=== PATIENT | male | born 1990 | race Caucasian/White ===

== ENCOUNTER 2022-06-16 15:14 | Emergency (ER) | payer MEDICAID, SELFPAY ==
[2022-06-16 15:21] VITALS: BP 139/91; PULSE 66; RESP 16; TEMP 36.6; O2SAT 99
--- NOTE | 2022-06-16 15:39 | ED_ITS ---
HPI - General Adult General: Chief complaint: Dental/Oral Stated complaint: tooth pain/chills/sweats/n/v Time Seen by Provider: 06/16/22 15:32 Source: patient Mode of arrival: ambulatory Limitations: no limitations History of Present Illness: 31-year-old male presents to the ER today for dental pain and also low back pain. Patient reports he has had multiple dental infections and abscesses above his 2 front teeth. Patient reports been treated multiple times but has never seen a dentist due to cost. Patient reports his last round of antibiotics was only 5 days and about 2 weeks after finishing that the pain returned. Patient reports he is concerned he is septic because of the dental infection. He reports occasionally getting chills and fevers but this has been going on longer than the dental pain. Patient also reports low back pain that worsened after he stopped his foot at the dog yesterday. Patient reports a history of RA and osteoarthritis. Patient reports he does not take an anti-inflammatory due to a history of gastric ulcers. Patient has not tried anything other than Tylenol for the back pain. Denies any numbness or tingling but reports some mild radiating pain down the left leg. Denies any loss of bowel or bladder control. Review of Systems General: Reports: 10 or more systems reviewed and unremarkable except in HPI and below PFSH ED PFSH: Medical History Hypertension Surgical History Hx of appendectomy Social History Smoking and tobacco status: current every day smoker Second hand smoke exposure: Yes Alcohol intake: current Alcohol intake frequency: few times a month Physical Exam Const: COMMON NORMALS: no acute distress, average body habitus, patient oriented x3, no limitations, healthy appearing, alert and well nourished HENMT: COMMON NORMALS: normocephalic, atraumatic, external ears normal, Normal nasal mucous membranes and turbinates present and moist oral mucous membranes HEAD & SCALP: normocephalic and atraumatic NOSE: Normal nasal mucous membranes and turbinates present EXTERNAL EAR: Yes external ears normal OTHER: Patient has poor dentition throughout. The gingiva is noted to be irritated about the front 2 incisors. There is also some mild swelling but no obvious abscess. Eye: COMMON NORMALS: EOMs intact bilaterally and conjunctivae normal CONJUNCTIVA: Yes conjunctivae normal Lymph: LYMPHATIC: no lymphadenopathy noted Resp: COMMON NORMALS: normal respiratory effort, No retractions and clear to auscultation bilaterally AUSCULTATION: clear to auscultation bilaterally Cardio: COMMON NORMALS: regular rate, regular rhythm and No murmurs present (C ardio) RATE: regular rate RHYTHM: regular rhythm GI: COMMON NORMALS: Normal to inspection, nondistended, normoactive bowel sounds present, Soft to palpation and non-tender PALPATION: Yes Soft to palpation Back/Pelvis: OTHER: Patient has left-sided paraspinal muscle tenderness and mild SI joint ten derness. Normal range of motion otherwise noted. Extremity: COMMON NORMALS: normal to inspection and full ROM Neuro: COMMON NORMALS: patient oriented x3 SENSORIUM/ORIENTATION: Yes alert Psych: COMMON NORMALS: mental status grossly normal, Normal thought process present and cooperative THOUGHT PROCESS: Normal thought process present Skin: COMMON NORMALS: no rashes or lesions noted and no wounds GENERAL SKIN EXAM: no rashes or lesions noted Course ED course: .Patient presents for ongoing dental pain and acute low back pain patient does have a history of low back issues however stopped us with the dog y and it does hurt with some radiating pain since then. He has not take anything for pain as he cannot take NSAIDs. He reports the dental infection that comes and goes but his last treatment was with amoxicillin and he only took it for 5 days. He does not have the money to go to a dentist. On exam there is nothing that indicates any red flags. Patient has some paraspinal muscle tenderness and also some gingival swelling. No imaging necessary at this time as this is a chronic issue. We did discuss patient needs to find a dentist and also a PCP. We will do a CBC as patient is concerned about sepsis. He is otherwise stable and vitals are unremarkable. Vital Signs: Vital signs: Vital Signs Temperature 97.8 F 06/16/22 15:21 Pulse Rate 66 06/16/22 15:21 Respiratory Rate 16 06/16/22 15:21 Blood Pressure 139/91 06/16/22 15:21 Pulse Oximetry 99 06/16/22 15:21 Oxygen Delivery Me thod 06/16/22 15:21 MDM - General Adult Medical Decision Making Has a slightly bumped white count however still does not indicate any type of septic behaviors. Vitals are stable and normal. Patient is afebrile. We will treat patient's dental infection with Keflex at this time. I discussed the importance with patient of finding a dentist and getting this issue taking care of as it is always going to be recurrent. Patient was given dental contacts. We will also treat patient's low back pain with a Medrol Dosepak and muscle relaxer. This appears to be more muscle spasm than bony or neurological in nature. There is some radiating pain but likely from inflammation. Recommended warm, moist heat. Topical muscle rubs recommended. Discussed the importance with patient finding a PCP who he is happy with. Recommend he follow-up with them later this week. Return to the ER with new or worsening symptoms. Patient verbalized understanding and was in agreement with the treatment plan. Lab Data 06/16/22 16:02 Laboratory Results WBC 11.2 10^3/uL (4.0-10.0) H 06/16/22 16:02 RBC 5.32 10^6/uL (4.1-5.3) H 06/16/22 16:02 Hgb 15.9 g/dL (11.7-16.6) 06/16/22 16:02 Hct 47.2 % (42.0-52.0) 06/16/22 16:02 MCV 88.7 fl (80-94) 06/16/22 16:02 MCH 29.9 pg (28.0-34.0) 06/16/22 16:02 MCHC 33.7 g/dL (30.0-36.0) 06/16/22 16:02 RDW 12.2 % (12.1-15.1) 06/16/22 16:02 Plt Count 314 10^3/cmm (130-400) 06/16/22 16:02 MPV 10.7 fL (7.4-10.4) H 06/16/22 16:02 Neut % (Auto) 70.2 % 06/16/22 16:02 Lymph % (Auto) 20.9 % 06/16/22 16:02 [place] % (Auto) 7.1 % 06/16/22 16:02 Eos % (Auto) 1.1 % 06/16/22 16:02 Baso % (Auto) 0.4 % 06/16/22 16:02 Neut # (Auto) 7.87 10^3/uL (1.8-7.7) H 06/16/22 16:02 Lymph # (Auto) 2.4 10^3/uL (0.8-4.8) 06/16/22 16:02 [place] # (Auto) 0.8 10^3/uL (0.2-0.9) 06/16/22 16:02 Eos # (Auto) 0.1 10^3/uL (0.0-0.8) 06/16/22 16:02 Baso # (Auto) 0.1 10^3/uL (0.0-0.1) 06/16/22 16:02 Nucleated RBC % (auto) 0 % 06/16/22 16:02 Nucleated RBCs # 0.0 /100WBC 06/16/22 16:02 Critical Care Time Critical Care Time: Critical Care Time: No Discharge Plan Discharge Patient Disposition: Home Clinical Impression: Dental infection Low back pain Qualifiers: Chronicity: chronic Back pain laterality: left Sciatica presence: with sciatica Sciatica laterality: sciatica of left side Qualified Code(s): M54.42 - Lumbago with sciatica, left side Condition: Stable Prescriptions: New cephalexin 500 mg capsule 500 mg PO TID 10 Days Qty: 30 0RF methocarbamol 750 mg tablet 750 mg PO Q8H Qty: 21 0RF Medrol (Danish) 4 mg tablets,dose pack See Rx Instructions .ROUTE .COMPLEX Qty: 21 0RF Rx Instructions: orally per package directions No Action omeprazole magnesium [Prilosec OTC] 20 mg tablet,delayed release (DR/EC) 20 mg PO DAILY Qty: 90 3RF ibuprofen 800 mg tablet 800 mg PO Q8H Qty: 90 3RF hydroxyzine HCl 25 mg tablet 25 mg PO TID PRN (Reason: anxiety) Qty: 30 3RF hydrochlorothiazide 12.5 mg tablet 12.5 mg PO DAILY Qty: 90 3RF dicyclomine 20 mg tablet 20 mg PO BID Qty: 180 2RF amlodipine 5 mg tablet 5 mg PO DAILY Qty: 90 3RF montelukast 10 mg tablet 10 mg PO DAILY Qty: 90 3RF chlorhexidine gluconate 0.12 % mouthwash 15 ml buccal BID Qty: 473 0RF hyoscyamine sulfate 0.125 mg tablet, sublingual 0.125 mg PO QID Qty: 20 0RF Discharge Orders: Discharge ED (Routine); Ordered 06/16/22 Ordered By: Marie Gramajo Referrals: Tapan Fernandez FNP [Primary Care Provider] - Discharge Diet: Usual diet Discharge Activity: Increase activity as tolerated Patient Instructions: Opioid Safety, Pain Management Activity Restrictions/Additional Instructions: Take cephalexin as prescribed. Take Robaxin for back pain as prescribed in addition to the steroids. Follow-up with a PCP and a dentist as discussed. Return to the ER with new or worsening symptoms. Coding Level of Care Code ED Correctional Counselor for Mirza Fleming
[2022-06-16 16:40] LABS: Basophils # 0.1 10^3/uL (0.0-0.1); Basophils % 0.4 %; Eosinophils # 0.1 10^3/uL (0.0-0.8); Eosinophils % 1.1 %; Hematocrit 47.2 % (42.0-52.0); Hemoglobin 15.9 g/dL (11.7-16.6); Lymphocytes # 2.4 10^3/uL (0.8-4.8); Lymphocytes % 20.9 %; Mean Corpuscular HGB Conc 33.7 g/dL (30.0-36.0); Mean Corpuscular Hemoglobin 29.9 pg (28.0-34.0); Mean Corpuscular Volume 88.7 fl (80-94); Mean Platelet Volume 10.7 fL (7.4-10.4); Monocytes # 0.8 10^3/uL (0.2-0.9); Monocytes % 7.1 %; Neutrophils # 7.87 10^3/uL (1.8-7.7); Neutrophils % 70.2 %; Nucleated Red Blood Cells % 0 %; Platelet Count 314 10^3/cmm (130-400); Red Blood Count 5.32 10^6/uL (4.1-5.3); Red Cell Distribution Width 12.2 % (12.1-15.1); White Blood Count 11.2 10^3/uL (4.0-10.0)
[2022-06-16] MEDS: ketorolac 30 mg/mL INJ IM (17:01)
--- NOTE | 2022-06-17 11:16 | DCPLANNER ---
Addendum entered by Bhavya Grey 06/25/22 08:53: This appointment was rescheduled Original Note: regional operations manager had message to speak with patient about getting a primary care physician. regional operations manager spoke with patient about getting established with a primary care. regional operations manager called [facility], spoke with Keyla Solomon, gave clinic patients information, a follow up appointment was scheduled for Friday, June 24, 2022 at 9:45 with Nick Jeffries. regional operations manager gave patient the appointment information.
== END 2022-06-16 17:12 | disposition home or self-care (01) ==
PROVIDERS: Emergency Provider Physician Assistant; PCP Nurse Practitioner Family
DX: K04.7 Periapical abscess without sinus (principal); M54.42 Lumbago with sciatica, left side; I10 Essential (primary) hypertension; F17.210 Nicotine dependence, cigarettes, uncomplicated
CPT/HCPCS: 85025; 96372; 99284; J1885

== ENCOUNTER 2022-09-04 19:47 | Emergency (ER) | payer MEDICAID, SELFPAY ==
[2022-09-04 19:56] VITALS: BP 140/84; PULSE 89; RESP 18; TEMP 36.4; O2SAT 97; BMI 28.8
[2022-09-04 19:59] VITALS: BP 117/78; PULSE 86; RESP 14; O2SAT 95
--- NOTE | 2022-09-04 20:19 | XRR_ITS ---
PROCEDURE INFORMATION: Exam: XR Chest Exam date and time: 09/04/2022 8:25 PM Age: 31 years old Clinical indication: Pain; Chest pressure; Additional info: Chest wall pain TECHNIQUE: Imaging protocol: Radiologic exam of the chest. Views: 1 view. COMPARISON: No relevant prior studies available. FINDINGS: Lungs: Unremarkable. No consolidation. Pleural spaces: Unremarkable. No pleural effusion. No pneumothorax. Heart/Mediastinum: Unremarkable. No cardiomegaly. Bones/joints: Unremarkable. XR/XR chest 1V portable [id number] IMPRESSION: No acute findings.
--- NOTE | 2022-09-04 20:19 | ECG_ITS ---
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 Measurements Intervals [place] Rate: 90 P: 53 ME: 148 QRS: 47 QRSD: 98 T: 40 QT: 355 QTc: 435 Interpretive Statements SINUS RHYTHM POSSIBLE LEFT ATRIAL ENLARGEMENT [-0.1mV P-WAVE IN V1/V2] No previous ECG available for comparison Electronically Signed On 09-05-2022 7:19:34 CDT by Ashley Montano M.D. [email or web address] lefl[facility] hospitalInksharesselect medical specialty [facility] southNatural [id number]
--- NOTE | 2022-09-04 20:22 | ED_ITS ---
HPI - SOB/Dyspnea General: Chief Complaint: Shortness of Breath/Dyspnea Stated Complaint: SOB\Pain In Sternm Time Seen by Provider: 09/04/22 20:19 History of Present Illness: HPI Narrative: 31-year-old male patient comes in today with complaints of shortness of breath and some chest wall pain. Patient reports on Friday [place] and does not know if that is where his pain in his sternal costal area comes from. Patient also was concerned about some increased shortness of breath, patient has a history of asthma and thinks that allergies may be aggravating his asthma some. Patient appears nontoxic and in mild pain at this time. Patient reports history of rheumatoid arthritis, asthma. Patient reports he has not been taking any routine medications because most of his medicines are out of date. Patient does not have a primary care. Associated symptoms: Deny extremity pain, fever(s) or vomiting Review of Systems General: Reports: 10 or more systems reviewed and unremarkable except in HPI and below Const: Denies: fever(s) Card: Reports: other (Tenderness to chest wall) Resp: Reports: dyspnea GI: Denies: vomiting : Denies: difficulty urinating Musc: Denies: back pain or extremity pain Skin/Breast: Denies: rash Neuro: Denies: headache(s) PFSH ED PFSH: Medical History Hypertension Surgical History Hx of appendectomy Social History Smoking and tobacco status: current every day smoker Second hand smoke exposure: Yes Alcohol intake: current Alcohol intake frequency: few times a month Substance/Drug Use: current Physical Exam Const: COMMON NORMALS: alert HENMT: COMMON NORMALS: atraumatic HEAD & SCALP: atraumatic Neck/C-Spine: COMMON NORMALS: full ROM Chest: CHEST: Yes tenderness (Mild tenderness right sternal costal margin) Resp: COMMON NORMALS: normal respiratory effort and clear to auscultation bilaterally AUSCULTATION: clear to auscultation bilaterally Cardio: COMMON NORMALS: regular rate and regular rhythm RATE: regular rate RHYTHM: regular rhythm GI: COMMON NORMALS: non-tender Back/Pelvis: COMMON NORMALS: thoracic and lumbar spine normal to inspection Neuro: SENSORIUM/ORIENTATION: Yes alert Skin: COMMON NORMALS: turgor normal GENERAL SKIN EXAM: turgor normal Course Vital Signs: Vital signs: Vital Signs Temperature 97.6 F 09/04/22 19:56 Pulse Rate 89 09/04/22 21:41 Respiratory Rate 20 H 09/04/22 21:41 Blood Pressure 120/71 09/04/22 21:26 Pulse Oximetry 99 09/04/22 21:41 Oxygen Delivery Me thod Room Air 09/04/22 21:41 MDM - SOB/Dyspnea Medical Decision Making 31-year-old male patient comes in today for complaints of chest wall pain and shortness of breath. On exam lungs are clear to auscultation. Patient does have some sternal costal margin pain on the right side with palpation. Vital signs are normal. Skin is warm and dry. Differential diagnosis includes but not limited to asthma exacerbation, malingering, costochondritis, muscle strain, anxiety. Chest x-ray was unremarkable. EKG was sinus rhythm with no ST elevation or ectopy. Patient was treated with 10 mg of dexamethasone IM for chest wall inflammation. Patient was also given a albuterol inhaler to cover for asthma and symptoms. Case management was consulted for patient follow-up with primary care. Lab Data Labs/Radiology: Radiology Impressions Chest X-Ray 09/04/22 20:19 IMPRESSION: No acute findings. Discharge Plan Discharge Patient Disposition: Home Clinical Impression: Costochondritis Asthma with exacerbation Qualifiers: Asthma severity: moderate Asthma persistence: persistent Qualified Code(s): J45.41 - Moderate persistent asthma with (acute) exacerbation Condition: Stable Prescriptions: No Action omeprazole magnesium [Prilosec OTC] 20 mg tablet,delayed release (DR/EC) 20 mg PO DAILY Qty: 90 3RF ibuprofen 800 mg tablet 800 mg PO Q8H Qty: 90 3RF hydroxyzine HCl 25 mg tablet 25 mg PO TID PRN (Reason: anxiety) Qty: 30 3RF hydrochlorothiazide 12.5 mg tablet 12.5 mg PO DAILY Qty: 90 3RF dicyclomine 20 mg tablet 20 mg PO BID Qty: 180 2RF amlodipine 5 mg tablet 5 mg PO DAILY Qty: 90 3RF montelukast 10 mg tablet 10 mg PO DAILY Qty: 90 3RF chlorhexidine gluconate 0.12 % mouthwash 15 ml buccal BID Qty: 473 0RF hyoscyamine sulfate 0.125 mg tablet, sublingual 0.125 mg PO QID Qty: 20 0RF methocarbamol 750 mg tablet 750 mg PO Q8H Qty: 21 0RF Medrol (Danish) 4 mg tablets,dose pack See Rx Instructions .ROUTE .COMPLEX Qty: 21 0RF Rx Instructions: orally per package directions Discharge Orders: Discharge ED (Routine); Ordered 09/04/22 Ordered By: Vijay Machado Patient Instructions: Asthma (ED) Activity Restrictions/Additional Instructions: Home and rest. Use inhaler as needed. Use acetaminophen and ibuprofen for pain. Follow-up with primary care. Case management will contact you regarding follow-up appointment with primary care. Coding Level of Care Code ED Executive Account Manager for Mirza Fleming
[2022-09-04] MEDS: dexamethasone 10 mg/mL INJ IM (21:23)
[2022-09-04 21:26] VITALS: BP 120/71; PULSE 93; RESP 14; O2SAT 100
[2022-09-04 21:41] VITALS: PULSE 89; RESP 20; O2SAT 99
[2022-09-04] MEDS: albuterol 8 gm MDI 2 PUFF INHALATION (21:41)
--- NOTE | 2022-09-05 09:17 | DCPLANNER ---
Addendum entered by Bhavya Grey 09/22/22 08:13: Patient had a followup appointment scheduled with Dr. Mi to establish care - patient did attend appointment. Original Note: internal security manager called patient due to no primary care physician. internal security manager called [facility], gave clinic patients information, a follow up appointment was scheduled for Tuesday September 20, 2022 at 1:[address] Mi at [facility]. Patient is aware of appointment.
== END 2022-09-04 22:07 | disposition home or self-care (01) ==
PROVIDERS: Emergency Provider Nurse Practitioner Family
DX: J45.41 Moderate persistent asthma with (acute) exacerbation (principal); M94.0 Chondrocostal junction syndrome [Tietze]; I10 Essential (primary) hypertension; F17.210 Nicotine dependence, cigarettes, uncomplicated
CPT/HCPCS: 71045; 93005; 94640; 96372; 99284; J1100; J3535

== ENCOUNTER 2022-09-18 06:00 | Emergency (ER) | payer MEDICAID, SELFPAY ==
[2022-09-18 06:12] VITALS: BMI 28.5
[2022-09-18 06:14] VITALS: BP 154/101; PULSE 73; RESP 16; TEMP 36.4; O2SAT 100
--- NOTE | 2022-09-18 06:36 | ED_ITS ---
HPI - Back Pain/Injury General: Chief Complaint: Back Pain/Injury Stated Complaint: back pain down into leg Time Seen by Provider: 09/18/22 06:14 Source: patient Mode of arrival: ambulatory History of Present Illness: 31-year-old male presents to the emergency room with complaints of back pain with pain radiating into his right leg. He had no precipitating injury associated with this he is not any difficulty with bowel or bladder. Pain has been progressively worsening over the last day or 2. Radiates from his low back into his right lateral thigh and down to his right great toe, as well as up from his lumbar spine to his mid back.. He has not previously had any back surgeries but he has had problems with his back pain in the past. Patient states he has rheumatoid arthritis which resulted in a fracture in his hand. 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 MD elicited complaint: back pain Pertinent past history: prior back pain Onset (ago): hour(s) Timing: constant Severity: moderate Similar Symptoms Previously: Yes Quality: burning Location: lumbar spine Radiation: right upper leg and right leg below the knee Exacerbating factors: none Relieving factors: none Associated symptoms: Reports difficulty walking; Deny abdominal pain, arthralgias, chills, fatigue, fecal incontinence, fever(s), myalgias, numbness, tingling/numbness/burning, urinary frequency, urinary urgency or weakness Review of Systems Const: Denies: fever(s), chills or fatigue Card: Denies: chest pain GI: Denies: abdominal pain or fecal incontinence : Denies: difficulty urinating, urinary urgency or difficulty starting urination Neuro: Reports: numbness in extremities and difficulty walking PFS ED PFSH: Medical History Hypertension Surgical History Hx of appendectomy Social History Smoking and tobacco status: current every day smoker Second hand smoke exposure: Yes Alcohol intake: current Alcohol intake frequency: few times a month Substance/Drug Use: current Physical Exam Const: GENERAL APPEARANCE: cooperative ORIENTATION/CONSCIOUSNESS: Yes awake, Yes oriented to person, Yes oriented to place and Yes oriented to time HENMT: COMMON NORMALS: normocephalic, atraumatic and hearing grossly normal bilaterally HEAD & SCALP: normocephalic and atraumatic Resp: COMMON NORMALS: normal respiratory effort, No retractions, No use of accessory muscles and clear to auscultation bilaterally AUSCULTATION: clear to auscultation bilaterally Cardio: COMMON NORMALS: regular rate, regular rhythm and No murmurs present (Cardio) RATE: regular rate RHYTHM: regular rhythm Extremity: COMMON NORMALS: normal to inspection, capillary refill normal, no clubbing, cyanosis or edema, no calf tenderness and no pedal edema OTHER: Straight leg raising is negative bilaterally. Dorsum plantar flex strength are 5 of 5. Extension and great toe patient has 4-5 strength on the right 5 of 5 on the left. Slight decrease sensation in the L4-5 distribution on the right compared to the left. Neuro: SENSORIUM/ORIENTATION: Yes oriented to person, Yes oriented to place and Yes oriented to time Skin: COMMON NORMALS: no rashes or lesions noted GENERAL SKIN EXAM: no rashes or lesions noted Course Vital Signs: Vital signs: Vital Signs Temperature 97.5 F L 09/18/22 06:14 Pulse Rate 70 09/18/22 07:08 Respiratory Rate 16 09/18/22 07:08 Blood Pressure 130/94 09/18/22 07:08 Pulse Oximetry 96 09/18/22 07:08 Oxygen Delivery Me thod Room Air 09/18/22 07:08 MDM - Back Pain/Injury Medical Decision Making No red flag symptoms at this point, nontraumatic back pain. His straight leg raising test was negative. He tells me he has had skin cancers removed in the past but never had any chemo or radiation for these. He has no urinary retention or fecal incontinence. Deep tendon reflexes +1/4 bilaterally patellar tendon dorsum plantar flex strength equal bilaterally and extension of his great toe slightly decreased on the right compared to the left appears to be due to pain.. Patient given medications in the emergency room to control symptoms will discharge home with tizanidine prednisone taper diclofenac. Case management make arrangements for outpatient MRI of the lumbar spine and referral to orthopedic spine surgery. Differential Diagnosis Likely lumbar radiculopathy, sciatica and strain of lumbar region Medical Records I reviewed the patient's medical records. Labs I reviewed the patient's lab results. Discharge Plan Discharge Patient Disposition: Home Clinical Impression: Lumbar radiculopathy Condition: Stable Prescriptions: New tizanidine 4 mg tablet 4 mg PO Q6H PRN (Reason: muscle spasticity) Qty: 20 0RF Rx Instructions: do not exceed 3 doses per 24 hrs hydrocodone-acetaminophen 5-325 mg tablet 1 tab PO Q6H PRN (Reason: pain) Qty: 10 0RF prednisone 20 mg tablet 20 mg PO TID Qty: 15 0RF Rx Instructions: 1 p.o. 3 times daily x3 days, 1 p.o. twice daily x2 days, 1 p.o. daily x2 days diclofenac sodium 75 mg tablet,delayed release (DR/EC) 75 mg PO Q12H PRN (Reason: pain) Qty: 20 0RF Discontinued ibuprofen 800 mg tablet 800 mg PO Q8H Qty: 90 3RF methocarbamol 750 mg tablet 750 mg PO Q8H Qty: 21 0RF methylprednisolone [Medrol (Danish)] 4 mg tablets,dose pack See Rx Instructions .ROUTE .COMPLEX Qty: 21 0RF Rx Instructions: orally per package directions No Action omeprazole magnesium [Prilosec OTC] 20 mg tablet,delayed release (DR/EC) 20 mg PO DAILY Qty: 90 3RF hydroxyzine HCl 25 mg tablet 25 mg PO TID PRN (Reason: anxiety) Qty: 30 3RF hydrochlorothiazide 12.5 mg tablet 12.5 mg PO DAILY Qty: 90 3RF dicyclomine 20 mg tablet 20 mg PO BID Qty: 180 2RF amlodipine 5 mg tablet 5 mg PO DAILY Qty: 90 3RF montelukast 10 mg tablet 10 mg PO DAILY Qty: 90 3RF chlorhexidine gluconate 0.12 % mouthwash 15 ml buccal BID Qty: 473 0RF hyoscyamine sulfate 0.125 mg tablet, sublingual 0.125 mg PO QID Qty: 20 0RF Discharge Orders: Discharge ED (Routine); Ordered 09/18/22 Ordered By: Anirudh Guerrero Referrals: Aaron Mi MD [Primary Care Provider] - Discharge Diet: Usual diet Discharge Activity: Limit activity as instructed Patient Instructions: Lumbar Radiculopathy (ED), Opioid Safety, Pain Management Activity Restrictions/Additional Instructions: Case management make arrangements for a outpatient MRI of the lumbar spine as well as referral to orthopedic clinic and to help you establish with a primary care physician. Start the oral steroid taper tomorrow use the diclofenac hydrocodone tizanidine as needed. Stand Alone Forms: Work/School Release Coding Level of Care Code ED [place] for Mirza Fleming
[2022-09-18] MEDS: morphine 4 mg/mL SDV 1 mL IVP (06:55)
[2022-09-18] MEDS: dexamethasone 10 mg/mL INJ IVP (06:55)
[2022-09-18] MEDS: ketorolac 30 mg/mL INJ IVP (06:55)
[2022-09-18] MEDS: tizanidine 4 mg Tablet 2 MG PO (07:02)
[2022-09-18 07:08] VITALS: BP 130/94; PULSE 70; RESP 16; O2SAT 96
--- NOTE | 2022-09-18 07:57 | DCPLANNER ---
Addendum entered by Bhavya Grey 10/11/22 09:47: The MRI was inactivated, waiting on patient to decide if he wanted to proceed with testing. Addendum entered by Bhavya Grey 09/19/22 10:21: business unit manager received the following message from the ortho clinic regarding follow up appointment: patient mailbox is full - we will want to see him after his MRI is completed. Also there is a note in his chart to primary care stating he injured himself at work - need clarification on that if he calls back. Original Note: business unit manager had message to schedule a follow up appointment for patient with ortho. business unit manager sent patients information to the front office staff at ortho. Patients information will be printed and reviewed. Clinic will call patient with appointment information. business unit manager also had message to schedule an outpatient MRI for patient. business unit manager faxed signed order to centralized scheduling, who will call patient with appointment information.
== END 2022-09-18 07:57 | disposition home or self-care (01) ==
PROVIDERS: Emergency Provider Family Medicine; PCP Family Medicine
DX: M54.16 Radiculopathy, lumbar region (principal)
CPT/HCPCS: 96374; 96375; 99284; J1100; J1885; J2270

== ENCOUNTER → 2022-09-20 14:14 | Outpatient (BNVA) | payer MEDICAID, SELFPAY | PROVIDERS: PCP Family Medicine; Visit Provider Family Medicine | DX: I10 Essential (primary) hypertension (principal); M06.9 Rheumatoid arthritis, unspecified; C43.9 Malignant melanoma of skin, unspecified; K51.90 Ulcerative colitis, unspecified, without complications; M54.42 Lumbago with sciatica, left side; G89.29 Other chronic pain; M54.16 Radiculopathy, lumbar region; K58.9 Irritable bowel syndrome, unspecified; F43.10 Post-traumatic stress disorder, unspecified; F17.200 Nicotine dependence, unspecified, uncomplicated; F12.90 Cannabis use, unspecified, uncomplicated; Z71.6 Tobacco abuse counseling | CPT/HCPCS: 80053; 80061; 81000; 83036; 84439; 84443; 85025; 85651; 86140; 86200; 86431; 86705; 86706; 86709; 86803; 87340 ==

== ENCOUNTER → 2022-12-27 10:46 | Outpatient (BNVA) | payer MEDICAID, SELFPAY | PROVIDERS: PCP Family Medicine; Visit Provider Nurse Practitioner Family | DX: Z48.02 Encounter for removal of sutures (principal) | CPT/HCPCS: 11102; 99204 ==

== ENCOUNTER 2023-02-07 14:08 | Emergency (ER) | payer MEDICAID, SELFPAY ==
[2023-02-07 14:22] VITALS: PULSE 72; RESP 16; TEMP 36.9; O2SAT 99; BMI 27.8
--- NOTE | 2023-02-07 14:48 | W.ED.HEATRA ---
HPI - Head Injury General: Chief complaint: Head Injury Stated complaint: hit head yesterday, dizzy, passed out Time Seen by Provider: 02/07/23 14:48 Source: patient Mode of arrival: ambulatory Limitations: no limitations History of Present Illness: Patient is a 32-year-old male presents to ED today for evaluation of a head injury. 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 Patient states since then he has had intermittent headache, visual changes, dizziness, and nausea. No LOC. He has not noticed any ecchymosis to scalp/ears/face. MD Complaint: head injury Onset (ago): day(s) (yesterday) Mechanism of Injury: work related injury Place: work Loss of Consciousness: no Location of injury: parietal and temporal Severity: moderate Other Injuries: none Associated symptoms: Reports nausea, vertigo and visual changes; Deny confusion, neck pain or vomiting Review of Systems Eyes: Reports: change in vision (intermittent-normal now); Denies: blurry vision, photophobia, floaters or seeing flashes ENMT: Denies: ear or mastoid pain, change in hearing, tinnitus, disequilibrium, nasal discharge, epistaxis or sinus pain Card: Denies: chest pain Resp: Denies: dyspnea GI: Reports: nausea; Denies: abdominal pain or vomiting Musc: Denies: neck pain Neuro: Reports: headache(s), dizziness and vertigo; Denies: numbness in extremities, weakness in extremities, sensory changes, lack of coordination, difficulty walking, frequent falls, confusion, behavioral changes, Slurred speech present, difficulty communicating thoughts, seizure-like activity, involuntary movements or restless legs [facility] ED PFSH: Medical History History of seizures Hypertension Melanoma Migraines Rheumatoid arthritis Skin cancer (melanoma) Surgical History History of colonoscopy History of dental surgery History of endoscopy History of foot surgery tendon repair History of hand surgery History of neck surgery removal of cyst Hx of appendectomy Family History Mother Cancer unknown S/P coronary artery stent placement Myocardial infarction Family/Other Cancer Paternal uncle-leukemia Other Bleeding disorder CAD (coronary artery disease) Chronic kidney disease (CKD) Diabetes Hyperlipidemia Hypertension Stroke Social History Smoking and tobacco/nicotine status: current every day tobacco/nicotine user cigarettes Packs smoked per day: 1 [ Other cigarette details: 1-2 ppd tries to stay under 1 ppd ] Second hand smoke exposure: Yes Alcohol intake: current Alcohol intake frequency: few times a month Substance/Drug Use: current Substance/Drug use frequency: daily Lives independently: Yes Marital status: Single Current occupational status: unemployed Special zahida needs: No Agree to transfusion: Yes Physical Exam Const: COMMON NORMALS: no acute distress, average body habitus, patient oriented x3, no limitations, healthy appearing, alert and well nourished GENERAL APPEARANCE: cooperative ORIENTATION/CONSCIOUSNESS: Yes awake, Yes oriented to person, Yes oriented to place and Yes oriented to time HENMT: COMMON NORMALS: normocephalic, atraumatic, hearing grossly normal bilaterally, external ears normal, EAC's normal and TM's normal bilaterally HEAD & SCALP: normal to inspection, normocephalic and atraumatic FACE & SINUS: normal facial exam EXTERNAL EAR: Yes external ears normal EXTERNAL AUDITORY CANAL: EAC's normal TYMPANIC MEMBRANE: TM's normal bilaterally Eye: GENERAL EYE: appearance normal, both eyes and all related structures and normal light reflex DIRECT OPHTHALMOSCOPY: Yes normal light reflex Neck/C-Spine: COMMON NORMALS: full ROM GENERAL: Yes normal visual inspection CERVICAL SPINE: No Cervical spine tenderness Neuro: VIVIANA COMA SCALE: document GCS findings [place] coma scale eye opening: Spontaneous [place] coma scale verbal response: Orientated Viviana coma scale motor response: Obey commands [place] coma scale total score: 15 COMMON NORMALS: patient oriented x3, CN's II-XII intact bilaterally, moves all extremities, no focal motor deficits, no sensory deficits noted and gait normal SENSORIUM/ORIENTATION: Yes alert, Yes oriented to person, Yes oriented to place and Yes oriented to time Skin: TRAUMA: no lacerations or abrasions Course Vital Signs: Vital signs: Vital Signs Temperature 98.4 F 02/07/23 14:22 Pulse Rate 72 02/07/23 14:22 Respiratory Rate 16 02/07/23 14:22 Pulse Oximetry 99 02/07/23 14:22 Oxygen Delivery Me thod Room Air 02/07/23 14:22 MDM - Head Injury Medcial Decision Making CT negative. He will be allowed discharge with instructions for PCP follow up if symptoms do not begin to improve over the next week. All radiology interpretation(s) finalized by discharge Discharge Plan Discharge Patient Disposition: Home Clinical Impression: Contusion of head Qualifiers: Encounter type: initial encounter Contusion of head detail: scalp Qualified Code(s): S00.03XA - Contusion of scalp, initial encounter Condition: Stable Prescriptions: No Action amlodipine 5 mg tablet 5 mg PO DAILY Qty: 90 1RF hydrochlorothiazide 12.5 mg tablet 12.5 mg PO DAILY Qty: 90 1RF hyoscyamine sulfate 0.125 mg tablet, sublingual 0.125 mg PO QID Qty: 30 1RF dicyclomine 20 mg tablet 20 mg PO BID Qty: 180 2RF albuterol sulfate 90 mcg/actuation HFA aerosol inhaler 2 puff inhalation Q6H PRN (Reason: shortness of breath or wheezing) Qty: 8.5 0RF tizanidine 4 mg tablet 4 mg PO Q6H PRN (Reason: muscle spasticity) Qty: 20 0RF Rx Instructions: do not exceed 3 doses per 24 hrs hydrocodone-acetaminophen 5-325 mg tablet 1 tab PO Q6H PRN (Reason: pain) Qty: 10 0RF prednisone 20 mg tablet 20 mg PO TID Qty: 15 0RF Rx Instructions: 1 p.o. 3 times daily x3 days, 1 p.o. twice daily x2 days, 1 p.o. daily x2 days diclofenac sodium 75 mg tablet,delayed release (DR/EC) 75 mg PO Q12H PRN (Reason: pain) Qty: 20 0RF Discharge Orders: Discharge ED (Routine); Ordered 02/07/23 Ordered By: Brigette Tovar Referrals: Aaron Mi MD [Primary Care Provider] - Patient Instructions: Head Injury (DC) Coding Level of Care Code ED Tractor Trailer Driver for Mirza Fleming
--- NOTE | 2023-02-07 15:01 | CT_ITS ---
WS: [id number] CT HEAD TECHNIQUE: Noncontrast CT of the head obtained from the skullbase to the vertex. CLINICAL INFORMATION: L head injury COMPARISON: None. DLP: 1033.[address] scans at [facility] use at least one of these dose optimization techniques: automated e xposure control; mA and/or kV adjustment per patient size (includes targeted exams where dose is matc hed to clinical indication); or iterative reconstruction. FINDINGS: No evidence of intracranial hemorrhage or mass effect. Ventricular system and basal cisterns are robert nt. No extra-axial fluid collections. No evidence of mass or mass effect. Normal pelaez-white differen tiation. Paranasal sinuses and mastoid air cells are well aerated. .Normal visualized soft tissues. IMPRESSION: 1. No evidence of intracranial hemorrhage or mass effect. 2. No acute intracranial findings.
== END 2023-02-07 16:50 | disposition home or self-care (01) ==
PROVIDERS: Emergency Provider Physician Assistant; PCP Family Medicine
DX: S00.03XA Contusion of scalp, initial encounter (principal); F17.210 Nicotine dependence, cigarettes, uncomplicated; I10 Essential (primary) hypertension; W20.8XXA Other cause of strike by thrown, projected or falling object, initial encounter; Y99.0 Civilian activity done for income or pay
CPT/HCPCS: 70450; 99284

== ENCOUNTER 2023-03-28 12:03 | Outpatient (CLI) | payer MEDICAID, SELFPAY ==
--- NOTE | 2023-03-28 | ECG_ITS ---
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 Interpretive Statements NAME OF STUDY: TREADMILL STRESS TEST INDICATION: Chest Pain, PROCEDURE: At the baseline, the patient's blood pressure was 145/89 with a heart rate of 77. The baseline electrocardiogram showed normal sinus rhythm with normal ST-Ts.. The patient exercised for 10 minutes and 24 seconds on a standard [place] protocol. Patient attained a maximum heart rate of 163 beats per minute(86% of the maximum predicted heart rate) with a blood pressure at the peak exercise of 167/81 mm Hg. The EKG at the peak exercise re vealed some nonspecific ST changes. Patient did not have any chest pain or any significant cardiac arrhythmias with the exercise During the recovery phase, there were no new changes. Blood pressure at the end of the recovery phase was 160/87 mm Hg with a heart rate of 86 per minute. CONCLUSION: 1. Nonspecific EKG changes to the treadmill exercise 2. No exercise-induced chest pain or cardiac arrhythmia 3. Good exercise tolerance, attained a maximum of 13.5 METs Electronically Signed On 04-07-2023 17:34:42 RISK CONTROL REPRESENTATIVE by Noah Barlow M.D. [id number]
[2023-03-28 12:07] VITALS: BMI 27.1
[2023-03-28 12:41] VITALS: BP 160/87; PULSE 90
== END 2023-03-28 12:04 | disposition home or self-care (01) ==
LOC: CDL 12:03
PROVIDERS: PCP Family Medicine; Visit Provider Internal Medicine Cardiovascular Disease
DX: R07.9 Chest pain, unspecified (principal)
CPT/HCPCS: 93017

== ENCOUNTER 2023-04-25 10:39 | Emergency (ER) | payer MEDICAID, SELFPAY ==
[2023-04-25 10:40] VITALS: BP 154/80; PULSE 90; RESP 18; TEMP 36.5; O2SAT 100
--- NOTE | 2023-04-25 11:07 | ECG_ITS ---
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 Measurements Intervals [place] Rate: 72 P: 60 ID: [id number] QRS: 60 QRSD: 96 T: 52 QT: 377 QTc: 413 Interpretive Statements SINUS RHYTHM Compared to ECG 09/04/2022 20:33:08 No significant changes Electronically Signed On 04-25-2023 12:21:07 SOCIAL PSYCHOLOGIST by Alban Huffman M.D. [id number]
--- NOTE | 2023-04-25 11:07 | CT_ITS ---
WS: [id number] CT CHEST, ABDOMEN AND PELVIS WITH CONTRAST HISTORY: upper/lower endo yesterday and now with marked pain TECHNIQUE: Contiguous 5 mm axial imaging performed through the chest, abdomen and pelvis with IV cont rast, oral contrast has not been provided. Coronal and sagittal reformats chest. Coronal and sagittal reformats through the abdomen and pelvis. All CT scans at [facility] use at least one of the se dose optimization techniques: automated exposure control; mA and/or kV adjustment per patient size (includes targeted exams where dose is matched to clinical indication); or iterative reconstruction. CONTRAST: Omnipaque 350; 100 mL IV. DLP: 1004.88 mGy.cm COMPARISON: None available. Chest CT: Lungs are clear. No pneumonia. No pulmonary mass. There is a micronodule at the lingula, im age 28 of series 5. Normal aorta and pulmonary artery. Normal heart. No pericardial or pleural effusi ons. No adenopathy. No mediastinal air. Abdomen CT: Normal size liver. Mild hepatic sparing along the falciform ligament. Normal spleen, panc reas, gallbladder, kidneys and adrenal glands. Normal aorta. Stomach is mildly distended with fluid. No small bowel obstruction. No colon obstruction. No free air or free fluid. No wall thickening. Possible duodenal diverticulum involving the third portion. Pelvic CT: No free fluid or adenopathy. Negative urinary bladder. No osseous abnormality. IMPRESSION: 1. No acute abnormality noted within the chest, abdomen or pelvis. 2. No mediastinal air. 3. No free intraperitoneal air. 4. No GI tract obstruction.
--- NOTE | 2023-04-25 11:10 | W.ED.ABDPA2 ---
HPI - Abdominal Pain General: Chief Complaint: Abdominal Pain Stated Complaint: SOB, body aches, cp Time Seen by Provider: 04/25/23 10:55 Source: patient and family Mode of arrival: ambulatory Limitations: no limitations History of Present Illness: This patient comes to our emergency department because of pain in his chest and abdomen began last evening. He apparently had a upper and lower endoscopy at [facility] at [facility] yesterday and was discharged approximately by noon. He ate a meal with his spouse yesterday and then last evening developed increasing pain in his mid chest as well as his abdomen. He has not any vomiting or diarrhea associated with his current presentation. He states that he is unable to eat or drink at this time. [facility] ED PFSH: Medical History History of seizures Hypertension Melanoma Migraines Rheumatoid arthritis Skin cancer (melanoma) Surgical History History of colonoscopy History of dental surgery History of endoscopy History of foot surgery tendon repair History of hand surgery History of neck surgery removal of cyst Hx of appendectomy Family History Mother Cancer unknown S/P coronary artery stent placement Myocardial infarction Family/Other Cancer Paternal uncle-leukemia Other Bleeding disorder CAD (coronary artery disease) Chronic kidney disease (CKD) Diabetes Hyperlipidemia Hypertension Stroke Social History Smoking and tobacco/nicotine status: current every day tobacco/nicotine user cigarettes Packs smoked per day: 1 [ Other cigarette details: 1-2 ppd tries to stay under 1 ppd ] Second hand smoke exposure: Yes Alcohol intake: current Alcohol intake frequency: few times a month Substance/Drug Use: current Substance/Drug use frequency: daily Lives independently: Yes Marital status: Single Current occupational status: unemployed Special zahida needs: No Agree to transfusion: Yes Course Vital Signs: Vital signs: Vital Signs Temperature 97.7 F 04/25/23 10:40 Pulse Rate 90 04/25/23 10:40 Respiratory Rate 18 04/25/23 10:40 Blood Pressure 154/80 04/25/23 10:40 Pulse Oximetry 100 04/25/23 10:40 MDM - Abdominal Pain Medical Decision Making This patient comes to the emergency department after being referred by his GI clinic. He apparently patient's had history of irritable bowel syndrome and other chronic abdominal complaints and had an upper endoscopy as well as a lower endoscopy performed at the [facility] at [facility] yesterday. Was uneventful according to his significant other who woke accompanies him but yesterday he ate a meal that on the way home from the clinic and later in the evening and today has complained of lower chest pain and abdominal pain primarily cramping in nature and sensation of fullness. He has not had any bowel movement since his procedure. He has not any vomiting. He denies any fevers or chills. Clinical examination revealed him to be displaying normal vital signs. He was in no acute distress. Chest examination was unremarkable with clear lung cancino and no evidence of respiratory distress his abdominal examination was remarkable for soft abdomen without any peritoneal signs. Because of recent endoscopy and concerned about potential perforation or other untoward effects of the procedure a workup was undertaken to include CT of chest abdomen pelvis which were reassuring. Laboratories were also reassuring. The patient was actually clinically stable. We discussed his findings in detail and recommended a trial of antispasmodics. He was comfortable with normal vital signs and suitable for outpatient management without any evidence at this time of an ongoing emergency medical condition. Medical Records I reviewed the patient's medical records. Prior evaluations by primary care with multiple somatic complaints. Lab Data I reviewed the patient's lab results. 04/25/23 11:18 04/25/23 11:18 Labs/Radiology: Laboratory Results WBC 8.31 10^3/uL (3.29-11.43) 04/25/23 11:18 RBC 5.41 10^6/uL (3.85-5.65) 04/25/23 11:18 Hgb 16.10 g/dL (11.27-16.99) 04/25/23 11:18 Hct 46.3 % (37-53) 04/25/23 11:18 MCV 85.6 fl (82-101) 04/25/23 11:18 MCH 29.8 pg (27-33) 04/25/23 11:18 MCHC 34.8 g/dL (30-55) 04/25/23 11:18 RDW 12.0 % (12.1-15.1) L 04/25/23 11:18 Plt Count 333 10^3/cmm (157-399) 04/25/23 11:18 MPV 10.1 fL (7.4-10.4) 04/25/23 11:18 Neut % (Auto) 67.1 % 04/25/23 11:18 Lymph % (Auto) 23.8 % 04/25/23 11:18 [place] % (Auto) 7.6 % 04/25/23 11:18 Eos % (Auto) 0.8 % 04/25/23 11:18 Baso % (Auto) 0.5 % 04/25/23 11:18 Neut # (Auto) 5.57 10^3/uL (1.8-7.7) 04/25/23 11:18 Lymph # (Auto) 2.0 10^3/uL (0.8-4.8) 04/25/23 11:18 [place] # (Auto) 0.6 10^3/uL (0.2-0.9) 04/25/23 11:18 Eos # (Auto) 0.1 10^3/uL (0.0-0.8) 04/25/23 11:18 Baso # (Auto) 0.0 10^3/uL (0.0-0.1) 04/25/23 11:18 Nucleated RBC % (auto) 0 % 04/25/23 11:18 Nucleated RBCs # 0.0 /100WBC 04/25/23 11:18 Sodium 140 mmol/L (136-145) 04/25/23 11:18 Potassium 4.1 mmol/L (3.5-5.1) 04/25/23 11:18 Chloride 105 mmol/L (98-107) 04/25/23 11:18 Carbon Dioxide 24 mmol/L (22-29) 04/25/23 11:18 Anion Gap 15.1 (5-19) 04/25/23 11:18 BUN 12 mg/dL (6-20) 04/25/23 11:18 Creatinine 0.8 mg/dL (0.7-1.2) 04/25/23 11:18 GFR Calculation 112.0 mL/min (90-130) 04/25/23 11:18 Glucose 105 mg/dL (65-115) 04/25/23 11:18 Calculated Osmolality 290 mOsm/kg (285-295) 04/25/23 11:18 Calcium 9.3 mg/dL (8.5-10.5) 04/25/23 11:18 Total Bilirubin 0.8 mg/dL (0.15-1.2) 04/25/23 11:18 AST 18 U/L (0-40) 04/25/23 11:18 ALT 13 U/L (0-41) 04/25/23 11:18 Alkaline Phosphatase 113 U/L (40-130) 04/25/23 11:18 Total Protein 7.2 g/dL (6.6-8.7) 04/25/23 11:18 Albumin 4.4 g/dL (3.5-5.2) 04/25/23 11:18 Globulin 2.8 g/dL (1.3-4.6) 04/25/23 11:18 All radiology interpretation(s) finalized by discharge EKG Data EKG 1: I personally reviewed and interpreted this EKG as follows: Interpretation: Contemporaneous review of resting EKG reveals a ventricular rate of 72 bpm. Normal HI interval, QRS duration, corrected QT interval. Normal axis. No acute ST-T wave changes. Consistent with a unremarkable EKG at this time. Discharge Plan Discharge Patient Disposition: Home Clinical Impression: Abdominal pain Qualifiers: Abdominal location: unspecified location Qualified Code(s): R10.9 - Unspecified abdominal pain IBS (irritable bowel syndrome) Qualifiers: Irritable bowel syndrome type: unspecified Qualified Code(s): K58.9 - Irritable bowel syndrome without diarrhea Condition: Stable Prescriptions: New hyoscyamine sulfate [Levsin] 0.125 mg tablet 0.125 mg PO Q6H PRN (Reason: dyspepsia) Qty: 30 0RF No Action dicyclomine 20 mg tablet 20 mg PO BID Qty: 180 2RF albuterol sulfate 90 mcg/actuation HFA aerosol inhaler 2 puff inhalation Q6H PRN (Reason: shortness of breath or wheezing) Qty: 8.5 0RF omeprazole 40 mg capsule,delayed release(DR/EC) 40 mg PO DAILY Discharge Orders: Discharge ED (Routine); Ordered 04/25/23 Ordered By: Tyler Richard Referrals: Aaron Mi MD [Primary Care Provider] - 2 weeks Discharge Diet: Advance as tolerated and Usual diet Discharge Activity: Resume usual activity Patient Instructions: Abdominal Pain (ED), Opioid Safety, Pain Management Activity Restrictions/Additional Instructions: As we discussed your CT scan was reassuring and that there was no evidence of any acute serious process at the time of your emergency department evaluation. Much of your symptoms may be related to your chronic irritable bowel disease or other functional bowel disorder. We have provided a trial of medication to help your symptoms as well. Follow-up with gastroenterology as scheduled but if you have worsening or changing or concerning symptoms you are welcome to return to the emergency department anytime for reevaluation. Coding Level of Care Code ED Internal Audit Director for Mirza Fleming
[2023-04-25 11:26] LABS: Basophils % 0.5 %; Eosinophils # 0.1 10^3/uL (0.0-0.8); Eosinophils % 0.8 %; Hematocrit 46.3 % (37-53); Lymphocytes % 23.8 %; Mean Corpuscular HGB Conc 34.8 g/dL (30-55); Mean Corpuscular Hemoglobin 29.8 pg (27-33); Mean Corpuscular Volume 85.6 fl (82-101); Mean Platelet Volume 10.1 fL (7.4-10.4); Monocytes # 0.6 10^3/uL (0.2-0.9); Monocytes % 7.6 %; Neutrophils # 5.57 10^3/uL (1.8-7.7); Neutrophils % 67.1 %; Nucleated Red Blood Cells % 0 %; Platelet Count 333 10^3/cmm (157-399); Red Blood Count 5.41 10^6/uL (3.85-5.65); White Blood Count 8.31 10^3/uL (3.29-11.43)
[2023-04-25] MEDS: lactated ringers 1,000 ML 999 ML IV (11:47)
[2023-04-25] MEDS: morphine 4 mg/mL SDV 1 mL IVP (11:47)
[2023-04-25] MEDS: ondansetron 2 mg/ML SDV 2 mL 4 MG IVP (11:47)
[2023-04-25 11:51] LABS: Alanine Aminotransferase 13 U/L (0-41); Albumin Level 4.4 g/dL (3.5-5.2); Alkaline Phosphatase 113 U/L (40-130); Anion Gap 15.1 (5-19); Aspartate Amino Transferase 18 U/L (0-40); Blood Urea Nitrogen 12 mg/dL (6-20); Calcium 9.3 mg/dL (8.5-10.5); Carbon Dioxide 24 mmol/L (22-29); Chloride 105 mmol/L (98-107); Globulin 2.8 g/dL (1.3-4.6); Glucose 105 mg/dL (65-115); Osmolality Calculated 290 mOsm/kg (285-295); Potassium 4.1 mmol/L (3.5-5.1); Sodium 140 mmol/L (136-145); Total Bilirubin 0.8 mg/dL (0.15-1.2); Total Protein 7.2 g/dL (6.6-8.7)
[2023-04-25] MEDS: iohexol 350 mg/mL 500 mL Btl (per mL) IV (12:17)
== END 2023-04-25 14:08 | disposition home or self-care (01) ==
PROVIDERS: Emergency Provider Emergency Medicine; PCP Family Medicine
DX: K58.9 Irritable bowel syndrome, unspecified (principal); Z72.0 Tobacco use; I10 Essential (primary) hypertension
CPT/HCPCS: 36415; 71260; 74177; 80053; 85025; 93005; 96374; 96375; 99285; J2270; J2405; J7120; Q9967

== ENCOUNTER 2023-05-25 20:59 | Emergency (ER) | payer MEDICAID, SELFPAY ==
[2023-05-25 21:10] VITALS: BP 156/124; PULSE 91; RESP 17; TEMP 36.7; O2SAT 97; BMI 30.7
--- NOTE | 2023-05-25 21:13 | XRR_ITS ---
PROCEDURE INFORMATION: Exam: XR Chest Exam date and time: 05/25/2023 9:22 PM Age: 32 years old Clinical indication: Injury or trauma; Other: Fb; Patient HX: Foreign body in airway; RT chest pain TECHNIQUE: Imaging protocol: Radiologic exam of the chest. Views: 1 view. COMPARISON: CT chest abdpel [id number] 04/25/2023 12:08 PM FINDINGS: Lungs: No focal consolidation. Pleural spaces: No evidence of pneumothorax. No evidence of pleural effusion. Heart/Mediastinum: Cardiomediastinal silhouette is within normal limits. Bones/joints: No evidence of acute osseous abnormality. XR/XR chest 1V portable [id number] IMPRESSION: 1. No acute cardiopulmonary abnormality. 2. No evidence of radiopaque foreign body. If there is ongoing clinical concern, consider correlation with CT.
--- NOTE | 2023-05-25 21:16 | ED_ITS ---
HPI - General Adult General: Chief complaint: Airway/Esophagus Foreign Body Stated complaint: AIRWAY OBSTRUCTION Time Seen by Provider: 05/25/23 21:01 Source: patient and EMS Mode of arrival: EMS Limitations: no limitations History of Present Illness: 32-year-old male states he was eating ch ips roughly an hour and a half ago and states he felt like he has 1 stuck in his throat. He had a coughing fit but states it still feels like it stuck he is able to tolerate his own liquids he denies any shortness of breath he is in no distress here. Associated symptoms: Deny chest pain, dyspnea, headache(s), nausea, rash or vomiting Review of Systems Const: Denies: fever(s), chills, body aches or change in appetite ENMT: Denies: throat pain or dental pain Card: Denies: chest pain Resp: Denies: dyspnea GI: Denies: abdominal pain, nausea, vomiting or diarrhea Musc: Denies: neck pain or back pain Skin/Breast: Denies: rash Neuro: Denies: headache(s) PFSH ED PFSH: Medical History History of seizures Melanoma Rheumatoid arthritis Skin cancer (melanoma) Migraines Hypertension Surgical History History of colonoscopy History of dental surgery History of endoscopy History of foot surgery tendon repair History of hand surgery History of neck surgery removal of cyst Hx of appendectomy Family History Mother Cancer unknown S/P coronary artery stent placement Myocardial infarction Family/Other Cancer Paternal uncle-leukemia Other Bleeding disorder CAD (coronary artery disease) Chronic kidney disease (CKD) Diabetes Hyperlipidemia Hypertension Stroke Social History Smoking and tobacco/nicotine status: current every day tobacco/nicotine user cigarettes Packs smoked per day: 1 [ Other cigarette details: 1-2 ppd tries to stay under 1 ppd ] Second hand smoke exposure: Yes Alcohol intake: current Alcohol intake frequency: few times a month Substance/Drug Use: current Substance/Drug use frequency: daily Lives independently: Yes Marital status: Single Current occupational status: unemployed Special zahida needs: No Agree to transfusion: Yes Physical Exam Const: COMMON NORMALS: no acute distress, patient oriented x3 and healthy appearing HENMT: COMMON NORMALS: normocephalic and atraumatic HEAD & SCALP: normocephalic and atraumatic Eye: COMMON NORMALS: Equal, round and reactive pupils present and EOMs intact bilaterally PUPIL: Yes Equal, round and reactive pupils present Neck/C-Spine: COMMON NORMALS: full ROM and supple Chest: COMMONS NORMALS: normal inspection of the chest and normal palpation of entire chest wall Resp: COMMON NORMALS: normal respiratory effort, No retractions, No use of accessory muscles and clear to auscultation bilaterally AUSCULTATION: clear to auscultation bilaterally Cardio: COMMON NORMALS: regular rate, regular rhythm and No murmurs present (Cardio) RATE: regular rate RHYTHM: regular rhythm GI: COMMON NORMALS: Normal to inspection, nondistended, normoactive bowel sounds present, Soft to palpation, non-tender and no masses PALPATION: Yes Soft to palpation Extremity: COMMON NORMALS: normal to inspection and full ROM Neuro: COMMON NORMALS: patient oriented x3, moves all extremities and no focal motor deficits Psych: COMMON NORMALS: mental status grossly normal, Normal thought process present and cooperative THOUGHT PROCESS: Normal thought process present Skin: COMMON NORMALS: no rashes or lesions noted and no wounds GENERAL SKIN EXAM: no rashes or lesions noted Course Vital Signs: Vital signs: Vital Signs Temperature 98.1 F 05/25/23 21:10 Pulse Rate 91 05/25/23 21:10 Respiratory Rate 17 05/25/23 21:10 Blood Pressure 156/124 05/25/23 21:10 Pulse Oximetry 97 05/25/23 21:10 Oxygen Delivery Me thod Room Air 05/25/23 21:10 [facility] - General Adult Medical Decision Making Patient presents here with food impaction in esophagus is likely passed he feels much improved currently he is able to tolerate liquids without any difficulty has no signs of aspiration on x-ray he is stable for discharge follow-up with PCP return if worsening. Medical Records I reviewed the patient's medical records. Lab Data I reviewed the patient's lab results. XR interpretation done by ED provider, pending radiology final review ED provider radiology interpretation(s): cxr: no acute findings Discharge Plan Discharge Patient Disposition: Home Clinical Impression: Food impaction of esophagus Qualifiers: Encounter type: initial encounter Qualified Code(s): T18.128A - Food in esophagus causing other injury, initial encounter Condition: Stable Prescriptions: No Action dicyclomine 20 mg tablet 20 mg PO BID Qty: 180 2RF albuterol sulfate 90 mcg/actuation HFA aerosol inhaler 2 puff inhalation Q6H PRN (Reason: shortness of breath or wheezing) Qty: 8.5 0RF omeprazole 40 mg capsule,delayed release(DR/EC) 40 mg PO DAILY Levsin 0.125 mg tablet 0.125 mg PO Q6H PRN (Reason: dyspepsia) Qty: 30 0RF Discharge Orders: Discharge ED (Routine); Ordered 05/25/23 Ordered By: Chaka Escobar Referrals: Aaron Mi MD [Primary Care Provider] - 4-7 days Discharge Diet: Advance as tolerated Discharge Activity: Resume usual activity Patient Instructions: Food Impaction (ED) Coding Level of Care Code ED Lifestyle Director for Mirza Fleming
[2023-05-25] MEDS: LORazepam 2 mg/mL INJ 10 mL MDV 1 MG IVP (21:27)
[2023-05-25] MEDS: glucagon 1 mg/mL KIT 1 mL IM (21:31)
[2023-05-25] MEDS: lidocaine 2% viscous 15 ML, aluminum-mag hydrox-simethicon 30 ML, sucralfate oral liq 1 GM PO (21:33)
[2023-05-25 22:19] VITALS: PULSE 72; RESP 18; O2SAT 97
== END 2023-05-25 22:21 | disposition home or self-care (01) ==
PROVIDERS: Emergency Provider Emergency Medicine; PCP Family Medicine
DX: T18.128A Food in esophagus causing other injury, initial encounter (principal); W44.F3XA Food entering into or through a natural orifice, initial encounter; F17.210 Nicotine dependence, cigarettes, uncomplicated; I10 Essential (primary) hypertension
CPT/HCPCS: 71045; 96372; 96374; 99284; J1610; J2060

== ENCOUNTER 2023-07-01 19:36 | Emergency (ER) | payer MEDICAID, SELFPAY ==
[2023-07-01 19:41] VITALS: BP 135/92; PULSE 86; RESP 16; TEMP 36.6; O2SAT 98
--- NOTE | 2023-07-01 20:06 | ECG_ITS ---
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 Measurements Intervals [place] Rate: 83 P: 47 MN: 128 QRS: 56 QRSD: 96 T: 44 QT: 361 QTc: 426 Interpretive Statements SINUS RHYTHM Compared to ECG 04/25/2023 11:13:10 No significant changes Electronically Signed On 07-02-2023 23:48:26 CDT by Noah Barlow M.D. [id number]
[2023-07-01 20:15] LABS: Basophils # 0.1 10^3/uL (0.0-0.1); Basophils % 0.6 %; Eosinophils # 0.1 10^3/uL (0.0-0.8); Eosinophils % 1.1 %; Hematocrit 48.9 % (37-53); Lymphocytes # 2.4 10^3/uL (0.8-4.8); Lymphocytes % 21.9 %; Mean Corpuscular Hemoglobin 30.7 pg (27-33); Mean Corpuscular Volume 87.8 fl (82-101); Mean Platelet Volume 10.8 fL (7.4-10.4); Monocytes # 0.7 10^3/uL (0.2-0.9); Neutrophils % 69.9 %; Nucleated Red Blood Cells % 0 %; Platelet Count 294 10^3/cmm (157-399); Red Blood Count 5.57 10^6/uL (3.85-5.65); Red Cell Distribution Width 12.8 % (12.1-15.1); White Blood Count 10.87 10^3/uL (3.29-11.43)
--- NOTE | 2023-07-01 20:16 | ED_ITS ---
HPI - General Adult 2 General: Chief complaint: General Medical Stated complaint: Dizzy\Feels Bad Time Seen by Provider: 07/01/23 19:57 History of Present Illness: 32-year-old male presents to the emergen cy department stating that he feels like his body is going hot and then cold. He states that he has generalized pain and muscle aches all over his body and is unable to narrow his pain complaints. He complains of generalized pain to his abdomen and chest back lungs teeth and gums as well as generalized pain everywhere. He has recently been seen by pain management physician. He is also been seen by cardiology. Patient states that the cardiology medical provider witnessed the patient's hands turning from a normal color to a blue color than white color than red color and states that he has Raynaud's disease. Patient states he has been following his physicians doing what they have requested but states that he feels like he is having continued difficulties although he has been unable to provide specific instances of his difficulties. He states that he would like to be checked for all types of cancer. He states that he is from [place] and feels that people talk about him in a negative manner because he is from [place]. He states he has multiple friends that are veterans' counselor and medical doctors that are available for him at any time and that can overlook all of his medical care. He states that he has been evaluated by multiple physicians and he keeps being told that they can find nothing wrong and he states that he knows he has medical problems. Associated symptoms: Reports chest pain, dyspnea and headache(s) Review of Systems 2 General: Reports: 10 or more systems reviewed and unremarkable except in HPI and below ENMT: Reports: mouth pain and dental pain Card: Reports: chest pain Resp: Reports: dyspnea GI: Reports: abdominal pain Neuro: Reports: headache(s) PFSH ED 2 PFSH: Medical History History of seizures Melanoma Rheumatoid arthritis Skin cancer (melanoma) Migraines Hypertension Surgical History History of dental surgery History of neck surgery removal of cyst History of hand surgery History of foot surgery tendon repair History of colonoscopy History of endoscopy Hx of appendectomy Family History Mother Cancer unknown S/P coronary artery stent placement Myocardial infarction Family/Other Cancer Paternal uncle-leukemia Other Bleeding disorder CAD (coronary artery disease) Chronic kidney disease (CKD) Diabetes Hyperlipidemia Hypertension Stroke Social History Smoking and tobacco/nicotine status: current every day tobacco/nicotine user cigarettes Packs smoked per day: 1 [ Other cigarette details: 1-2 ppd tries to stay under 1 ppd ] Second hand smoke exposure: Yes Alcohol intake: current Alcohol intake frequency: few times a month Substance/Drug Use: current Substance/Drug use frequency: daily Lives independently: Yes Marital status: Single Current occupational status: unemployed Special zahida needs: No Agree to transfusion: Yes Physical Exam 2 Narrative: EXAM NARRATIVE: Constitutional: the patient appears well nourished and with normal development. Vital signs reviewed as documented. HENMT: Normocephalic, atraumatic. External ears normal appearance without drainage. Nose without drainage, normal appearance. Mucus membranes moist. Neck is supple, No jugular venous distension, trachea is midline, no appreciable carotid bruits. No lymphadenopathy. No meningeal signs. Flexion, extension and lateral rotation is without pain. Eyes: Pupils are equal, round, reactive to light and accommodation. No scleral icterus. Extra-ocular movement are intact. Thorax is symmetrical and with equal rise and fall with respirations. Resp: Lungs are clear to auscultation. No wheezes, rales, crackles or ronchi at present. Cardio: Regular rate and rhythm. Positive S1, S2. No appreciable murmurs, rubs or gallops. GI: Abdominal exam reveals normal bowel sounds to all quadrants. No organomegaly. No obvious palpable masses noted. No hepatomegally appreciated. Soft, non-tender to palpation. Extremity: Extremities are non-edematous and both femoral and pedal pulses are 2+ and equal bilaterally. Moves all extremities well, sensation in all extremities. Neuro: Alert and oriented x4, person, place, time and situation. Cranial nerves II through XII are grossly intact, there is no focal neurological deficits that I can appreciate at present. Sensation intact to all extremities. 2-point discrimination intact. Light touch intact to all extremities. Motor strength in the upper and lower extremities are equal and bilateral 5/5. Psych: Patient with tangential thinking and flight of ideas. He does appear to be very preoccupied with multiple medical conditions. Skin: No lesions, rashes. No gross abnormalities noted. Back: Symmetrical, no obvious deformity, No CVA tenderness Course 2 Vital Signs: Vital signs: Vital Signs Temperature 97.9 F 07/01/23 19:41 Pulse Rate 87 07/01/23 22:35 Respiratory Rate 16 07/01/23 19:41 Blood Pressure 145/88 07/01/23 22:35 Pulse Oximetry 98 07/01/23 22:35 Oxygen Delivery Me thod Room Air 07/01/23 22:00 MDM - General Adult Medical Decision Making Physical exam completed and documented I did obtain a CBC CMP urine drug screen EKG and reviewed the patient's previous medical records. The patient's laboratory evaluation today is essentially unremarkable. It does appear that he has been seen by cardiology and pain management recently. I reviewed their documentation and have discussed with the patient the need for follow-up with a primary care provider. Differential Diagnosis Anxiety, fictitious disorder, somatizations disorder, anxiety, electrolyte abnormality, Medical Records I reviewed the patient's medical records. Lab Data I reviewed the patient's lab results. 07/01/23 20:07 07/01/23 20:40 Radiology Impressions Chest X-Ray 07/01/23 21:09 IMPRESSION: No acute findings. Laboratory Results WBC 10.87 10^3/uL (3.29-11.43) 07/01/23 20:07 RBC 5.57 10^6/uL (3.85-5.65) 07/01/23 20:07 Hgb 17.10 g/dL (11.27-16.99) H 07/01/23 20:07 Hct 48.9 % (37-53) 07/01/23 20:07 MCV 87.8 fl (82-101) 07/01/23 20:07 MCH 30.7 pg (27-33) 07/01/23 20:07 MCHC 35.0 g/dL (30-55) 07/01/23 20:07 RDW 12.8 % (12.1-15.1) 07/01/23 20:07 Plt Count 294 10^3/cmm (157-399) 07/01/23 20:07 MPV 10.8 fL (7.4-10.4) H 07/01/23 20:07 Neut % (Auto) 69.9 % 07/01/23 20:07 Lymph % (Auto) 21.9 % 07/01/23 20:07 [place] % (Auto) 6.0 % 07/01/23 20:07 Eos % (Auto) 1.1 % 07/01/23 20:07 Baso % (Auto) 0.6 % 07/01/23 20:07 Neut # (Auto) 7.60 10^3/uL (1.8-7.7) 07/01/23 20:07 Lymph # (Auto) 2.4 10^3/uL (0.8-4.8) 07/01/23 20:07 [place]ancock # (Auto) 0.7 10^3/uL (0.2-0.9) 07/01/23 20:07 Eos # (Auto) 0.1 10^3/uL (0.0-0.8) 07/01/23 20:07 Baso # (Auto) 0.1 10^3/uL (0.0-0.1) 07/01/23 20:07 Nucleated RBC % (auto) 0 % 07/01/23 20:07 Nucleated RBCs # 0.0 /100WBC 07/01/23 20:07 Sodium 141 mmol/L (136-145) 07/01/23 20:40 Potassium 3.7 mmol/L (3.5-5.1) 07/01/23 20:40 Chloride 102 mmol/L (98-107) 07/01/23 20:40 Carbon Dioxide 26 mmol/L (22-29) 07/01/23 20:40 Anion Gap 16.7 (5-19) 07/01/23 20:40 BUN 13 mg/dL (6-20) 07/01/23 20:40 Creatinine 0.8 mg/dL (0.7-1.2) 07/01/23 20:40 GFR Calculation 112.0 mL/min (90-130) 07/01/23 20:40 Glucose 106 mg/dL (65-115) 07/01/23 20:40 Calculated Osmolality 293 mOsm/kg (285-295) 07/01/23 20:40 Calcium 9.5 mg/dL (8.5-10.5) 07/01/23 20:40 Total Bilirubin 0.3 mg/dL (0.15-1.2) 07/01/23 20:40 AST 17 U/L (0-40) 07/01/23 20:40 ALT 13 U/L (0-41) 07/01/23 20:40 Alkaline Phosphatase 108 U/L (40-130) 07/01/23 20:40 Total Protein 6.9 g/dL (6.6-8.7) 07/01/23 20:40 Albumin 4.4 g/dL (3.5-5.2) 07/01/23 20:40 Globulin 2.5 g/dL (1.3-4.6) 07/01/23 20:40 Urine Color Yellow (Yellow) 07/01/23 20:30 Urine Appearance Clear (CLEAR) 07/01/23 20:30 Urine pH 6 (5-7) 07/01/23 20:30 Ur Specific [place] 1.015 (1.005-1.030) 07/01/23 20:30 Urine Protein Neg (Negative) 07/01/23 20:30 Urine Glucose (UA) Norm (Normal) 07/01/23 20:30 Urine Ketones Negative (Negative) 07/01/23 20:30 Urine Blood Neg (Negative) 07/01/23 20:30 Urine Nitrate Negative (Negative) 07/01/23 20:30 Urine Bilirubin Neg (Negative) 07/01/23 20:30 Urine Urobilinogen Neg mg/dL (Negative) 07/01/23 20:30 Ur Leukocyte Esterase Negative (Negative) 07/01/23 20:30 Urine Opiates Screen Negative ng/mL (Negative) 07/01/23 20:30 Ur Barbiturates Screen Negative ng/mL (Negative) 07/01/23 20:30 Ur Phencyclidine Scrn Negative ng/mL (Negative) 07/01/23 20:30 Ur Amphetamines Screen Negative ng/mL (Negative) 07/01/23 20:30 U Benzodiazepines Scrn Negative ng/mL (Negative) 07/01/23 20:30 Urine Cocaine Screen Negative ng/mL (Negative) 07/01/23 20:30 U Marijuana (THC) Screen Negative ng/mL (Negative) 07/01/23 20:30 All radiology interpretation(s) finalized by discharge EKG Data EKG 1: Interpretation: Twelve-lead EKG obtained at 2005 and reviewed at 2009 demonstrates sinus rhythm with a ventricular rate of 83 bpm, NE interval 128, QRS duration 96, QT 361, QTc 401. There is no ST elevation or depression at present to demonstrate acute ischemia or infarction. Computer generated interpretation: Chest X-Ray 07/01/23 21:09 IMPRESSION: No acute findings. Discharge Plan Discharge Patient Disposition: Home Clinical Impression: Myalgia Condition: Stable Prescriptions: No Action dicyclomine 20 mg tablet 20 mg PO BID Qty: 180 2RF albuterol sulfate 90 mcg/actuation HFA aerosol inhaler 2 puff inhalation Q6H PRN (Reason: shortness of breath or wheezing) Qty: 8.5 0RF omeprazole 40 mg capsule,delayed release(DR/EC) 40 mg PO DAILY Levsin 0.125 mg tablet 0.125 mg PO Q6H PRN (Reason: dyspepsia) Qty: 30 0RF Discharge Orders: Discharge ED (Routine); Ordered 07/01/23 Ordered By: Rodolfo Asif Discharge Diet: Usual diet Discharge Activity: Resume usual activity Patient Instructions: Opioid Safety, Pain Management Activity Restrictions/Additional Instructions: Activity Restrictions/Additional Instructions: Thank you for choosing [facility] for your healthcare needs today. Please realize that you were seen in the Emergency Department and that we are providing you with an emergency medical screening exam and this may not be a complete and all inclusive of all the testing and or medical work-up that you may need to determine your ailment or severity of your illness. It is very important that you follow-up as instructed with your Primary care provider or Specialist for additional evaluation and to discuss your medical treatment plan. Coding Level of Care Code ED Combat Control Manager for Mirza Fleming
[2023-07-01 20:37] LABS: Add Urine Microscopic? NO; Charge for UA Resulting for Rev
[2023-07-01 20:41] LABS: Bilirubin Urine Neg (Negative); Blood Urine Neg (Negative); Glucose Urine UA Norm (Normal); Ketones Urine Negative (Negative); Leukocyte Esterase Urine Negative (Negative); Nitrate Urine Negative (Negative); Protein Urine Neg (Negative); Specific Gravity, Urine 1.015 (1.005-1.030); Urine Appearance Clear (CLEAR); Urine Color Yellow (Yellow); Urobilinogen Urine Neg (Negative); pH Urine 6 (5-7)
[2023-07-01 20:47] LABS: Amphetamines Screen Urine Negative (Negative); Barbiturates Screen Urine Negative (Negative); Benzodiazepines Screen Urine Negative (Negative); Cocaine Screen Urine Negative (Negative); Opiate Screen Urine Negative (Negative); PCP Screen Urine Negative (Negative); THC Screen Urine Negative (Negative)
[2023-07-01 21:00] VITALS: BP 138/91; PULSE 85; O2SAT 97
[2023-07-01 21:03] LABS: Alanine Aminotransferase 13 U/L (0-41); Albumin Level 4.4 g/dL (3.5-5.2); Alkaline Phosphatase 108 U/L (40-130); Anion Gap 16.7 (5-19); Aspartate Amino Transferase 17 U/L (0-40); Calcium 9.5 mg/dL (8.5-10.5); Carbon Dioxide 26 mmol/L (22-29); Chloride 102 mmol/L (98-107); Globulin 2.5 g/dL (1.3-4.6); Glucose 106 mg/dL (65-115); Potassium 3.7 mmol/L (3.5-5.1); Sodium 141 mmol/L (136-145); Total Bilirubin 0.3 mg/dL (0.15-1.2); Total Protein 6.9 g/dL (6.6-8.7)
--- NOTE | 2023-07-01 21:09 | XRR_ITS ---
PROCEDURE INFORMATION: Exam: XR Chest Exam date and time: 07/01/2023 9:15 PM Age: 32 years old Clinical indication: Dyspnea TECHNIQUE: Imaging protocol: Radiologic exam of the chest. Views: 2 views. COMPARISON: CR (CHEST, ) 05/25/2023 9:22 PM FINDINGS: Lungs: Unremarkable. No consolidation. Pleural spaces: Unremarkable. No pleural effusion. No pneumothorax. Heart/Mediastinum: Unremarkable. No cardiomegaly. Bones/joints: Unremarkable. XR/XR chest 2V* [id number] IMPRESSION: No acute findings.
[2023-07-01 21:22] LABS: Blood Urea Nitrogen 13 mg/dL (6-20); Osmolality Calculated 293 mOsm/kg (285-295)
[2023-07-01 22:00] VITALS: BP 151/96; PULSE 85; O2SAT 99
[2023-07-01 22:35] VITALS: BP 145/88; PULSE 87; O2SAT 98
== END 2023-07-01 22:45 | disposition home or self-care (01) ==
PROVIDERS: Emergency Provider Internal Medicine
DX: M79.10 Myalgia, unspecified site (principal); F17.210 Nicotine dependence, cigarettes, uncomplicated; I10 Essential (primary) hypertension
CPT/HCPCS: 36415; 71046; 80053; 80306; 81003; 85025; 93005; 99285

== ENCOUNTER → 2023-10-19 15:35 | Outpatient (BNVA) | payer MEDICAID, SELFPAY | PROVIDERS: Visit Provider Emergency Medicine | DX: J02.9 Acute pharyngitis, unspecified (principal) | CPT/HCPCS: 87071; 87880 ==

== ENCOUNTER 2023-11-05 14:46 | Emergency (ER) | payer MEDICAID, SELFPAY ==
[2023-11-05 14:49] VITALS: BP 146/73; PULSE 65; RESP 16; TEMP 36.6; O2SAT 99; BMI 22.7
--- NOTE | 2023-11-05 14:51 | XR_ITS ---
WS: [id number] Portable AP upright chest, 11/05/2023 Clinical Data: dyspnea/cough Comparison: Portable chest, 07/01/2023. Findings: No nodules, masses or effusions are seen. The heart is normal. The pulmonary vascularity is not increased. No pneumonia or pneumothorax is seen. XR/XR chest 1V portable [id number] Impression: Negative chest.
--- NOTE | 2023-11-05 14:52 | ECG_ITS ---
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 Measurements Intervals [place] Rate: 61 P: 56 NM: 149 QRS: 63 QRSD: 101 T: 58 QT: 438 QTc: 442 Interpretive Statements SINUS RHYTHM Compared to ECG 07/01/2023 20:06:12 No significant changes Electronically Signed On 11-05-2023 17:13:14 CDT by Alban Huffman M.D. [id number]
--- NOTE | 2023-11-05 15:01 | W.ED.CHESTPA ---
HPI - Chest Pain General: Chief Complaint: Chest Pain Stated Complaint: Chest Pain Time Seen by Provider: 11/05/23 14:49 History of Present Illness: 32-year-old male presents emergency room with complaint of respiratory symptoms describing some chest pain moderately productive cough. Chest pain is on the left side radiates up into his left jaw and shoulder. He has no known cardiac history no known history of arrhythmias no previous DVT or PE. Other household members have been ill as well. He has not noticed anything that exacerbates or relieves his symptoms. Onset (ago): week(s) Associated symptoms: Reports dyspnea; Deny abdominal pain or fever(s) Review of Systems Const: Denies: fever(s) or chills Card: Denies: chest pain Resp: Reports: dyspnea GI: Denies: abdominal pain : Denies: dysuria, urinary frequency or urinary urgency Musc: Denies: neck pain or back pain Skin/Breast: Denies: rash PFSH ED PFSH: Medical History Dental infection History of seizures Melanoma Rheumatoid arthritis Skin cancer (melanoma) Migraines Hypertension Surgical History History of dental surgery History of neck surgery removal of cyst History of hand surgery History of foot surgery tendon repair History of colonoscopy History of endoscopy Hx of appendectomy Family History Mother Cancer unknown S/P coronary artery stent placement Myocardial infarction Family/Other Cancer Paternal uncle-leukemia Other Bleeding disorder CAD (coronary artery disease) Chronic kidney disease (CKD) Diabetes Hyperlipidemia Hypertension Stroke Social History Smoking and tobacco/nicotine status: current every day tobacco/nicotine user cigarettes Packs smoked per day: 1 Years cigarettes smoked: 20 [ Other cigarette details: 1-2 ppd tries to stay under 1 ppd ] Second hand smoke exposure: Yes Alcohol intake: current Alcohol intake frequency: few times a month Substance/Drug Use: current Substance/Drug use frequency: daily Lives independently: Yes Marital status: Single Current occupational status: unemployed Special zahida needs: No Agree to transfusion: Yes Physical Exam Const: GENERAL APPEARANCE: cooperative ORIENTATION/CONSCIOUSNESS: Yes awake, Yes oriented to person, Yes oriented to place and Yes oriented to time HENMT: COMMON NORMALS: normocephalic, atraumatic and hearing grossly normal bilaterally HEAD & SCALP: normocephalic and atraumatic Resp: COMMON NORMALS: normal respiratory effort, No retractions, No use of accessory muscles and clear to auscultation bilaterally AUSCULTATION: clear to auscultation bilaterally Cardio: COMMON NORMALS: regular rate, regular rhythm and No murmurs present (Cardio) RATE: regular rate RHYTHM: regular rhythm GI: COMMON NORMALS: Soft to palpation and No hepatosplenomegaly present AUSCULTATION: Yes normoactive bowel sounds PALPATION: Yes Soft to palpation, No Tenderness to palpation present (GI), No Guarding due to palpation present (GI) and Yes No hepatosplenomegaly present Extremity: COMMON NORMALS: normal to inspection, capillary refill normal, no clubbing, cyanosis or edema, no calf tenderness and no pedal edema Neuro: SENSORIUM/ORIENTATION: Yes oriented to person, Yes oriented to place and Yes oriented to time Skin: COMMON NORMALS: no rashes or lesions noted GENERAL SKIN EXAM: no rashes or lesions noted Course Vital Signs: Vital signs: Vital Signs Temperature 97.9 F 11/05/23 14:49 Pulse Rate 59 L 11/05/23 16:52 Respiratory Rate 21 H 11/05/23 16:22 Blood Pressure 122/73 11/05/23 15:52 Pulse Oximetry 97 11/05/23 16:52 Oxygen Delivery Me thod Room Air 11/05/23 15:31 MDM - Chest Pain Medical Decision Making Evaluation of chest pain no sign of pneumothorax aortic dissection PE pneumonia or acute coronary syndrome suspect his symptoms are mostly pleuritic in nature. Will start him on a prednisone taper also given diclofenac and tramadol to use for pain if has any worsening or change symptoms she should return to the emergency room Medical Records I reviewed the patient's medical records. Lab Data I reviewed the patient's lab results. 11/05/23 14:59 11/05/23 14:59 Radiology Impressions Chest X-Ray 11/05/23 14:51 Impression: Negative chest. Laboratory Results WBC 7.19 10^3/uL (3.29-11.43) 11/05/23 14:59 RBC 5.65 10^6/uL (3.85-5.65) 11/05/23 14:59 Hgb 17.30 g/dL (11.27-16.99) H 11/05/23 14:59 Hct 49.3 % (37-53) 11/05/23 14:59 MCV 87.3 fl (82-101) 11/05/23 14:59 MCH 30.6 pg (27-33) 11/05/23 14:59 MCHC 35.1 g/dL (30-55) 11/05/23 14:59 RDW 12.2 % (12.1-15.1) 11/05/23 14:59 Plt Count 284 10^3/cmm (157-399) 11/05/23 14:59 MPV 11.0 fL (7.4-10.4) H 11/05/23 14:59 Neut % (Auto) 67.8 % 11/05/23 14:59 Lymph % (Auto) 24.1 % 11/05/23 14:59 Charles % (Auto) 7.4 % 11/05/23 14:59 Eos % (Auto) 0.1 % 11/05/23 14:59 Baso % (Auto) 0.3 % 11/05/23 14:59 Neut # (Auto) 4.88 10^3/uL (1.8-7.7) 11/05/23 14:59 Lymph # (Auto) 1.7 10^3/uL (0.8-4.8) 11/05/23 14:59 Charles # (Auto) 0.5 10^3/uL (0.2-0.9) 11/05/23 14:59 Eos # (Auto) 0.0 10^3/uL (0.0-0.8) 11/05/23 14:59 Baso # (Auto) 0.0 10^3/uL (0.0-0.1) 11/05/23 14:59 Nucleated RBC % (auto) 0 % 11/05/23 14:59 Nucleated RBCs # 0.0 /100WBC 11/05/23 14:59 D-Dimer 0.31 ug/mLFEU (0-0.59) 11/05/23 14:59 Sodium 140 mmol/L (136-145) 11/05/23 14:59 Potassium 4.6 mmol/L (3.5-5.1) 11/05/23 14:59 Chloride 102 mmol/L (98-107) 11/05/23 14:59 Carbon Dioxide 23 mmol/L (22-29) 11/05/23 14:59 Anion Gap 19.6 (5-19) H 11/05/23 14:59 BUN 12 mg/dL (6-20) 11/05/23 14:59 Creatinine 0.8 mg/dL (0.7-1.2) 11/05/23 14:59 GFR Calculation 112.0 mL/min (90-130) 11/05/23 14:59 Glucose 87 mg/dL (65-115) 11/05/23 14:59 Calculated Osmolality 289 mOsm/kg (285-295) 11/05/23 14:59 Calcium 9.7 mg/dL (8.5-10.5) 11/05/23 14:59 Total Bilirubin 0.6 mg/dL (0.15-1.2) 11/05/23 14:59 AST 22 U/L (0-40) 11/05/23 14:59 ALT 18 U/L (0-41) 11/05/23 14:59 Alkaline Phosphatase 142 U/L (40-130) H 11/05/23 14:59 Troponin T Baseline < 6 ng/L (0-15) 11/05/23 14:59 Troponin T 120 Minute 6.96 ng/L (0-15) 11/05/23 16:47 Delta Troponin T 0.81686 ABS# (0-10) 11/05/23 16:47 Total Protein 7.5 g/dL (6.6-8.7) 11/05/23 14:59 Albumin 5.0 g/dL (3.5-5.2) 11/05/23 14:59 Globulin 2.5 g/dL (1.3-4.6) 11/05/23 14:59 All radiology interpretation(s) finalized by discharge Discharge Plan Discharge Patient Disposition: Home Clinical Impression: Pleuritic chest pain Condition: Stable Prescriptions: New diclofenac sodium 75 mg tablet,delayed release (DR/EC) 75 mg PO Q12H PRN (Reason: pain) Qty: 20 0RF Medrol (Danish) 4 mg tablets,dose pack See Rx Instructions .ROUTE .COMPLEX Qty: 21 0RF Rx Instructions: orally per package directions tramadol 50 mg tablet 50 mg PO Q6H PRN (Reason: pain) Qty: 10 0RF albuterol sulfate 90 mcg/actuation HFA aerosol inhaler 2 inh INHALATION Q4H PRN (Reason: shortness of breath or wheezing) Qty: 18 0RF No Action amlodipine 5 mg tablet 5 mg PO DAILY dicyclomine 20 mg tablet 20 mg PO BID Qty: 180 2RF cetirizine [Zyrtec] 10 mg tablet 10 mg PO DAILY PRN (Reason: allergy symptoms) Qty: 30 0RF hydrochlorothiazide 12.5 mg tablet 12.5 mg PO DAILY Rx Instructions: 1 tab a daily amoxicillin-pot clavulanate 875-125 mg tablet 1 tab PO Q12H 10 Days Qty: 20 0RF albuterol sulfate 90 mcg/actuation HFA aerosol inhaler 2 puff inhalation Q6H PRN (Reason: shortness of breath or wheezing) Qty: 8.5 0RF omeprazole 40 mg capsule,delayed release(DR/EC) 40 mg PO DAILY Discharge Orders: Discharge ED (Routine); Ordered 11/05/23 Ordered By: Anirudh Guerrero Discharge Diet: Usual diet Discharge Activity: Increase activity as tolerated Patient Instructions: Pleurisy (ED), Opioid Safety, Pain Management Activity Restrictions/Additional Instructions: Thank you for choosing [facility] for your healthcare needs today. It is very important that you follow up as instructed or that you return to the Emergency Department should you have concerns or if your condition changes or worsens in any way. Your evaluated today for complaint of chest pain. EKG does not show any acute changes your cardiac enzymes all appear normal. Chest x-ray was normal and there is no sign of pneumonia pneumothorax or widened mediastinum and no sign of any aortic dissections. Screening test for pulmonary emboli was also negative. Suspect based on the character your pain this is from irritation of the lining of the lung will recommend that you start on a steroid taper gave you pain medications and anti-inflammatories to use for the next several days if symptoms worsen or change return to the emergency room. Coding Level of Care Code ED List Of First Job Ideas for Mirza Fleming
[2023-11-05 15:14] LABS: Basophils % 0.3 %; Eosinophils % 0.1 %; Hematocrit 49.3 % (37-53); Lymphocytes # 1.7 10^3/uL (0.8-4.8); Lymphocytes % 24.1 %; Mean Corpuscular HGB Conc 35.1 g/dL (30-55); Mean Corpuscular Hemoglobin 30.6 pg (27-33); Mean Corpuscular Volume 87.3 fl (82-101); Monocytes # 0.5 10^3/uL (0.2-0.9); Monocytes % 7.4 %; Neutrophils # 4.88 10^3/uL (1.8-7.7); Neutrophils % 67.8 %; Nucleated Red Blood Cells % 0 %; Platelet Count 284 10^3/cmm (157-399); Red Blood Count 5.65 10^6/uL (3.85-5.65); Red Cell Distribution Width 12.2 % (12.1-15.1); White Blood Count 7.19 10^3/uL (3.29-11.43)
[2023-11-05 15:22] VITALS: BP 136/77; PULSE 60; RESP 17; O2SAT 99
[2023-11-05] MEDS: ipratropium-albuterol 3 mL Neb INHALATION (15:28)
[2023-11-05] MEDS: sodium chloride 0.9% 1,000 ML 999 ML IV (15:29)
[2023-11-05] MEDS: dexamethasone 10 mg/mL INJ IM (15:30)
[2023-11-05 15:31] VITALS: PULSE 53; RESP 16; O2SAT 100
[2023-11-05 15:45] LABS: Alanine Aminotransferase 18 U/L (0-41); Alkaline Phosphatase 142 U/L (40-130); Anion Gap 19.6 (5-19); Aspartate Amino Transferase 22 U/L (0-40); Blood Urea Nitrogen 12 mg/dL (6-20); Calcium 9.7 mg/dL (8.5-10.5); Carbon Dioxide 23 mmol/L (22-29); Chloride 102 mmol/L (98-107); Creatinine Clr Calc Pharmacy 140.1645; Globulin 2.5 g/dL (1.3-4.6); Glucose 87 mg/dL (65-115); Osmolality Calculated 289 mOsm/kg (285-295); Potassium 4.6 mmol/L (3.5-5.1); Sodium 140 mmol/L (136-145); Total Bilirubin 0.6 mg/dL (0.15-1.2); Total Protein 7.5 g/dL (6.6-8.7)
[2023-11-05 15:47] LABS: Troponin(5th) Baseline < 6 ng/L (0-15)
[2023-11-05 15:52] VITALS: BP 122/73; PULSE 52; RESP 21; O2SAT 98
[2023-11-05 16:22] VITALS: PULSE 68; RESP 21; O2SAT 98
[2023-11-05 16:52] VITALS: PULSE 59; O2SAT 97
--- NOTE | 2023-11-05 16:52 | ECG_ITS ---
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 Measurements Intervals [place] Rate: 53 P: 55 TX: 153 QRS: 55 QRSD: 92 T: 69 QT: 450 QTc: 425 Interpretive Statements SINUS BRADYCARDIA Compared to ECG 11/05/2023 14:52:45 Sinus rhythm no longer present Electronically Signed On 11-05-2023 17:15:40 CDT by Alban Huffman M.D. [id number]
[2023-11-05 17:13] LABS: D Dimer 0.31 ug/mLFEU (0-0.59)
[2023-11-05 17:17] LABS: Troponin 5 2HR 6.96 ng/L (0-15); Troponin 5 2HR Delta 0.96001 ABS# (0-10)
[2023-11-05 17:41] LABS: Adenovirus Not Detected (NOT DETECT); Chlamydia Pneumoniae Not Detected (NOT DETECT); Coronavirus 229E,HKU1,NL63,OC4 Not Detected (NOT DETECT); Human Metapneumovirus Not Detected (NOT DETECT); Human Rhinovirus/Enterovirus Not Detected (NOT DETECT); Influenza A Not Detected (NOT DETECT); Influenza A H1 Not Detected (NOT DETECT); Influenza A H1-2009 Not Detected (NOT DETECT); Influenza A H3 Not Detected (NOT DETECT); Influenza B Not Detected (NOT DETECT); Mycoplasma Pneumoniae Not Detected (NOT DETECT); Parainfluenza Virus Type 1 Not Detected (NOT DETECT); Parainfluenza Virus Type 2 Not Detected (NOT DETECT); Parainfluenza Virus Type 3 Not Detected (NOT DETECT); Parainfluenza Virus Type 4 Not Detected (NOT DETECT); Respiratory Syncytial Virus A Not Detected (NOT DETECT); Respiratory Syncytial Virus B Not Detected (NOT DETECT)
[2023-11-05 18:07] LABS: SARS-COV-2 Detected (NOT DETECT)
== END 2023-11-05 18:04 | disposition home or self-care (01) ==
PROVIDERS: Emergency Provider Family Medicine
DX: R09.1 Pleurisy (principal); F17.210 Nicotine dependence, cigarettes, uncomplicated; I10 Essential (primary) hypertension
CPT/HCPCS: 36415; 71045; 80053; 84484; 85025; 85378; 87486; 87581; 87633; 93005; 94640; 96372; 99285; J1100; J7030

== ENCOUNTER 2024-02-27 08:10 | Outpatient (CLI) | payer MEDICAID, SELFPAY ==
--- NOTE | 2024-02-27 08:16 | CT_ITS ---
WS: [id number] CT NECK TECHNIQUE: Contrast-enhanced CT of the neck with coronal and sagittal reformatted images. CLINICAL INFORMATION: PERSONAL HX OF MALIGNANT MELANOMA OF SKIN COMPARISON: None. DLP: 301.[address] scans at [facility] use at least one of these dose optimization techniques: automated e xposure control; mA and/or kV adjustment per patient size (includes targeted exams where dose is matc hed to clinical indication); or iterative reconstruction. FINDINGS: Mastoid air cells are well aerated. Paranasal sinuses are well aerated. Normal posterior nasopharynx. Normal parapharyngeal fat. Normal posterior nasopharynx. Parotid glands are normal. Submandibular gl ands are normal. Few tiny thyroid nodules largest on the LEFT measuring 6 mm. Normal [place] tonsils. No evidence supraglottic or glottic mass. Tiny nodule RIGHT lung apex measur ing 3 mm. Tiny subpleural nodule LEFT upper lobe. A few small micronodules few prominent upper cervic al chain and jugulodigastric lymph nodes measuring up to 10 mm largest on the RIGHT likely reactive. No other suspicious findings. CT/CT neck w con* [id number] IMPRESSION: 1. Normal salivary glands. A few prominent jugulodigastric and upper cervical chain cervical lymph nodes likely reactive. Largest on the RIGHT measuring 10 m m in short axis dimension. 2. No evidence of supraglottic or glottic mass. 3. A few subcentimeter nodules in the lung apices. 4. A few subcentimeter thyroid nodules. This can be followed up with thyroid u ltrasound.
--- NOTE | 2024-02-27 08:16 | CT_ITS ---
WS: [id number] CT CHEST TECHNIQUE: Contrast enhanced CT of the chest with coronal and sagittal reformatted images. CLINICAL INFORMATION: PERSONAL HX OF MALIGNANT MELANOMA OF SKIN COMPARISON: None. DLP: 354.[address] scans at [facility] use at least one of these dose optimization techniques: automated e xposure control; mA and/or kV adjustment per patient size (includes targeted exams where dose is matc hed to clinical indication); or iterative reconstruction. FINDINGS: A few tiny subpleural nodules in the lung apices mainly subpleural in location. Largest measuring 3 m m. Lungs are well aerated. No acute pulmonary infiltrates. No mediastinal or hilar lymphadenopathy. N o axillary lymphadenopathy. Slight ectatic ascending thoracic aorta measuring 3.6 cm. Normal caliber descending thoracic aorta. A few tiny thyroid nodules. Adrenal glands are normal. Celiac and SMA are patent in the upper abdomen. Mild thoracic curve. No ot her acute findings. CT/CT chest w con* [id number] IMPRESSION: 1. A few tiny nodules in the lung apices measuring 2 to 3 mm mainly subpleural in location. No other suspicious pulmonary parenchymal opacities. 2. Slightly ectatic ascending thoracic aorta measuring 3.6 cm unchanged compar ed to 04/25/2023. 3. A few tiny thyroid nodules. This could followed up with thyroid ultrasound. 4. No mediastinal or hilar lymphadenopathy. No axillary lymphadenopathy.
[2024-02-27] MEDS: iohexol 350 mg/mL 500 mL Btl (per mL) IV ×2 (08:43→08:44)
== END 2024-02-27 08:11 | disposition home or self-care (01) ==
LOC: RAD 08:12
PROVIDERS: Visit Provider Dermatology
DX: Z85.820 Personal history of malignant melanoma of skin (principal); R91.8 Other nonspecific abnormal finding of lung field; E04.2 Nontoxic multinodular goiter
CPT/HCPCS: 70491; 71260

== ENCOUNTER 2024-03-06 02:04 | Emergency (ER) | payer MEDICAID, SELFPAY ==
[2024-03-06 02:25] VITALS: BP 135/104; PULSE 84; RESP 20; TEMP 37.1; O2SAT 98; BMI 25.1
--- NOTE | 2024-03-06 03:29 | W.ED.DENTAL ---
HPI - Dental/Oral General: Chief complaint: Dental/Oral Stated complaint: left side mouth pain Time Seen by Provider: 03/06/24 03:11 History of Present Illness: 33-year-old male with left upper and lower jaw pain for the past 24 hours or so. He has had 2 problems before. He states that he has not been able to get to the dentist due to financial constraints. He took tramadol at home as well as acetaminophen without improvement. He has been on Bactrim for a right forearm infection. Related Data Home Medications Medication Instructions Recorded Confirmed omeprazole 40 mg capsule,delayed 40 mg PO DAILY 04/25/23 02/27/24 release amlodipine 5 mg tablet 5 mg PO DAILY 07/26/23 02/27/24 hydrochlorothiazide 12.5 mg tablet 12.5 mg PO DAILY 08/01/23 02/27/24 Previous Rx's Medication Instructions Recorded dicyclomine 20 mg tablet 20 mg PO BID #180 tabs 09/20/22 albuterol sulfate 90 mcg/actuation 2 puff inhalation Q6H PRN 11/15/22 aerosol inhaler shortness of breath or wheezing #8.5 grams cetirizine 10 mg tablet (Zyrtec) 10 mg PO DAILY PRN allergy 07/04/23 symptoms #30 tabs amoxicillin 875 mg-potassium 1 tab PO Q12H 10 days #20 tabs 10/19/23 clavulanate 125 mg tablet albuterol sulfate 90 mcg/actuation 2 inh inhalation Q4H PRN shortness 11/05/23 aerosol inhaler of breath or wheezing #18 grams diclofenac sodium 75 mg 75 mg PO Q12H PRN pain #20 tabs 11/05/23 tablet,delayed release mupirocin 2 % topical ointment 1 applic topical BID #22 grams 02/27/24 sulfamethoxazole 800 1 tab PO BID 10 days #20 tabs 02/27/24 mg-trimethoprim 160 mg tablet (Bactrim DS) amoxicillin 875 mg-potassium 1 tab PO BID #20 tabs 03/06/24 clavulanate 125 mg tablet hydrocodone 5 mg-acetaminophen 325 1 tab PO Q8H PRN pain #7 tabs 03/06/24 mg tablet ketorolac 10 mg tablet 10 mg PO TID PRN pain #10 tabs 03/06/24 Allergies Allergy/AdvReac Type Severity Reaction Status Date / Time clindamycin Allergy Mild vomiting Verified 02/27/24 10:10 PFSH ED PFSH: Medical History Dental infection History of seizures Melanoma Rheumatoid arthritis Skin cancer (melanoma) Migraines Hypertension Surgical History History of dental surgery History of neck surgery removal of cyst History of hand surgery History of foot surgery tendon repair History of colonoscopy History of endoscopy Hx of appendectomy Family History Mother Cancer unknown S/P coronary artery stent placement Myocardial infarction Family/Other Cancer Paternal uncle-leukemia Other Bleeding disorder CAD (coronary artery disease) Chronic kidney disease (CKD) Diabetes Hyperlipidemia Hypertension Stroke Social History Smoking and tobacco/nicotine status: current every day tobacco/nicotine user cigarettes Packs smoked per day: 1 Years cigarettes smoked: 20 [ Other cigarette details: 1-2 ppd tries to stay under 1 ppd ] Second hand smoke exposure: Yes Alcohol intake: current Alcohol intake frequency: few times a month Substance/Drug Use: current Substance/Drug use frequency: daily Lives independently: Yes Marital status: Single Current occupational status: unemployed Special zahida needs: No Agree to transfusion: Yes Physical Exam Const: COMMON NORMALS: no acute distress GENERAL APPEARANCE: cooperative; not ill appearing and not frail appearing HENMT: COMMON NORMALS: normocephalic, atraumatic and Normal external nose present HEAD & SCALP: normocephalic and atraumatic FACE & SINUS: normal facial exam and face symmetric NOSE: Normal external nose present TEETH & GINGIVA: Yes abnormal tooth and associated gingiva (left upper molar gingival redness, mild swelling) Eye: COMMON NORMALS: Equal, round and reactive pupils present and EOMs intact bilaterally PUPIL: Yes Equal, round and reactive pupils present Neck/C-Spine: GENERAL: Yes trachea midline Chest: CHEST: Yes Symmetrical chest wall rise Resp: COMMON NORMALS: normal respiratory effort, No retractions and No use of accessory muscles Cardio: COMMON NORMALS: regular rate and regular rhythm RATE: regular rate RHYTHM: regular rhythm Neuro: VIVIANA COMA SCALE: document GCS findings [place] coma scale eye opening: Spontaneous Viviana coma scale verbal response: Orientated [place] coma scale motor response: Obey commands Viviana coma scale total score: 15 SENSORY EXAM: Yes extremities (intact) Psych: COMMON NORMALS: speech normal SPEECH: Yes normal speech Skin: COMMON NORMALS: no rashes or lesions noted GENERAL SKIN EXAM: no rashes or lesions noted Course Vital Signs: Vital signs: Vital Signs Temperature 98.8 F 03/06/24 02:25 Pulse Rate 80 03/06/24 03:52 Respiratory Rate 18 03/06/24 03:52 Blood Pressure 162/88 03/06/24 03:52 Pulse Oximetry 96 03/06/24 03:52 MDM - Dental/Oral Medical Decision Making minimal to equivocal findings on mouth exam. he will be given the benefit of the doubt with a short course of pain medication. abx as appropriate. one dose of dexamethasone here for swelling. he is to see a dentist david, as we will not continue to fill pain medication for this issue. No radiology studies performed this visit Discharge Plan Discharge Patient Disposition: Home Clinical Impression: Dental infection Condition: Stable Prescriptions: New amoxicillin-pot clavulanate 875-125 mg tablet 1 tab PO BID Qty: 20 0RF hydrocodone-acetaminophen 5-325 mg tablet 1 tab PO Q8H PRN (Reason: pain) Qty: 7 0RF ketorolac 10 mg tablet 10 mg PO TID PRN (Reason: pain) Qty: 10 0RF No Action amlodipine 5 mg tablet 5 mg PO DAILY sulfamethoxazole-trimethoprim [Bactrim DS] 800-160 mg tablet 1 tab PO BID 10 Days Qty: 20 0RF mupirocin 2 % ointment 1 applic topical BID Qty: 22 0RF dicyclomine 20 mg tablet 20 mg PO BID Qty: 180 2RF cetirizine [Zyrtec] 10 mg tablet 10 mg PO DAILY PRN (Reason: allergy symptoms) Qty: 30 0RF hydrochlorothiazide 12.5 mg tablet 12.5 mg PO DAILY Rx Instructions: 1 tab a daily amoxicillin-pot clavulanate 875-125 mg tablet 1 tab PO Q12H 10 Days Qty: 20 0RF albuterol sulfate 90 mcg/actuation HFA aerosol inhaler 2 puff inhalation Q6H PRN (Reason: shortness of breath or wheezing) Qty: 8.5 0RF omeprazole 40 mg capsule,delayed release(DR/EC) 40 mg PO DAILY diclofenac sodium 75 mg tablet,delayed release (DR/EC) 75 mg PO Q12H PRN (Reason: pain) Qty: 20 0RF albuterol sulfate 90 mcg/actuation HFA aerosol inhaler 2 inh INHALATION Q4H PRN (Reason: shortness of breath or wheezing) Qty: 18 0RF Discharge Orders: Discharge ED (Routine); Ordered 03/06/24 Ordered By: Bret Stuart Patient Instructions: Dental Abscess (ED), Toothache (ED), Opioid Safety, Pain Management Activity Restrictions/Additional Instructions: See a dentist as soon as possible. Coding Level of Care Code ED Executive Vice President Of Sales for Mirza Fleming
[2024-03-06] MEDS: amoxicillin-clav 875-125 mg Tablet 1 TAB PO (03:45)
[2024-03-06] MEDS: dexamethasone 4 mg Tablet 10 MG PO (03:45)
[2024-03-06 03:52] VITALS: BP 162/88; PULSE 80; RESP 18; O2SAT 96
== END 2024-03-06 03:49 | disposition home or self-care (01) ==
PROVIDERS: Emergency Provider Emergency Medicine
DX: K04.7 Periapical abscess without sinus (principal); F17.210 Nicotine dependence, cigarettes, uncomplicated; C43.9 Malignant melanoma of skin, unspecified; I10 Essential (primary) hypertension
CPT/HCPCS: 99283; J8540

== ENCOUNTER 2024-03-19 16:00 | Outpatient (CLI) | payer MEDICAID, SELFPAY ==
--- NOTE | 2024-03-19 16:45 | US_ITS ---
WS: [id number] THYROID ULTRASOUND HISTORY: NONTOXIC SINGLE THYROID NODULE COMPARISON: Neck CT 02/27/2024 Right lobe: 2.5 cm x 2.1 cm x 5.5 cm (w x ap x l). Volume: 13.5 cm3. Mildly enlarged RIGHT thyroid. Mild heterogeneity. There is a small colloid cyst anteriorly in the mi d gland. No solid mass. No echogenic foci. Left lobe: 1.8 cm x 1.5 cm x 3.2 cm (w x ap x l). Volume: 4.1 cm3. Normal sized gland. There are a few small scattered colloid cysts. Subcentimeter cystic nodules are p resent in the mid gland. Largest nodule is 0.6 x 0.5 x 0.7 cm and predominantly cystic. Isthmus: 0.4 cm. US/US thyroid [id number] IMPRESSION: TI-RADS 2; no suspicious nodules. Subcentimeter nodules. No concerning characte ristics. No follow-up necessary.
== END 2024-03-19 16:28 | disposition home or self-care (01) ==
PROVIDERS: PCP Dermatology; Visit Provider Dermatology
DX: E04.2 Nontoxic multinodular goiter (principal)
CPT/HCPCS: 76536

== ENCOUNTER 2024-04-02 13:20 | Emergency (ER) | payer MEDICAID, SELFPAY ==
[2024-04-02 13:21] VITALS: BP 132/85; PULSE 75; RESP 16; TEMP 36.6; O2SAT 100; BMI 27.8
--- NOTE | 2024-04-02 13:21 | XRR_ITS ---
PROCEDURE INFORMATION: Exam: XR Chest Exam date and time: 04/02/2024 1:34 PM Age: 33 years old Clinical indication: Angina pectoris; Patient HX: PT states that it is hard for him to breathe with it as it is pressure like in nature. PT also C/O bilat lower abd pain. ; Additional info: Cp TECHNIQUE: Imaging protocol: Radiologic exam of the chest. Views: 1 view. COMPARISON: CT chest w con* [id number] 02/27/2024 8:26 AM FINDINGS: Lungs: Unremarkable. No consolidation. Pleural spaces: Unremarkable. No pleural effusion. No pneumothorax. Heart/Mediastinum: Unremarkable. No cardiomegaly. Bones/joints: Unremarkable. XR/XR chest 1V portable [id number] IMPRESSION: No acute findings.
--- NOTE | 2024-04-02 13:22 | ECG_ITS ---
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 Measurements Intervals [place] Rate: 69 P: 66 MT: 151 QRS: 73 QRSD: 97 T: 52 QT: 378 QTc: 406 Interpretive Statements SINUS RHYTHM Compared to ECG 11/05/2023 16:52:21 Sinus bradycardia no longer present Electronically Signed On 04-02-2024 18:28:37 TUBING SUPERVISOR by Alban Huffman M.D. [id number]
--- NOTE | 2024-04-02 13:59 | ED_ITS ---
HPI - Chest Pain 2 General: Chief Complaint: Chest Pain Stated Complaint: chest pain Time Seen by Provider: 04/02/24 13:58 History of Present Illness: 33-year-old male presents emergency room with complaint of chest pain. Describes it as a pressure difficult for him to inhale. He also has had some constipation issues and took laxatives at home with no relief. Nonproductive cough patient does smoke. Some epigastric discomfort as well. No hemoptysis. No fever sweats or chills. Associated symptoms: Deny abdominal pain, dyspnea or fever(s) Related Data Home Medications Medication Instructions Recorded Confirmed albuterol sulfate 2.5 mg/3 mL 2.5 mg inhalation Q4H PRN 04/02/24 04/02/24 (0.083 %) solution for nebulization Shortness Of Breath Or Wheezing albuterol sulfate 90 mcg/actuation 2 puff inhalation Q4H PRN 04/02/24 04/02/24 aerosol inhaler (Ventolin HFA) Shortness Of Breath Or Wheezing Previous Rx's Medication Instructions Recorded dicyclomine 20 mg tablet 20 mg PO BID #180 tabs 09/20/22 mupirocin 2 % topical ointment 1 applic topical BID #22 grams 02/27/24 albuterol sulfate 90 mcg/actuation 2 inh inhalation Q4H PRN shortness 04/02/24 aerosol inhaler of breath or wheezing #18 grams budesonide-formoterol HFA 80 1 inh inhalation BID #10.2 grams 04/02/24 mcg-4.5 mcg/actuation aerosol inhaler (Symbicort) prednisone 20 mg tablet 20 mg PO TID #15 tabs 04/02/24 Allergies Allergy/AdvReac Type Severity Reaction Status Date / Time clindamycin Allergy Mild vomiting Verified 04/02/24 13:26 Review of Systems 2 Const: Denies: fever(s) or chills Card: Reports: chest pain and dyspnea on exertion; Denies: edema Resp: Denies: dyspnea GI: Denies: abdominal pain : Denies: dysuria, urinary frequency or urinary urgency Musc: Denies: neck pain or back pain Skin/Breast: Denies: rash PFSH ED 2 PFSH: Medical History Dental infection History of seizures Melanoma Rheumatoid arthritis Skin cancer (melanoma) Migraines Hypertension Surgical History History of dental surgery History of neck surgery removal of cyst History of hand surgery History of foot surgery tendon repair History of colonoscopy History of endoscopy Hx of appendectomy Family History Mother Cancer unknown S/P coronary artery stent placement Myocardial infarction Family/Other Cancer Paternal uncle-leukemia Other Bleeding disorder CAD (coronary artery disease) Chronic kidney disease (CKD) Diabetes Hyperlipidemia Hypertension Stroke Social History Smoking and tobacco/nicotine status: current every day tobacco/nicotine user cigarettes Packs smoked per day: 1 Years cigarettes smoked: 20 [ Other cigarette details: 1-2 ppd tries to stay under 1 ppd ] Second hand smoke exposure: Yes Alcohol intake: current Alcohol intake frequency: few times a month Substance/Drug Use: current Substance/Drug use frequency: daily Lives independently: Yes Marital status: Single Current occupational status: unemployed Special zahida needs: No Agree to transfusion: Yes Physical Exam 2 Const: COMMON NORMALS: no acute distress GENERAL APPEARANCE: cooperative and comfortable ORIENTATION/CONSCIOUSNESS: Yes awake, Yes oriented to person, Yes oriented to place and Yes oriented to time HENMT: COMMON NORMALS: normocephalic, atraumatic and hearing grossly normal bilaterally HEAD & SCALP: normocephalic and atraumatic Resp: COMMON NORMALS: normal respiratory effort, No retractions, No use of accessory muscles and clear to auscultation bilaterally AUSCULTATION: clear to auscultation bilaterally Cardio: COMMON NORMALS: regular rate, regular rhythm and No murmurs present (Cardio) RATE: regular rate RHYTHM: regular rhythm GI: COMMON NORMALS: Soft to palpation and No hepatosplenomegaly present A USCULTATION: Yes normoactive bowel sounds PALPATION: Yes Soft to palpation, No Tenderness to palpation present (GI), No Guarding due to palpation present (GI) and Yes No hepatosplenomegaly present Extremity: COMMON NORMALS: normal to inspection, capillary refill normal, no clubbing, cyanosis or edema, no calf tenderness and no pedal edema Neuro: SENSORIUM/ORIENTATION: Yes oriented to person, Yes oriented to place and Yes oriented to time Skin: COMMON NORMALS: no rashes or lesions noted GENERAL SKIN EXAM: no rashes or lesions noted Course 2 Vital Signs: Vital signs: Vital Signs Temperature 97.8 F 04/02/24 13:21 Pulse Rate 72 04/02/24 17:22 Respiratory Rate 15 04/02/24 14:30 Blood Pressure 141/89 04/02/24 17:22 Pulse Oximetry 92 04/02/24 17:22 Oxygen Delivery Me thod Room Air 04/02/24 15:47 MDM - Chest Pain Medical Decision Making Cardiac enzymes negative. No sign of pneumonia or pneumothorax no suggestion of acute coronary syndrome and dissection of aneurysm suspect most of his symptoms are caused by his asthma. He may have some pleuritic chest discomfort associated with it as well. Will start him on a steroid taper encourage him to stop smoking. Also start him on Symbicort 1 puff twice daily albuterol to use as needed and follow-up with his primary care doctor. Medical Records I reviewed the patient's medical records. Lab Data I reviewed the patient's lab results. 04/02/24 13:50 04/02/24 13:50 Laboratory Results WBC 9.29 10^3/uL (3.29-11.43) 04/02/24 13:50 RBC 5.12 10^6/uL (3.85-5.65) 04/02/24 13:50 Hgb 15.40 g/dL (11.27-16.99) 04/02/24 13:50 Hct 45.8 % (37-53) 04/02/24 13:50 MCV 89.5 fl (82-101) 04/02/24 13:50 MCH 30.1 pg (27-33) 04/02/24 13:50 MCHC 33.6 g/dL (30-55) 04/02/24 13:50 RDW 11.9 % (12.1-15.1) L 04/02/24 13:50 Plt Count 277 10^3/cmm (157-399) 04/02/24 13:50 MPV 10.6 fL (7.4-10.4) H 04/02/24 13:50 Neut % (Auto) 69.7 % 04/02/24 13:50 Lymph % (Auto) 21.2 % 04/02/24 13:50 [place] % (Auto) 6.6 % 04/02/24 13:50 Eos % (Auto) 1.9 % 04/02/24 13:50 Baso % (Auto) 0.5 % 04/02/24 13:50 Neut # (Auto) 6.47 10^3/uL (1.8-7.7) 04/02/24 13:50 Lymph # (Auto) 2.0 10^3/uL (0.8-4.8) 04/02/24 13:50 [place] # (Auto) 0.6 10^3/uL (0.2-0.9) 04/02/24 13:50 Eos # (Auto) 0.2 10^3/uL (0.0-0.8) 04/02/24 13:50 Baso # (Auto) 0.1 10^3/uL (0.0-0.1) 04/02/24 13:50 Nucleated RBC % (auto) 0 % 04/02/24 13:50 Nucleated RBCs # 0.0 /100WBC 04/02/24 13:50 D-Dimer <= 0.27 ug/mLFEU (0-0.59) 04/02/24 13:50 Sodium 141 mmol/L (136-145) 04/02/24 13:50 Potassium 3.8 mmol/L (3.5-5.1) 04/02/24 13:50 Chloride 103 mmol/L (98-107) 04/02/24 13:50 Carbon Dioxide 27 mmol/L (22-29) 04/02/24 13:50 Anion Gap 14.8 (5-19) 04/02/24 13:50 BUN 11 mg/dL (6-20) 04/02/24 13:50 Creatinine 0.9 mg/dL (0.7-1.2) 04/02/24 13:50 GFR Calculation 97.2 mL/min (90-130) 04/02/24 13:50 Glucose 90 mg/dL (65-115) 04/02/24 13:50 Calculated Osmolality 291 mOsm/kg (285-295) 04/02/24 13:50 Calcium 9.5 mg/dL (8.5-10.5) 04/02/24 13:50 Total Bilirubin 0.2 mg/dL (0.15-1.2) 04/02/24 13:50 AST 15 U/L (0-40) 04/02/24 13:50 ALT 14 U/L (0-41) 04/02/24 13:50 Alkaline Phosphatase 109 U/L (40-130) 04/02/24 13:50 Troponin T Baseline < 6 ng/L (0-15) 04/02/24 13:50 Troponin T 120 Minute 6.23 ng/L (0-15) 04/02/24 16:12 Delta Troponin T 0.74169 ABS# (0-10) 04/02/24 16:12 Total Protein 6.4 g/dL (6.6-8.7) L 04/02/24 13:50 Albumin 4.3 g/dL (3.5-5.2) 04/02/24 13:50 Globulin 2.1 g/dL (1.3-4.6) 04/02/24 13:50 All radiology interpretation(s) finalized by discharge Discharge Plan Discharge Patient Disposition: Home Clinical Impression: Atypical chest pain, Asthma Condition: Stable Prescriptions: New prednisone 20 mg tablet 20 mg PO TID Qty: 15 0RF Rx Instructions: 1 p.o. 3 times daily x3 days, 1 p.o. twice daily x2 days, 1 p.o. daily x2 days albuterol sulfate 90 mcg/actuation HFA aerosol inhaler 2 inh INHALATION Q4H PRN (Reason: shortness of breath or wheezing) Qty: 18 0RF budesonide-formoterol [Symbicort] 80-4.5 mcg/actuation HFA aerosol inhaler 1 inh inhalation BID Qty: 10.2 0RF No Action mupirocin 2 % ointment 1 applic topical BID Qty: 22 0RF dicyclomine 20 mg tablet 20 mg PO BID Qty: 180 2RF albuterol sulfate [Ventolin HFA] 90 mcg/actuation HFA aerosol inhaler 2 puff INHALATION Q4H PRN (Reason: Shortness Of Breath Or Wheezing) albuterol sulfate 2.5 mg /3 mL (0.083 %) solution for nebulization 2.5 mg inhalation Q4H PRN (Reason: Shortness Of Breath Or Wheezing) Discharge Orders: Discharge ED (Routine); Ordered 04/02/24 Ordered By: Anirudh Guerrero Referrals: Monique Cosby DO [Primary Care Provider] - Discharge Diet: Usual diet Discharge Activity: Increase activity as tolerated Patient Instructions: Opioid Safety, Pain Management Activity Restrictions/Additional Instructions: Thank you for choosing [facility] for your healthcare needs today. It is very important that you follow up as instructed or that you return to the Emergency Department should you have concerns or if your condition changes or worsens in any way. You were seen in the emergency room with complaints of chest discomfort and shortness of breath believe this is likely related to your asthma there is no sign of any acute coronary syndrome. Will start you on Advair 1 puff twice daily also use albuterol as needed steroid taper follow-up with your primary care doctor Coding Level of Care Code ED [employer] Supervisor for Mirza Fleming
[2024-04-02 14:00] VITALS: BP 126/77; PULSE 84; RESP 14; O2SAT 97
--- NOTE | 2024-04-02 14:00 | XRR_ITS ---
PROCEDURE INFORMATION: Exam: XR Abdomen Exam date and time: 04/02/2024 2:11 PM Age: 33 years old Clinical indication: Abdominal pain; Generalized; Patient HX: Chest pains and difficulty breathing x 4 days, HX of melanoma TECHNIQUE: Imaging protocol: Radiologic exam of the abdomen. Views: 2 Views. Upright and supine views. COMPARISON: CT chest abdpel w/*[id number] 04/25/2023 12:08 PM FINDINGS: Gastrointestinal tract: Normal. No bowel dilation. Intraperitoneal space: Normal. No free air. Bones/joints: Unremarkable for age. XR/XR abdomen min 2V [id number] IMPRESSION: No acute findings.
[2024-04-02 14:04] LABS: Basophils # 0.1 10^3/uL (0.0-0.1); Basophils % 0.5 %; Eosinophils # 0.2 10^3/uL (0.0-0.8); Eosinophils % 1.9 %; Hematocrit 45.8 % (37-53); Lymphocytes % 21.2 %; Mean Corpuscular HGB Conc 33.6 g/dL (30-55); Mean Corpuscular Hemoglobin 30.1 pg (27-33); Mean Corpuscular Volume 89.5 fl (82-101); Mean Platelet Volume 10.6 fL (7.4-10.4); Monocytes # 0.6 10^3/uL (0.2-0.9); Monocytes % 6.6 %; Neutrophils # 6.47 10^3/uL (1.8-7.7); Neutrophils % 69.7 %; Nucleated Red Blood Cells % 0 %; Platelet Count 277 10^3/cmm (157-399); Red Blood Count 5.12 10^6/uL (3.85-5.65); Red Cell Distribution Width 11.9 % (12.1-15.1); White Blood Count 9.29 10^3/uL (3.29-11.43)
[2024-04-02 14:21] LABS: D Dimer <= 0.27 ug/mLFEU (0-0.59)
[2024-04-02 14:25] LABS: Alanine Aminotransferase 14 U/L (0-41); Albumin Level 4.3 g/dL (3.5-5.2); Alkaline Phosphatase 109 U/L (40-130); Anion Gap 14.8 (5-19); Aspartate Amino Transferase 15 U/L (0-40); Blood Urea Nitrogen 11 mg/dL (6-20); Calcium 9.5 mg/dL (8.5-10.5); Carbon Dioxide 27 mmol/L (22-29); Chloride 103 mmol/L (98-107); Creatinine Clr Calc Pharmacy 134.5215; Globulin 2.1 g/dL (1.3-4.6); Glomerular Filtration Rate 97.2 mL/min (90-130); Glucose 90 mg/dL (65-115); Osmolality Calculated 291 mOsm/kg (285-295); Potassium 3.8 mmol/L (3.5-5.1); Sodium 141 mmol/L (136-145); Total Bilirubin 0.2 mg/dL (0.15-1.2); Total Protein 6.4 g/dL (6.6-8.7)
[2024-04-02 14:28] LABS: Troponin(5th) Baseline < 6 ng/L (0-15)
[2024-04-02 14:30] VITALS: BP 129/89; PULSE 70; RESP 15; O2SAT 97
[2024-04-02 15:47] VITALS: BP 124/81; PULSE 65; O2SAT 97
--- NOTE | 2024-04-02 15:48 | ECG_ITS ---
[facility] Date: 2024-04-02 Pat Name: Bird Ortiz Department: Room: Gender: Male Rn Progressive Care: : 1990 Requested By: Chaka Escobar Order Number: [id number] Navarrete MD: Alban Huffman M.D. Measurements Intervals [place] Rate: 63 P: 56 NC: 158 QRS: 58 QRSD: 97 T: 47 QT: 401 QTc: 413 Interpretive Statements SINUS RHYTHM WITH SINUS ARRHYTHMIA Compared to ECG 04/02/2024 13:22:14 No significant changes Electronically Signed On 04-02-2024 18:37:57 SENIOR COMMISSARY AGENT by Alban Huffman M.D. [email or web address]
[2024-04-02 16:39] LABS: Troponin 5 2HR 6.23 ng/L (0-15); Troponin 5 2HR Delta 0.23001 ABS# (0-10)
[2024-04-02 17:22] VITALS: BP 141/89; PULSE 72; O2SAT 92
== END 2024-04-02 17:24 | disposition home or self-care (01) ==
PROVIDERS: Emergency Medicine; Emergency Provider Family Medicine; PCP Dermatology
DX: R07.89 Other chest pain (principal); J45.909 Unspecified asthma, uncomplicated; F17.210 Nicotine dependence, cigarettes, uncomplicated; Z85.820 Personal history of malignant melanoma of skin; I10 Essential (primary) hypertension
CPT/HCPCS: 36415; 71045; 74019; 80053; 84484; 85025; 85378; 93005; 99285

== ENCOUNTER 2024-04-07 01:58 | Emergency (ER) | payer MEDICAID, SELFPAY ==
[2024-04-07] VITALS (12 sets, daily range): BP systolic 106–144; BP diastolic 61–100; PULSE 58–91; RESP 18–20; TEMP 36.7; O2SAT 91–98; BMI 26.4
--- NOTE | 2024-04-07 02:07 | ECG_ITS ---
[facility] Test Date: 2024-04-07 Pat Name: Bird Ortiz Department: Room: Gender: Male [place] Gatherer: : 1990 Requested By: Papo Mayorga Order Number: [id number] Navarrete MD: Alban Huffman M.D. Measurements Intervals [place] Rate: 80 P: 62 [place]: 142 QRS: 62 QRSD: 104 T: 46 QT: 363 QTc: 420 Interpretive Statements SINUS RHYTHM WITH SINUS ARRHYTHMIA Compared to ECG 04/02/2024 15:48:55 No significant changes Electronically Signed On 04-08-2024 12:36:04 MEATMAN by Alban Huffman M.D. [email or web address]
--- NOTE | 2024-04-07 02:21 | CTR_ITS ---
PROCEDURE INFORMATION: Exam: CT Chest With Contrast; Diagnostic Exam date and time: 04/07/2024 2:50 AM Age: 33 years old Clinical indication: Abdominal pain; Localized; Right upper quadrant (ruq); Chest wall pain; Prior surgery; Surgery date: 6+ months; Surgery type: Appy; Additional info: Chest tightness, dyspnea, right upper quadrant abdominal [place] TECHNIQUE: Imaging protocol: Diagnostic computed tomography of the chest with contrast. Radiation optimization: All CT scans at this facility use at least one of these dose optimization techniques: automated exposure control; mA and/or kV adjustment per patient size (includes targeted exams where dose is matched to clinical indication); or iterative reconstruction. Contrast material: OMNI 350; Contrast volume: 100 ml; Contrast route: INTRAVENOUS (IV); COMPARISON: CT chest w con* [id number] 02/27/2024 8:26 AM RADIATION DOSE METRICS: Total DLP (mGy-cm): 403 FINDINGS: Lungs: Interval appearance of a 4.5 mm anterior right upper lobe solid nodule (series 3, image 26). No further significant lung findings. Pleural spaces: Unremarkable. No pneumothorax. No pleural effusion. Heart: Unremarkable. No cardiomegaly. No pericardial effusion. Lymph nodes: Unremarkable. No enlarged lymph nodes. Vasculature: Unremarkable. No aortic aneurysm. Bones/joints: Unremarkable. No acute fracture. Soft tissues: Unremarkable. information because of the low risk of cancer in this age group. (Reference: Felicitas) 2. Otherwise, no significant thoracic findings. REFERENCES: Felicitas Cardoso, et al. Guidelines for Management of Incidental Pulmonary Nodules Detected on CT Images: From the Fleischner Society 2017. Radiology. 2017;284(1):228-243. PROCEDURE INFORMATION: Exam: CT Abdomen And Pelvis With Contrast Exam date and time: 04/07/2024 2:50 AM Age: 33 years old Clinical indication: Abdominal pain; Localized; Right upper quadrant (ruq); Chest wall pain; Prior surgery; Surgery date: 6+ months; Surgery type: Appy; Additional info: Chest tightness, dyspnea, right upper quadrant abdominal [place] TECHNIQUE: Imaging protocol: Computed tomography of the abdomen and pelvis with contrast. Radiation optimization: All CT scans at this facility use at least one of these dose optimization techniques: automated exposure control; mA and/or kV adjustment per patient size (includes targeted exams where dose is matched to clinical indication); or iterative reconstruction. Contrast material: OMNI 350; Contrast volume: 100 ml; Contrast route: INTRAVENOUS (IV); COMPARISON: CT chest abdpel w/*[id number] 04/25/2023 12:08 PM RADIATION DOSE METRICS: Total DLP (mGy-cm): 651.3 FINDINGS: Lungs: Lung bases are clear as visualized. Heart: Base of heart is unremarkable as visualized. Liver: Normal. No mass. Gallbladder and biliary ducts: Decompressed gallbladder with artificially prominent cunningham. Pancreas: Normal. No ductal dilation. Spleen: Normal. No splenomegaly. Adrenal glands: Normal. No mass. Kidneys and ureters: Normal. No hydronephrosis. Stomach and bowel: Moderate to severe colonic stool burden. Appendix: Status post appendectomy. Intraperitoneal space: Unremarkable. No free air. No significant fluid collection. Vasculature: Unremarkable. No abdominal aortic aneurysm. Lymph nodes: Unremarkable. No enlarged lymph nodes. Urinary bladder: Thickened urinary bladder wall right of midline superior bladder diverticulum early diverticulosis without evidence of diverticulitis. Reproductive: Unremarkable as visualized. Bones/joints: Unremarkable. No acute fracture. Soft tissues: Unremarkable. CT[facility]/*[id number] IMPRESSION: 1. Nonspecific lung nodule which has intervally appeared from prior comparison suggesting infectious/inflammatory response. No consensus guidelines for nodule follow-ups for patients under the age of 35. If the patient does not have known cancer, follow up should be based on clinical IMPRESSION: 1. Decompressed gallbladder with artificially prominent cunningham. If there is further concern for right upper quadrant pathology recommend right upper quadrant ultrasound. 2. Findings suggestive of cystitis, correlate clinically.
[2024-04-07 02:28] LABS: Basophils # 0.1 10^3/uL (0.0-0.1); Basophils % 0.4 %; Eosinophils # 0.2 10^3/uL (0.0-0.8); Eosinophils % 1.2 %; Hematocrit 46.3 % (37-53); Lymphocytes # 3.4 10^3/uL (0.8-4.8); Lymphocytes % 24.6 %; Mean Corpuscular HGB Conc 34.3 g/dL (30-55); Mean Corpuscular Hemoglobin 30.2 pg (27-33); Mean Platelet Volume 10.2 fL (7.4-10.4); Monocytes % 7.1 %; Neutrophils # 9.18 10^3/uL (1.8-7.7); Neutrophils % 66.3 %; Nucleated Red Blood Cells % 0 %; Platelet Count 304 10^3/cmm (157-399); Red Blood Count 5.26 10^6/uL (3.85-5.65); Red Cell Distribution Width 12.1 % (12.1-15.1); White Blood Count 13.85 10^3/uL (3.29-11.43)
--- NOTE | 2024-04-07 02:28 | W.ED.GENADLT ---
Documented by User: Papo Mayorga DO 04/07/24 02:29 HPI - General Adult General: Chief complaint: Abdominal Pain Stated complaint: ABD Pain Time Seen by Provider: 04/07/24 02:13 History of Present Illness: Patient presents to the ER with right-sided abdominal pain right rib pain and shortness of breath. He was seen approximately 3 days ago in this ER for this exact same symptoms had lab work x-rays diagnosed with asthma and sent home on prednisone and inhalers. He said they did not work and he still having this discomfort and increased work of breathing. Related Data Home Medications Medication Instructions Recorded Confirmed mupirocin 2 % topical ointment 1 applic topical BID PRN Skin 04/07/24 04/07/24 Irritation Previous Rx's Medication Instructions Recorded albuterol sulfate 90 mcg/actuation 2 inh inhalation Q4H PRN shortness 04/02/24 aerosol inhaler of breath or wheezing #18 grams budesonide-formoterol HFA 80 1 inh inhalation BID #10.2 grams 04/02/24 mcg-4.5 mcg/actuation aerosol inhaler (Symbicort) prednisone 20 mg tablet 20 mg PO TID #15 tabs 04/02/24 ondansetron HCl 4 mg tablet 4 mg PO Q6H PRN nausea and 04/07/24 vomiting #20 tabs Allergies Allergy/AdvReac Type Severity Reaction Status Date / Time clindamycin Allergy Mild vomiting Verified 04/07/24 02:16 Review of Systems General: Reports: 10 or more systems reviewed and unremarkable except in HPI and below PFSH ED PFSH: Medical History Dental infection History of seizures Melanoma Rheumatoid arthritis Skin cancer (melanoma) Migraines Hypertension Surgical History History of dental surgery History of neck surgery removal of cyst History of hand surgery History of foot surgery tendon repair History of colonoscopy History of endoscopy Hx of appendectomy Family History Mother Cancer unknown S/P coronary artery stent placement Myocardial infarction Family/Other Cancer Paternal uncle-leukemia Other Bleeding disorder CAD (coronary artery disease) Chronic kidney disease (CKD) Diabetes Hyperlipidemia Hypertension Stroke Social History (Reviewed 04/07/24 @ 02:28 by LENNY Jain Smoking and tobacco/nicotine status: current every day tobacco/nicotine user cigarettes Packs smoked per day: 1 Years cigarettes smoked: 20 [ Other cigarette details: 1-2 ppd tries to stay under 1 ppd ] Second hand smoke exposure: Yes Alcohol intake: current Alcohol intake frequency: few times a month Substance/Drug Use: current Substance/Drug use frequency: daily Lives independently: Yes Marital status: Single Current occupational status: unemployed Special zahida needs: No Agree to transfusion: Yes Physical Exam Const: COMMON NORMALS: no acute distress, average body habitus, patient oriented x3, no limitations, healthy appearing, alert and well nourished HENMT: COMMON NORMALS: normocephalic, atraumatic, hearing grossly normal bilaterally, external ears normal, Normal external nose present and moist oral mucous membranes HEAD & SCALP: normocephalic and atraumatic NOSE: Normal external nose present EXTERNAL EAR: Yes external ears normal Neck/C-Spine: COMMON NORMALS: no JVD Chest: COMMONS NORMALS: normal inspection of the chest and normal palpation of entire chest wall Resp: COMMON NORMALS: normal respiratory effort, No retractions, No use of accessory muscles and clear to auscultation bilaterally AUSCULTATION: clear to auscultation bilaterally Cardio: COMMON NORMALS: no JVD, regular rate, regular rhythm, S1 normal heart sound present, S2 normal heart sound present, No gallops present (Cardio), No clicks present (Cardio), No murmurs present (Cardio) and No rub (Cardio) RATE: regular rate RHYTHM: regular rhythm HEART SOUNDS: S1 normal heart sound present and S2 normal heart sound present GI: COMMON NORMALS: Normal to inspection, nondistended, normoactive bowel sounds present, Soft to palpation, non-tender, No hepatosplenomegaly present and no masses PALPATION: Yes Soft to palpation and Yes No hepatosplenomegaly present Neuro: COMMON NORMALS: patient oriented x3 SENSORIUM/ORIENTATION: Yes alert Course Vital Signs: Vital signs: Vital Signs Temperature 98.0 F 04/07/24 02:13 Pulse Rate 69 04/07/24 09:52 Respiratory Rate 20 H 04/07/24 02:39 Blood Pressure 134/91 04/07/24 09:52 Pulse Oximetry 98 04/07/24 09:52 Oxygen Delivery Me thod Room Air 04/07/24 06:31 MDM - General Adult Medical Records I reviewed the patient's medical records. Lab Data I reviewed the patient's lab results. 04/07/24 02:18 04/07/24 02:18 Radiology Impressions Chest/Abdomen/Pelvis CT 04/07/24 02:21 IMPRESSION: 1. Nonspecific lung nodule which has intervally appeared from prior comparison suggesting infectious/inflammatory response. No consensus guidelines for nodule follow-ups for patients under the age of 35. If the patient does not have known cancer, follow up should be based on clinical IMPRESSION: 1. Decompressed gallbladder with artificially prominent cunningham. If there is further concern for right upper quadrant pathology recommend right upper quadrant ultrasound. 2. Findings suggestive of cystitis, correlate clinically. Laboratory Results WBC 13.85 10^3/uL (3.29-11.43) H 04/07/24 02:18 RBC 5.26 10^6/uL (3.85-5.65) 04/07/24 02:18 Hgb 15.90 g/dL (11.27-16.99) 04/07/24 02:18 Hct 46.3 % (37-53) 04/07/24 02:18 MCV 88.0 fl (82-101) 04/07/24 02:18 MCH 30.2 pg (27-33) 04/07/24 02:18 MCHC 34.3 g/dL (30-55) 04/07/24 02:18 RDW 12.1 % (12.1-15.1) 04/07/24 02:18 Plt Count 304 10^3/cmm (157-399) 04/07/24 02:18 MPV 10.2 fL (7.4-10.4) 04/07/24 02:18 Neut % (Auto) 66.3 % 04/07/24 02:18 Lymph % (Auto) 24.6 % 04/07/24 02:18 [place] % (Auto) 7.1 % 04/07/24 02:18 Eos % (Auto) 1.2 % 04/07/24 02:18 Baso % (Auto) 0.4 % 04/07/24 02:18 Neut # (Auto) 9.18 10^3/uL (1.8-7.7) H 04/07/24 02:18 Lymph # (Auto) 3.4 10^3/uL (0.8-4.8) 04/07/24 02:18 [place] # (Auto) 1.0 10^3/uL (0.2-0.9) H 04/07/24 02:18 Eos # (Auto) 0.2 10^3/uL (0.0-0.8) 04/07/24 02:18 Baso # (Auto) 0.1 10^3/uL (0.0-0.1) 04/07/24 02:18 Nucleated RBC % (auto) 0 % 04/07/24 02:18 Nucleated RBCs # 0.0 /100WBC 04/07/24 02:18 D-Dimer 0.29 ug/mLFEU (0-0.59) 04/07/24 02:18 Specimen Type Arterial 04/07/24 02:48 Sample Site Radial, right 04/07/24 02:48 ABG pH 7.47 (7.35-7.45) H 04/07/24 02:48 ABG pCO2 36.0 mmHg (35-45) 04/07/24 02:48 ABG pO2 86.4 mmHg (80.0-100.0) 04/07/24 02:48 ABG PO2/FiO2 Ratio 411 04/07/24 02:48 ABG HCO3 26.3 mmol/L (22-26) H 04/07/24 02:48 ABG O2 Saturation 98.5 04/07/24 02:48 ABG Base Excess 2.8 mmol/L (-2.0-2.0) H 04/07/24 02:48 Luc Test Pos 04/07/24 02:48 A-a O2 Gradient 2.5 mmHg (5-10) L 04/07/24 02:48 Hematocrit 48.2 % (42-52) 04/07/24 02:48 Hgb O2 Saturation 92.4 % (95-100) L 04/07/24 02:48 Carboxyhemoglobin 5.1 %THgb (0.4-20.1) 04/07/24 02:48 Methemoglobin 1.0 % (0.4-1.5) 04/07/24 02:48 Total Hemoglobin 15.7 g/dL (14-18) 04/07/24 02:48 Sodium 142.0 mmol/L (131-143) 04/07/24 02:48 Potassium 3.7 mmol/L (3.5-5.0) 04/07/24 02:48 Glucose 136.0 mg/dL (70-115) H 04/07/24 02:48 Ionized Calcium 1.2 mmol/L (1.1-1.4) 04/07/24 02:48 O2 Delivery Device Room air 04/07/24 02:48 FiO2 21.0 % 04/07/24 02:48 Organic Preparation Technician ID [id number] 04/07/24 02:48 Sodium 142 mmol/L (136-145) 04/07/24 02:18 Potassium 3.7 mmol/L (3.5-5.1) 04/07/24 02:18 Chloride 102 mmol/L (98-107) 04/07/24 02:18 Carbon Dioxide 26 mmol/L (22-29) 04/07/24 02:18 Anion Gap 17.7 (5-19) 04/07/24 02:18 BUN 15 mg/dL (6-20) 04/07/24 02:18 Creatinine 0.9 mg/dL (0.7-1.2) 04/07/24 02:18 GFR Calculation 97.2 mL/min (90-130) 04/07/24 02:18 Glucose 127 mg/dL (65-115) H 04/07/24 02:18 Calculated Osmolality 296 mOsm/kg (285-295) H 04/07/24 02:18 Calcium 9.4 mg/dL (8.5-10.5) 04/07/24 02:18 Total Bilirubin 0.4 mg/dL (0.15-1.2) 04/07/24 02:18 AST 13 U/L (0-40) 04/07/24 02:18 ALT 14 U/L (0-41) 04/07/24 02:18 Alkaline Phosphatase 115 U/L (40-130) 04/07/24 02:18 Total Protein 6.6 g/dL (6.6-8.7) 04/07/24 02:18 Albumin 4.3 g/dL (3.5-5.2) 04/07/24 02:18 Globulin 2.3 g/dL (1.3-4.6) 04/07/24 02:18 Lipase 37 U/L (13-60) 04/07/24 02:18 Urine Color Dark yellow (Yellow) A 04/07/24 03:00 Urine Appearance Clear (CLEAR) 04/07/24 03:00 Urine pH 6.0 (5-7) 04/07/24 03:00 Ur Specific [place] 1.048 (1.005-1.030) H 04/07/24 03:00 Urine Protein Trace (Negative) A 04/07/24 03:00 Urine Glucose (UA) Negative (Normal) 04/07/24 03:00 Urine Ketones Trace (Negative) 04/07/24 03:00 Urine Blood Negative (Negative) 04/07/24 03:00 Urine Nitrate Negative (Negative) 04/07/24 03:00 Urine Bilirubin 1+ (Negative) H 04/07/24 03:00 Urine Urobilinogen 1.0 mg/dL (Negative) 04/07/24 03:00 Ur Leukocyte Esterase Negative (Negative) 04/07/24 03:00 Urine RBC 0-2 /hpf (0-2) 04/07/24 03:00 Urine WBC 0-5 /hpf (0-5) 04/07/24 03:00 Ur Squamous Epith Cells 0-5 /hpf (0-5) 04/07/24 03:00 Amorphous Sediment Not Reportable 04/07/24 03:00 Urine Bacteria None seen /hpf (NONE) 04/07/24 03:00 Hyaline Casts 0.81 /lpf 04/07/24 03:00 Urine Opiates Screen Negative ng/mL (Negative) 04/07/24 03:00 Ur Barbiturates Screen Negative ng/mL (Negative) 04/07/24 03:00 Ur Phencyclidine Scrn Negative ng/mL (Negative) 04/07/24 03:00 Ur Amphetamines Screen Negative ng/mL (Negative) 04/07/24 03:00 U Benzodiazepines Scrn Negative ng/mL (Negative) 04/07/24 03:00 Urine Cocaine Screen Negative ng/mL (Negative) 04/07/24 03:00 U Marijuana (THC) Screen Positive ng/mL (Negative) H 04/07/24 03:00 All radiology interpretation(s) finalized by discharge Discharge Plan Discharge Patient Disposition: Home Clinical Impression: Biliary colic IBS (irritable bowel syndrome) Qualifiers: Irritable bowel syndrome type: unspecified Qualified Code(s): K58.9 - Irritable bowel syndrome without diarrhea Condition: Stable Prescriptions: New ondansetron HCl 4 mg tablet 4 mg PO Q6H PRN (Reason: nausea and vomiting) Qty: 20 0RF No Action prednisone 20 mg tablet 20 mg PO TID Qty: 15 0RF Rx Instructions: Take 1 tablet by mouth 3 times daily for 3 days, 1 tablet twice daily for 2 days, 1 tablet daily for 2 days. albuterol sulfate 90 mcg/actuation HFA aerosol inhaler 2 inh INHALATION Q4H PRN (Reason: shortness of breath or wheezing) Qty: 18 0RF budesonide-formoterol [Symbicort] 80-4.5 mcg/actuation HFA aerosol inhaler 1 inh inhalation BID Qty: 10.2 0RF mupirocin 2 % ointment 1 applic topical BID PRN (Reason: Skin Irritation) Discharge Orders: Discharge ED (Routine); Ordered 04/07/24 Ordered By: Anirudh Guerrero Referrals: Monique Cosby DO [Primary Care Provider] - Patient Instructions: Biliary Colic (ED), Abdominal Pain (ED), Opioid Safety, Pain Management Activity Restrictions/Additional Instructions: Thank you for choosing [facility] for your healthcare needs today. It is very important that you follow up as instructed or that you return to the Emergency Department should you have concerns or if your condition changes or worsens in any way. You are seen in the emergency room with complaint of right-sided abdominal pain you report radiating to your back. Your urine was normal. There is some thickening of the gallbladder wall over it was decompressed was difficult to be certain how significant that is. Your liver functions were normal. Your description of the pain radiating to your back from the epigastric right upper quadrant is suggestive of a gallbladder issue. Will set you up for an outpatient gallbladder ultrasound as well as a HIDA scan and follow-up with general surgery. Avoid fatty foods greasy foods and red meats. Sign Out Sign Out Data: Patient Sign Out occurred on 04/07/24 at 06:18. Patient's care was discussed, and care was transferred from Papo Mayorga DO to Anirudh Guerrero DO. Coding Level of Care Code ED Machine Ii Cutter for Chg Fwd Documented by User: Anirudh Guerrero DO 04/07/24 13:31 HPI - General Adult General: Chief complaint: Abdominal Pain Stated complaint: ABD Pain Time Seen by Provider: 04/07/24 02:13 Related Data Home Medications Medication Instructions Recorded Confirmed mupirocin 2 % topical ointment 1 applic topical BID PRN Skin 04/07/24 04/07/24 Irritation Previous Rx's Medication Instructions Recorded albuterol sulfate 90 mcg/actuation 2 inh inhalation Q4H PRN shortness 04/02/24 aerosol inhaler of breath or wheezing #18 grams budesonide-formoterol HFA 80 1 inh inhalation BID #10.2 grams 04/02/24 mcg-4.5 mcg/actuation aerosol inhaler (Symbicort) prednisone 20 mg tablet 20 mg PO TID #15 tabs 04/02/24 ondansetron HCl 4 mg tablet 4 mg PO Q6H PRN nausea and 04/07/24 vomiting #20 tabs Allergies Allergy/AdvReac Type Severity Reaction Status Date / Time clindamycin Allergy Mild vomiting Verified 04/07/24 02:16 PFSH ED PFSH: Medical History Dental infection History of seizures Melanoma Rheumatoid arthritis Skin cancer (melanoma) Migraines Hypertension Surgical History History of dental surgery History of neck surgery removal of cyst History of hand surgery History of foot surgery tendon repair History of colonoscopy History of endoscopy Hx of appendectomy Family History Mother Cancer unknown S/P coronary artery stent placement Myocardial infarction Family/Other Cancer Paternal uncle-leukemia Other Bleeding disorder CAD (coronary artery disease) Chronic kidney disease (CKD) Diabetes Hyperlipidemia Hypertension Stroke Social History Smoking and tobacco/nicotine status: current every day tobacco/nicotine user cigarettes Packs smoked per day: 1 Years cigarettes smoked: 20 [ Other cigarette details: 1-2 ppd tries to stay under 1 ppd ] Second hand smoke exposure: Yes Alcohol intake: current Alcohol intake frequency: few times a month Substance/Drug Use: current Substance/Drug use frequency: daily Lives independently: Yes Marital status: Single Current occupational status: unemployed Special zahida needs: No Agree to transfusion: Yes Course Vital Signs: Vital signs: Vital Signs Temperature 98.0 F 04/07/24 02:13 Pulse Rate 69 04/07/24 09:52 Respiratory Rate 20 H 04/07/24 02:39 Blood Pressure 134/91 04/07/24 09:52 Pulse Oximetry 98 04/07/24 09:52 Oxygen Delivery Me thod Room Air 04/07/24 06:31 MDM - General Adult Medical Decision Making Care assumed at change of shift. Patient reporting epigastric right upper quadrant pain radiating to his back. He has no dysuria urgency or frequency. His liver function are normal. There is thickening of the gallbladder wall. Suspect he may be getting biliary dyskinesia biliary colic. Will discharge him home discussed dietary avoidance with him. Will set him up for gallbladder ultrasound and HIDA scan follow-up with general surgery. Lab Data 04/07/24 02:18 04/07/24 02:18 Radiology Impressions Chest/Abdomen/Pelvis CT 04/07/24 02:21 IMPRESSION: 1. Nonspecific lung nodule which has intervally appeared from prior comparison suggesting infectious/inflammatory response. No consensus guidelines for nodule follow-ups for patients under the age of 35. If the patient does not have known cancer, follow up should be based on clinical IMPRESSION: 1. Decompressed gallbladder with artificially prominent cunningham. If there is further concern for right upper quadrant pathology recommend right upper quadrant ultrasound. 2. Findings suggestive of cystitis, correlate clinically. Laboratory Results WBC 13.85 10^3/uL (3.29-11.43) H 04/07/24 02:18 RBC 5.26 10^6/uL (3.85-5.65) 04/07/24 02:18 Hgb 15.90 g/dL (11.27-16.99) 04/07/24 02:18 Hct 46.3 % (37-53) 04/07/24 02:18 MCV 88.0 fl (82-101) 04/07/24 02:18 MCH 30.2 pg (27-33) 04/07/24 02:18 MCHC 34.3 g/dL (30-55) 04/07/24 02:18 RDW 12.1 % (12.1-15.1) 04/07/24 02:18 Plt Count 304 10^3/cmm (157-399) 04/07/24 02:18 MPV 10.2 fL (7.4-10.4) 04/07/24 02:18 Neut % (Auto) 66.3 % 04/07/24 02:18 Lymph % (Auto) 24.6 % 04/07/24 02:18 [place] % (Auto) 7.1 % 04/07/24 02:18 Eos % (Auto) 1.2 % 04/07/24 02:18 Baso % (Auto) 0.4 % 04/07/24 02:18 Neut # (Auto) 9.18 10^3/uL (1.8-7.7) H 04/07/24 02:18 Lymph # (Auto) 3.4 10^3/uL (0.8-4.8) 04/07/24 02:18 [place] # (Auto) 1.0 10^3/uL (0.2-0.9) H 04/07/24 02:18 Eos # (Auto) 0.2 10^3/uL (0.0-0.8) 04/07/24 02:18 Baso # (Auto) 0.1 10^3/uL (0.0-0.1) 04/07/24 02:18 Nucleated RBC % (auto) 0 % 04/07/24 02:18 Nucleated RBCs # 0.0 /100WBC 04/07/24 02:18 D-Dimer 0.29 ug/mLFEU (0-0.59) 04/07/24 02:18 Specimen Type Arterial 04/07/24 02:48 Sample Site Radial, right 04/07/24 02:48 ABG pH 7.47 (7.35-7.45) H 04/07/24 02:48 ABG pCO2 36.0 mmHg (35-45) 04/07/24 02:48 ABG pO2 86.4 mmHg (80.0-100.0) 04/07/24 02:48 ABG PO2/FiO2 Ratio 411 04/07/24 02:48 ABG HCO3 26.3 mmol/L (22-26) H 04/07/24 02:48 ABG O2 Saturation 98.5 04/07/24 02:48 ABG Base Excess 2.8 mmol/L (-2.0-2.0) H 04/07/24 02:48 Luc Test Pos 04/07/24 02:48 A-a O2 Gradient 2.5 mmHg (5-10) L 04/07/24 02:48 Hematocrit 48.2 % (42-52) 04/07/24 02:48 Hgb O2 Saturation 92.4 % (95-100) L 04/07/24 02:48 Carboxyhemoglobin 5.1 %THgb (0.4-20.1) 04/07/24 02:48 Methemoglobin 1.0 % (0.4-1.5) 04/07/24 02:48 Total Hemoglobin 15.7 g/dL (14-18) 04/07/24 02:48 Sodium 142.0 mmol/L (131-143) 04/07/24 02:48 Potassium 3.7 mmol/L (3.5-5.0) 04/07/24 02:48 Glucose 136.0 mg/dL (70-115) H 04/07/24 02:48 Ionized Calcium 1.2 mmol/L (1.1-1.4) 04/07/24 02:48 O2 Delivery Device Room air 04/07/24 02:48 FiO2 21.0 % 04/07/24 02:48 Organic Preparation Technician ID [id number] 04/07/24 02:48 Sodium 142 mmol/L (136-145) 04/07/24 02:18 Potassium 3.7 mmol/L (3.5-5.1) 04/07/24 02:18 Chloride 102 mmol/L (98-107) 04/07/24 02:18 Carbon Dioxide 26 mmol/L (22-29) 04/07/24 02:18 Anion Gap 17.7 (5-19) 04/07/24 02:18 BUN 15 mg/dL (6-20) 04/07/24 02:18 Creatinine 0.9 mg/dL (0.7-1.2) 04/07/24 02:18 GFR Calculation 97.2 mL/min (90-130) 04/07/24 02:18 Glucose 127 mg/dL (65-115) H 04/07/24 02:18 Calculated Osmolality 296 mOsm/kg (285-295) H 04/07/24 02:18 Calcium 9.4 mg/dL (8.5-10.5) 04/07/24 02:18 Total Bilirubin 0.4 mg/dL (0.15-1.2) 04/07/24 02:18 AST 13 U/L (0-40) 04/07/24 02:18 ALT 14 U/L (0-41) 04/07/24 02:18 Alkaline Phosphatase 115 U/L (40-130) 04/07/24 02:18 Total Protein 6.6 g/dL (6.6-8.7) 04/07/24 02:18 Albumin 4.3 g/dL (3.5-5.2) 04/07/24 02:18 Globulin 2.3 g/dL (1.3-4.6) 04/07/24 02:18 Lipase 37 U/L (13-60) 04/07/24 02:18 Urine Color Dark yellow (Yellow) A 04/07/24 03:00 Urine Appearance Clear (CLEAR) 04/07/24 03:00 Urine pH 6.0 (5-7) 04/07/24 03:00 Ur Specific [place] 1.048 (1.005-1.030) H 04/07/24 03:00 Urine Protein Trace (Negative) A 04/07/24 03:00 Urine Glucose (UA) Negative (Normal) 04/07/24 03:00 Urine Ketones Trace (Negative) 04/07/24 03:00 Urine Blood Negative (Negative) 04/07/24 03:00 Urine Nitrate Negative (Negative) 04/07/24 03:00 Urine Bilirubin 1+ (Negative) H 04/07/24 03:00 Urine Urobilinogen 1.0 mg/dL (Negative) 04/07/24 03:00 Ur Leukocyte Esterase Negative (Negative) 04/07/24 03:00 Urine RBC 0-2 /hpf (0-2) 04/07/24 03:00 Urine WBC 0-5 /hpf (0-5) 04/07/24 03:00 Ur Squamous Epith Cells 0-5 /hpf (0-5) 04/07/24 03:00 Amorphous Sediment Not Reportable 04/07/24 03:00 Urine Bacteria None seen /hpf (NONE) 04/07/24 03:00 Hyaline Casts 0.81 /lpf 04/07/24 03:00 Urine Opiates Screen Negative ng/mL (Negative) 04/07/24 03:00 Ur Barbiturates Screen Negative ng/mL (Negative) 04/07/24 03:00 Ur Phencyclidine Scrn Negative ng/mL (Negative) 04/07/24 03:00 Ur Amphetamines Screen Negative ng/mL (Negative) 04/07/24 03:00 U Benzodiazepines Scrn Negative ng/mL (Negative) 04/07/24 03:00 Urine Cocaine Screen Negative ng/mL (Negative) 04/07/24 03:00 U Marijuana (THC) Screen Positive ng/mL (Negative) H 04/07/24 03:00 Discharge Plan Discharge Patient Disposition: Home Clinical Impression: Biliary colic IBS (irritable bowel syndrome) Qualifiers: Irritable bowel syndrome type: unspecified Qualified Code(s): K58.9 - Irritable bowel syndrome without diarrhea Condition: Stable Prescriptions: New ondansetron HCl 4 mg tablet 4 mg PO Q6H PRN (Reason: nausea and vomiting) Qty: 20 0RF No Action prednisone 20 mg tablet 20 mg PO TID Qty: 15 0RF Rx Instructions: Take 1 tablet by mouth 3 times daily for 3 days, 1 tablet twice daily for 2 days, 1 tablet daily for 2 days. albuterol sulfate 90 mcg/actuation HFA aerosol inhaler 2 inh INHALATION Q4H PRN (Reason: shortness of breath or wheezing) Qty: 18 0RF budesonide-formoterol [Symbicort] 80-4.5 mcg/actuation HFA aerosol inhaler 1 inh inhalation BID Qty: 10.2 0RF mupirocin 2 % ointment 1 applic topical BID PRN (Reason: Skin Irritation) Discharge Orders: Discharge ED (Routine); Ordered 04/07/24 Ordered By: Anirudh Guerrero Referrals: Monique Cosby DO [Primary Care Provider] - Patient Instructions: Biliary Colic (ED), Abdominal Pain (ED), Opioid Safety, Pain Management Activity Restrictions/Additional Instructions: Thank you for choosing [facility] for your healthcare needs today. It is very important that you follow up as instructed or that you return to the Emergency Department should you have concerns or if your condition changes or worsens in any way. You are seen in the emergency room with complaint of right-sided abdominal pain you report radiating to your back. Your urine was normal. There is some thickening of the gallbladder wall over it was decompressed was difficult to be certain how significant that is. Your liver functions were normal. Your description of the pain radiating to your back from the epigastric right upper quadrant is suggestive of a gallbladder issue. Will set you up for an outpatient gallbladder ultrasound as well as a HIDA scan and follow-up with general surgery. Avoid fatty foods greasy foods and red meats. Sign Out Sign Out Data: Patient Sign Out occurred on 04/07/24 at 06:18. Patient's care was discussed, and care was transferred from Papo Mayorga DO to Anirudh Guerreor DO. Coding Level of Care Code ED Machine Ii Cutter for Mirza Fleming
[2024-04-07] MEDS: ipratropium-albuterol 3 mL Neb INHALATION (02:35)
[2024-04-07 02:43] LABS: D Dimer 0.29 ug/mLFEU (0-0.59)
[2024-04-07 02:50] LABS: Alanine Aminotransferase 14 U/L (0-41); Albumin Level 4.3 g/dL (3.5-5.2); Alkaline Phosphatase 115 U/L (40-130); Anion Gap 17.7 (5-19); Aspartate Amino Transferase 13 U/L (0-40); Blood Urea Nitrogen 15 mg/dL (6-20); Calcium 9.4 mg/dL (8.5-10.5); Carbon Dioxide 26 mmol/L (22-29); Chloride 102 mmol/L (98-107); Creatinine Clr Calc Pharmacy 131.5261; Globulin 2.3 g/dL (1.3-4.6); Glomerular Filtration Rate 97.2 mL/min (90-130); Glucose 127 mg/dL (65-115); Lipase 37 U/L (13-60); Osmolality Calculated 296 mOsm/kg (285-295); Potassium 3.7 mmol/L (3.5-5.1); Sodium 142 mmol/L (136-145); Total Bilirubin 0.4 mg/dL (0.15-1.2); Total Protein 6.6 g/dL (6.6-8.7)
[2024-04-07 02:51] LABS: ABG PH Result 7.47 (7.35-7.45); Alveolar-Arterial Oxygen Gradi 2.5 mmHg (5-10); Arterial Blood Gas Hematocrit 48.2 % (42-52); Base Excess ABG 2.8 mmol/L (-2.0-2.0); Blood Gas Allen Test Pos; Blood Gas Sample Type Arterial; Carboxyhemoglobin 5.1 %THgb (0.4-20.1); HCO3 ABG 26.3 mmol/L (22-26); HGB O2 Sat 92.4 % (95-100); Ionized Calcium Level - ABG 1.2 mmol/L (1.1-1.4); Oxygen Saturation ABG 98.5; PO2 ABG 86.4 mmHg (80.0-100.0); Potassium Level - ABG 3.7 mmol/L (3.5-5.0); Total Hemoglobin 15.7 g/dL (14-18)
[2024-04-07 02:53] LABS: Blood Gas Operator Identificat 600455; Blood Gas Sample Site Radial, right; Oxygen Device ROOM AIR; PO2 FiO2 Ratio Arterial Blood 411
[2024-04-07] MEDS: iohexol 350 mg/mL 500 mL Btl (per mL) IV (02:53)
[2024-04-07 03:07] LABS: Bilirubin Urine 1+ (Negative); Blood Urine Negative (Negative); Glucose Urine UA Negative (Normal); Ketones Urine Trace (Negative); Leukocyte Esterase Urine Negative (Negative); Nitrate Urine Negative (Negative); Protein Urine Trace (Negative); Urine Appearance Clear (CLEAR); Urine Color Dark Yellow (Yellow)
[2024-04-07 03:12] LABS: Add Urine Microscopic? YES; Bacteria Urine None Seen /hpf; Hyaline Casts Urine 0.81 /lpf; RBC Urine 0-2 /hpf (0-2); Squamous Epithelial Cell Urine 0-5 /hpf (0-5); WBC Urine 0-5 /hpf (0-5)
[2024-04-07 03:14] LABS: Amphetamines Screen Urine Negative (Negative); Barbiturates Screen Urine Negative (Negative); Benzodiazepines Screen Urine Negative (Negative); Cocaine Screen Urine Negative (Negative); Opiate Screen Urine Negative (Negative); PCP Screen Urine Negative (Negative); THC Screen Urine Positive (Negative)
[2024-04-07 03:17] LABS: Specific Gravity, Urine 1.048 (1.005-1.030)
--- NOTE | 2024-04-08 10:29 | DCPLANNER ---
messaged gen surg for er f/u
--- NOTE | 2024-04-08 10:36 | DCPLANNER ---
faxed outpatient hida and gb us orders to scheduling
--- NOTE | 2024-04-08 16:43 | DCPLANNER ---
faxed outpatient u/s and hida order to scheduling
== END 2024-04-07 09:53 | disposition home or self-care (01) ==
PROVIDERS: Emergency Medicine; Emergency Provider Family Medicine; PCP Dermatology
DX: K80.50 Calculus of bile duct without cholangitis or cholecystitis without obstruction (principal); K58.9 Irritable bowel syndrome, unspecified; F17.210 Nicotine dependence, cigarettes, uncomplicated; I10 Essential (primary) hypertension; Z85.820 Personal history of malignant melanoma of skin
CPT/HCPCS: 71260; 74177; 80051; 80053; 80306; 81001; 82330; 82805; 83690; 85025; 85378; 93005; 93010; 94640; 99285

== ENCOUNTER 2024-04-15 14:01 | Outpatient (CLI) | payer MEDICAID, SELFPAY ==
--- NOTE | 2024-04-15 14:30 | US_ITS ---
WS: [id number] RIGHT UPPER QUADRANT ULTRASOUND HISTORY: Abdominal pain. COMPARISON: CT 04/07/2024 Liver: 16.2 cm in length. Normal size liver and echogenicity. No bile duct dilatation or mass. Portal Vein: Normal hepatopetal flow with monophasic waveform. Gallbladder: Normally distended gallbladder with no stones or wall thickening. CBD: 0.3 cm Pancreas: Not visualized. Right kidney: 9.7 cm in length. Normal size and echogenicity. No hydronephrosis or mass. Aorta and IVC: Unremarkable abdominal aorta and IVC. No ascites. US/US gall bladder [id number] IMPRESSION: 1. Normal gallbladder. 2. Normal liver. 3. No hepatobiliary dilatation.
== END 2024-04-15 14:02 | disposition home or self-care (01) ==
PROVIDERS: PCP Dermatology; Visit Provider Family Medicine
DX: R10.9 Unspecified abdominal pain (principal)
CPT/HCPCS: 76705

== ENCOUNTER 2024-04-22 08:12 | Outpatient (CLI) | payer MEDICAID, SELFPAY ==
--- NOTE | 2024-04-22 | NM_ITS ---
WS: [id number] NUCLEAR MEDICINE HIDA SCAN WITH GALLBLADDER EJECTION FRACTION HISTORY: RUQ PAIN COMPARISON: Gallbladder ultrasound 04/15/2024 TECHNIQUE: The patient was intravenously injected with 8.3 mCi of TC99m Mebrofenin. Immediate imaging over the right upper quadrant was followed by 5 minute image and additional images for a total of 60 minutes. Normal uptake of radiotracer throughout the liver. Activity identified in the gallbladder at 15 minutes and well distended by 60 minutes. Activity in the proximal small bowel was seen by 60 minutes. Good washout of the radiotracer from the liver by 60 minutes. The patient then drank 8 ounces of Ensure Plus. Ejection fraction at 60 minutes was 62%. Normal GB ej ection fraction is 35-75%. Post fatty meal symptoms: None. NM/NM hepatobiliary w phar* [id number] IMPRESSION: 1. Normal HIDA scan. 2. Normal gallbladder ejection fraction.
== END 2024-04-22 08:13 | disposition home or self-care (01) ==
LOC: RAD 08:12
PROVIDERS: PCP Dermatology; Visit Provider Family Medicine
DX: R10.11 Right upper quadrant pain (principal)
CPT/HCPCS: 78227; A9537

== ENCOUNTER 2024-04-30 13:20 | Emergency (ER) | payer MEDICAID, SELFPAY ==
[2024-04-30 13:23] VITALS: BP 136/82; PULSE 88; RESP 17; TEMP 36.3; O2SAT 96; BMI 26.4
--- NOTE | 2024-04-30 13:39 | CT_ITS ---
WS: [id number] CT HEAD NONCONTRAST HISTORY: severe frontal headache TECHNIQUE: Contiguous axial imaging performed through the brain. Bone and soft tissue windows. Sagitt al and coronal reformats reviewed. All CT scans at [facility] use at least one of these dose optimization techniques: automated exposure control; mA and/or kV adjustment per patient size (includ es targeted exams where dose is matched to clinical indication); or iterative reconstruction. DLP: 1117.30 mGy.cm COMPARISON: 02/07/2023 No acute intracranial hemorrhage, midline shift or mass effect. No atrophy or prior infarcts or herniation. Ventricles: Normal size with no hydrocephalus. Paranasal sinuses: As visualized are clear. Mastoid air cells: Well pneumatized. Calvarium and scalp: Skull is intact with no soft tissue edema or swelling. CT/CT head wo con* [id number] IMPRESSION: Negative head CT.
--- NOTE | 2024-04-30 13:41 | ECG_ITS ---
[facility] Test Date: 2024-04-30 Pat Name: Bird Ortiz Department: Room: Gender: Male Bryologist: : 1990 Requested By: Anirudh Guillen Order Number: [id number] Rosalba MD: Alban Huffman M.D. Measurements Intervals [place] Rate: 65 P: 123 FL: 145 QRS: 115 QRSD: 105 T: 74 QT: 400 QTc: 416 Interpretive Statements SINUS RHYTHM WITH OCCASIONAL SUPRAVENTRICULAR PREMATURE COMPLEXES ARM LEADS REVERSED [INVERTED P AND QRS IN I] Compared to ECG 04/07/2024 02:07:21 Sinus arrhythmia no longer present Electronically Signed On 05-01-2024 23:08:07 ACADEMIC GUIDANCE SPECIALIST by Alban Huffman M.D. [id number]
[2024-04-30] MEDS: ketorolac 30 mg/mL INJ IVP (13:53)
[2024-04-30] MEDS: prochlorperazine 10 mg/2 mL Inj IVP (13:53)
[2024-04-30] MEDS: diphenhydrAMINE 50 mg/mL SDV 1mL IVP (13:53)
--- NOTE | 2024-04-30 13:55 | ED_ITS ---
Documented by User: Gricelda Lupemago, [facility] 04/30/24 17:51 HPI - Headache 2 General: Chief Complaint: Headache Stated Complaint: headache, n/v Time Seen by Provider: 04/30/24 13:25 History of Present Illness: Bird is a 33M with chronic abdominal pain presenting for severe headache and nausea that started yesterday and became worse today. He also notes diarrhea with small amount of blood mixed in, has not had any bowel movements yet today. He is being worked up by GI for chronic abdominal pain and recently had negative right upper quadrant ultrasound and HIDA scan. Has been on sucralfate and Protonix. Today he notes that his belly hurts all over but is not any worse than usual. He denies any substance use except for marijuana, denies frequent alcohol use. Associated symptoms: Reports nausea; Deny chest pain, fever(s) or vomiting Related Data Home Medications ?Medication ?Instructions ?Recorded ?Confirmed mupirocin 2 % topical ointment 1 applic topical BID NV N Skin 04/07/24 04/30/24 Irritation Previous Rx's ?Medication ?Instructions ?Recorded albuterol sulfate 90 mcg/actuation 2 inh inhalation Q4 H PRN shortness 04/02/24 aerosol inhaler of breath or wheezing #18 gr ams budesonide-formoterol HFA 80 1 inh inhalation BID #10. 2 grams 04/02/24 mcg-4.5 mcg/actuation aerosol inhaler (Symbicort) ondansetron HCl 4 mg tablet 4 mg PO Q6H PRN nausea and 04/07/24 vomiting #20 tabs pantoprazole 40 mg tablet,delayed 40 mg PO BID 6 weeks #84 tabs 04/15/24 release (Protonix) sucralfate 100 mg/mL oral 10 ml PO BID 8 weeks #1,120 mL 04/15/24 suspension promethazine 25 mg tablet 25 mg PO Q6H PRN nausea and 04/30/24 vomiting #20 tabs Allergies Allergy/AdvReac Type Severity Reaction Status Date / Time clindamycin Allergy Mild vomiting Verified 04/30/24 11:10 Review of Systems 2 Const: Reports: fatigue; Denies: fever(s) or chills Eyes: Denies: change in vision or blurry vision Card: Denies: chest pain or palpitations Resp: Denies: dyspnea or wheezing GI: Reports: abdominal pain, nausea and diarrhea; Denies: vomiting : Denies: difficulty urinating Neuro: Reports: headache(s); Denies: numbness in extremities, weakness in extremities or sensory changes PFSH ED 2 PFSH: Medical History Dental infection History of seizures Melanoma Rheumatoid arthritis Skin cancer (melanoma) Migraines Hypertension Surgical History History of dental surgery History of neck surgery removal of cyst History of hand surgery History of foot surgery tendon repair History of colonoscopy History of endoscopy Hx of appendectomy Family History Mother Cancer unknown S/P coronary artery stent placement Myocardial infarction Family/Other Cancer Paternal uncle-leukemia Other Bleeding disorder CAD (coronary artery disease) Chronic kidney disease (CKD) Diabetes Hyperlipidemia Hypertension Stroke Social History Smoking and tobacco/nicotine status: current every day tobacco/nicotine user cigarettes Packs smoked per day: 1 Years cigarettes smoked: 20 [ Other cigarette details: 1-2 ppd tries to stay under 1 ppd ] Second hand smoke exposure: Yes Alcohol intake: current Alcohol intake frequency: few times a month Substance/Drug Use: current Substance/Drug use frequency: daily Lives independently: Yes Marital status: Single Current occupational status: unemployed Special zahida needs: No Agree to transfusion: Yes Physical Exam 2 Const: COMMON NORMALS: patient oriented x3 GENERAL APPEARANCE: cooperative and anxious NUTRITIONAL APPEARANCE: overweight ORIENTATION/CONSCIOUSNESS: Yes awake, Yes oriented to person, Yes oriented to place and Yes oriented to time HENMT: COMMON NORMALS: normocephalic, atraumatic and moist oral mucous membranes HEAD & SCALP: normocephalic and atraumatic MOUTH: Normal oral and palatal mucosa present Eye: COMMON NORMALS: Equal, round and reactive pupils present, EOMs intact bilaterally and conjunctivae normal CONJUNCTIVA: Yes conjunctivae normal P UPIL: Yes Equal, round and reactive pupils present Neck/C-Spine: COMMON NORMALS: no meningeal signs Resp: COMMON NORMALS: normal respiratory effort, No use of accessory muscles and clear to auscultation bilaterally AUSCULTATION: clear to auscultation bilaterally Cardio: COMMON NORMALS: regular rate, regular rhythm and No murmurs present (Cardio) RATE: regular rate RHYTHM: regular rhythm GI: COMMON NORMALS: Normal to inspection, nondistended, normoactive bowel sounds present, Soft to palpation and non-tender PALPATION: Yes Soft to palpation Extremity: GENERAL: No calf tenderness Neuro: COMMON NORMALS: patient oriented x3, CN's II-XII intact bilaterally, moves all extremities, no focal motor deficits and no sensory deficits noted SENSORIUM/ORIENTATION: Yes oriented to person, Yes oriented to place and Yes oriented to time MENINGEAL SIGNS: Yes no meningeal signs and No nuccal rigidity SPEECH: speech normal MOTOR EXAM: 5/5 motor strength present throughout Course 2 Vital Signs: Vital signs: Vital Signs Temperature 97.4 F L 04/30/24 13:23 Pulse Rate 83 04/30/24 16:30 Respiratory Rate 17 04/30/24 13:23 Blood Pressure 109/56 04/30/24 16:30 Pulse Oximetry 96 04/30/24 16:30 Oxygen Delivery Me thod Room Air 04/30/24 14:00 [facility] - Headache Medical Decision Making Bird is a 33M with chronic abdominal pain presenting for severe headache, nausea and diarrhea. Vitals overall normal, mild leukocytosis of 12, mild hypokalemia, normal lipase. CT head without acute abnormalities, chest x-ray unremarkable. Patient was given Compazine, Benadryl, Toradol and potassium supplementation. Upon reevaluation, patient felt significantly better and reported his headache was nearly gone. [place] comfortable returning home. Patient has been following with GI for his chronic abdominal pain and has had extensive workup including negative right upper quadrant ultrasound and HIDA scan. We discussed the importance of following up with GI for his abdominal pain especially given the small amount of blood he reported in stool. We recommended follow-up with PCP for chronic migraine management. Lab Data 04/30/24 13:56 04/30/24 13:[address] 04/30/24 13:39 IMPRESSION: Negative head CT. Chest X-Ray 04/30/24 14:49 Impression: Old granulomatous disease. Laboratory Results WBC 12.24 10^3/uL (3.29-11.43) H 04/30/24 13:56 RBC 5.22 10^6/uL (3.85-5.65) 04/30/24 13:56 Hgb 15.60 g/dL (11.27-16.99) 04/30/24 13:56 Hct 46.2 % (37-53) 04/30/24 13:56 MCV 88.5 fl (82-101) 04/30/24 13:56 MCH 29.9 pg (27-33) 04/30/24 13:56 MCHC 33.8 g/dL (30-55) 04/30/24 13:56 RDW 12.1 % (12.1-15.1) 04/30/24 13:56 Plt Count 316 10^3/cmm (157-399) 04/30/24 13:56 MPV 11.1 fL (7.4-10.4) H 04/30/24 13:56 Neut % (Auto) 75.3 % 04/30/24 13:56 Lymph % (Auto) 17.6 % 04/30/24 13:56 [place] % (Auto) 6.3 % 04/30/24 13:56 Eos % (Auto) 0.2 % 04/30/24 13:56 Baso % (Auto) 0.2 % 04/30/24 13:56 Neut # (Auto) 9.20 10^3/uL (1.8-7.7) H 04/30/24 13:56 Lymph # (Auto) 2.2 10^3/uL (0.8-4.8) 04/30/24 13:56 [place] # (Auto) 0.8 10^3/uL (0.2-0.9) 04/30/24 13:56 Eos # (Auto) 0.0 10^3/uL (0.0-0.8) 04/30/24 13:56 Baso # (Auto) 0.0 10^3/uL (0.0-0.1) 04/30/24 13:56 Nucleated RBC % (auto) 0 % 04/30/24 13:56 Nucleated RBCs # 0.0 /100WBC 04/30/24 13:56 Sodium 139 mmol/L (136-145) 04/30/24 13:56 Potassium 3.4 mmol/L (3.5-5.1) L 04/30/24 13:56 Chloride 99 mmol/L (98-107) 04/30/24 13:56 Carbon Dioxide 27 mmol/L (22-29) 04/30/24 13:56 Anion Gap 16.4 (5-19) 04/30/24 13:56 BUN 11 mg/dL (6-20) 04/30/24 13:56 Creatinine 0.7 mg/dL (0.7-1.2) 04/30/24 13:56 GFR Calculation 129.9 mL/min (90-130) 04/30/24 13:56 Glucose 90 mg/dL (65-115) 04/30/24 13:56 Calculated Osmolality 287 mOsm/kg (285-295) 04/30/24 13:56 Calcium 9.5 mg/dL (8.5-10.5) 04/30/24 13:56 Total Bilirubin 1.0 mg/dL (0.15-1.2) 04/30/24 13:56 AST 24 U/L (0-40) 04/30/24 13:56 ALT 15 U/L (0-41) 04/30/24 13:56 Alkaline Phosphatase 124 U/L (40-130) 04/30/24 13:56 Troponin T Baseline < 6 ng/L (0-15) 04/30/24 13:56 Total Protein 7.1 g/dL (6.6-8.7) 04/30/24 13:56 Albumin 4.4 g/dL (3.5-5.2) 04/30/24 13:56 Globulin 2.7 g/dL (1.3-4.6) 04/30/24 13:56 Lipase 27 U/L (13-60) 04/30/24 13:56 Discharge Plan Discharge Patient Disposition: Home Clinical Impression: Migraine, Cannabis use disorder, Chronic abdominal pain Condition: Stable Prescriptions: New promethazine 25 mg tablet 25 mg PO Q6H PRN (Reason: nausea and vomiting) Qty: 20 0RF No Action pantoprazole [Protonix] 40 mg tablet,delayed release (DR/EC) 40 mg PO BID 42 Days Qty: 84 1RF sucralfate 100 mg/mL suspension 10 ml PO BID 56 Days Qty: 1120 0RF Rx Instructions: swish in mouth and swallow; use after food/drink albuterol sulfate 90 mcg/actuation HFA aerosol inhaler 2 inh INHALATION Q4H PRN (Reason: shortness of breath or wheezing) Qty: 18 0RF budesonide-formoterol [Symbicort] 80-4.5 mcg/actuation HFA aerosol inhaler 1 inh inhalation BID Qty: 10.2 0RF mupirocin 2 % ointment 1 applic topical BID PRN (Reason: Skin Irritation) ondansetron HCl 4 mg tablet 4 mg PO Q6H PRN (Reason: nausea and vomiting) Qty: 20 0RF Discharge Orders: Discharge ED (Routine); Ordered 04/30/24 Ordered By: Anirudh Guerrero Referrals: Monique Cosby DO [Primary Care Provider] - Discharge Diet: Usual diet Discharge Activity: Resume usual activity Patient Instructions: Abdominal Pain (ED), Opioid Safety, Pain Management Activity Restrictions/Additional Instructions: Thank you for choosing [facility] for your healthcare needs today. It is very important that you follow up as instructed or that you return to the Emergency Department should you have concerns or if your condition changes or worsens in any way. You were seen in the emergency room for headache. You also had some chronic abdominal pain. Recommend that you continue to follow-up with GI for the outpatient workup regarding your chronic abdominal pain and chronic diarrhea. You are given promethazine and you can use this as needed for nausea or vomiting or along with Tylenol or ibuprofen for headache if you have recurrent headaches. Follow-up with your primary care doctor as needed. Print Language: Maltese Coding Level of Care Code ED Inside Finisher for Chg Fwd Comment Resident physician note, not for billing?see ED attending note from same date Documented by User: Anirudh Guerrero DO 05/12/24 11:50 HPI - Headache 2 General: Chief Complaint: Headache Stated Complaint: headache, n/v Time Seen by Provider: 04/30/24 13:25 Related Data Home Medications ?Medication ?Instructions ?Recorded ?Confirmed mupirocin 2 % topical ointment 1 applic topical BID NV N Skin 04/07/24 04/30/24 Irritation Previous Rx's ?Medication ?Instructions ?Recorded albuterol sulfate 90 mcg/actuation 2 inh inhalation Q4 H PRN shortness 04/02/24 aerosol inhaler of breath or wheezing #18 gr ams budesonide-formoterol HFA 80 1 inh inhalation BID #10. 2 grams 04/02/24 mcg-4.5 mcg/actuation aerosol inhaler (Symbicort) ondansetron HCl 4 mg tablet 4 mg PO Q6H PRN nausea and 04/07/24 vomiting #20 tabs pantoprazole 40 mg tablet,delayed 40 mg PO BID 6 weeks #84 tabs 04/15/24 release (Protonix) sucralfate 100 mg/mL oral 10 ml PO BID 8 weeks #1,120 mL 04/15/24 suspension promethazine 25 mg tablet 25 mg PO Q6H PRN nausea and 04/30/24 vomiting #20 tabs Allergies Allergy/AdvReac Type Severity Reaction Status Date / Time clindamycin Allergy Mild vomiting Verified 04/30/24 11:10 PFSH ED 2 PFSH: Medical History Dental infection History of seizures Melanoma Rheumatoid arthritis Skin cancer (melanoma) Migraines Hypertension Surgical History History of dental surgery History of neck surgery removal of cyst History of hand surgery History of foot surgery tendon repair History of colonoscopy History of endoscopy Hx of appendectomy Family History Mother Cancer unknown S/P coronary artery stent placement Myocardial infarction Family/Other Cancer Paternal uncle-leukemia Other Bleeding disorder CAD (coronary artery disease) Chronic kidney disease (CKD) Diabetes Hyperlipidemia Hypertension Stroke Social History Smoking and tobacco/nicotine status: current every day tobacco/nicotine user cigarettes Packs smoked per day: 1 Years cigarettes smoked: 20 [ Other cigarette details: 1-2 ppd tries to stay under 1 ppd ] Second hand smoke exposure: Yes Alcohol intake: current Alcohol intake frequency: few times a month Substance/Drug Use: current Substance/Drug use frequency: daily Lives independently: Yes Marital status: Single Current occupational status: unemployed Special zahida needs: No Agree to transfusion: Yes Course 2 Vital Signs: Vital signs: Vital Signs Temperature 97.4 F L 04/30/24 13:23 Pulse Rate 83 04/30/24 16:30 Respiratory Rate 17 04/30/24 13:23 Blood Pressure 109/56 04/30/24 16:30 Pulse Oximetry 96 04/30/24 16:30 Oxygen Delivery Me thod Room Air 04/30/24 14:00 MDM - Headache Medical Decision Making Bird is a 33M with chronic abdominal pain presenting for severe headache, nausea and diarrhea. Vitals overall normal, mild leukocytosis of 12, mild hypokalemia, normal lipase. CT head without acute abnormalities, chest x-ray unremarkable. Patient was given Compazine, Benadryl, Toradol and potassium supplementation. Upon reevaluation, patient felt significantly better and reported his headache was nearly gone. [place] comfortable returning home. Patient has been following with GI for his chronic abdominal pain and has had extensive workup including negative right upper quadrant ultrasound and HIDA scan. We discussed the importance of following up with GI for his abdominal pain especially given the small amount of blood he reported in stool. We recommended follow-up with PCP for chronic migraine management. Patient seen and evaluated in conjunction with Dr. Norman. Agree with history assessment and plan. Lab Data 04/30/24 13:56 04/30/24 13:[address] 04/30/24 13:39 IMPRESSION: Negative head CT. Chest X-Ray 04/30/24 14:49 Impression: Old granulomatous disease. Laboratory Results WBC 12.24 10^3/uL (3.29-11.43) H 04/30/24 13:56 RBC 5.22 10^6/uL (3.85-5.65) 04/30/24 13:56 Hgb 15.60 g/dL (11.27-16.99) 04/30/24 13:56 Hct 46.2 % (37-53) 04/30/24 13:56 MCV 88.5 fl (82-101) 04/30/24 13:56 MCH 29.9 pg (27-33) 04/30/24 13:56 MCHC 33.8 g/dL (30-55) 04/30/24 13:56 RDW 12.1 % (12.1-15.1) 04/30/24 13:56 Plt Count 316 10^3/cmm (157-399) 04/30/24 13:56 MPV 11.1 fL (7.4-10.4) H 04/30/24 13:56 Neut % (Auto) 75.3 % 04/30/24 13:56 Lymph % (Auto) 17.6 % 04/30/24 13:56 [place] % (Auto) 6.3 % 04/30/24 13:56 Eos % (Auto) 0.2 % 04/30/24 13:56 Baso % (Auto) 0.2 % 04/30/24 13:56 Neut # (Auto) 9.20 10^3/uL (1.8-7.7) H 04/30/24 13:56 Lymph # (Auto) 2.2 10^3/uL (0.8-4.8) 04/30/24 13:56 [place] # (Auto) 0.8 10^3/uL (0.2-0.9) 04/30/24 13:56 Eos # (Auto) 0.0 10^3/uL (0.0-0.8) 04/30/24 13:56 Baso # (Auto) 0.0 10^3/uL (0.0-0.1) 04/30/24 13:56 Nucleated RBC % (auto) 0 % 04/30/24 13:56 Nucleated RBCs # 0.0 /100WBC 04/30/24 13:56 Sodium 139 mmol/L (136-145) 04/30/24 13:56 Potassium 3.4 mmol/L (3.5-5.1) L 04/30/24 13:56 Chloride 99 mmol/L (98-107) 04/30/24 13:56 Carbon Dioxide 27 mmol/L (22-29) 04/30/24 13:56 Anion Gap 16.4 (5-19) 04/30/24 13:56 BUN 11 mg/dL (6-20) 04/30/24 13:56 Creatinine 0.7 mg/dL (0.7-1.2) 04/30/24 13:56 GFR Calculation 129.9 mL/min (90-130) 04/30/24 13:56 Glucose 90 mg/dL (65-115) 04/30/24 13:56 Calculated Osmolality 287 mOsm/kg (285-295) 04/30/24 13:56 Calcium 9.5 mg/dL (8.5-10.5) 04/30/24 13:56 Total Bilirubin 1.0 mg/dL (0.15-1.2) 04/30/24 13:56 AST 24 U/L (0-40) 04/30/24 13:56 ALT 15 U/L (0-41) 04/30/24 13:56 Alkaline Phosphatase 124 U/L (40-130) 04/30/24 13:56 Troponin T Baseline < 6 ng/L (0-15) 04/30/24 13:56 Total Protein 7.1 g/dL (6.6-8.7) 04/30/24 13:56 Albumin 4.4 g/dL (3.5-5.2) 04/30/24 13:56 Globulin 2.7 g/dL (1.3-4.6) 04/30/24 13:56 Lipase 27 U/L (13-60) 04/30/24 13:56 All radiology interpretation(s) finalized by discharge Discharge Plan Discharge Patient Disposition: Home Clinical Impression: Migraine, Cannabis use disorder, Chronic abdominal pain Condition: Stable Prescriptions: New promethazine 25 mg tablet 25 mg PO Q6H PRN (Reason: nausea and vomiting) Qty: 20 0RF No Action pantoprazole [Protonix] 40 mg tablet,delayed release (DR/EC) 40 mg PO BID 42 Days Qty: 84 1RF sucralfate 100 mg/mL suspension 10 ml PO BID 56 Days Qty: 1120 0RF Rx Instructions: swish in mouth and swallow; use after food/drink albuterol sulfate 90 mcg/actuation HFA aerosol inhaler 2 inh INHALATION Q4H PRN (Reason: shortness of breath or wheezing) Qty: 18 0RF budesonide-formoterol [Symbicort] 80-4.5 mcg/actuation HFA aerosol inhaler 1 inh inhalation BID Qty: 10.2 0RF mupirocin 2 % ointment 1 applic topical BID PRN (Reason: Skin Irritation) ondansetron HCl 4 mg tablet 4 mg PO Q6H PRN (Reason: nausea and vomiting) Qty: 20 0RF Discharge Orders: Discharge ED (Routine); Ordered 04/30/24 Ordered By: Anirudh Guerrero Referrals: Monique Cosby DO [Primary Care Provider] - Discharge Diet: Usual diet Discharge Activity: Resume usual activity Patient Instructions: Abdominal Pain (ED), Opioid Safety, Pain Management Activity Restrictions/Additional Instructions: Thank you for choosing [facility] for your healthcare needs today. It is very important that you follow up as instructed or that you return to the Emergency Department should you have concerns or if your condition changes or worsens in any way. You were seen in the emergency room for headache. You also had some chronic abdominal pain. Recommend that you continue to follow-up with GI for the outpatient workup regarding your chronic abdominal pain and chronic diarrhea. You are given promethazine and you can use this as needed for nausea or vomiting or along with Tylenol or ibuprofen for headache if you have recurrent headaches. Follow-up with your primary care doctor as needed. Print Language: Maltese Coding Level of Care Code ED Inside Finisher for Chg Fwd Comment Resident physician note, not for billing?see ED attending note from same date
[2024-04-30 14:00] VITALS: BP 152/111; PULSE 72; O2SAT 96
--- NOTE | 2024-04-30 14:11 | PC.PHAR ---
PATIENT STATES HE TAKES HYDROCHLOROTHIAZIDE THAT HE HAD FILLED IN [place] AND A FEW OTHER MEDS. PATIENT WASN'T SURE WHEN THE LAST TIME HE TOOK IT WAS OR THE NAMES OF HIS OTHER MEDICATIONS.
--- NOTE | 2024-04-30 14:14 | PC.PHAR ---
PHARMACY STATES HE HAS MEDICATION CALLED IN FROM DR. LUCIA AND DR. LOJA BUT PATIENT NEVER PICKED UP .
[2024-04-30 14:15] LABS: Basophils % 0.2 %; Eosinophils % 0.2 %; Hematocrit 46.2 % (37-53); Lymphocytes # 2.2 10^3/uL (0.8-4.8); Lymphocytes % 17.6 %; Mean Corpuscular HGB Conc 33.8 g/dL (30-55); Mean Corpuscular Hemoglobin 29.9 pg (27-33); Mean Corpuscular Volume 88.5 fl (82-101); Mean Platelet Volume 11.1 fL (7.4-10.4); Monocytes # 0.8 10^3/uL (0.2-0.9); Monocytes % 6.3 %; Neutrophils % 75.3 %; Nucleated Red Blood Cells % 0 %; Platelet Count 316 10^3/cmm (157-399); Red Blood Count 5.22 10^6/uL (3.85-5.65); Red Cell Distribution Width 12.1 % (12.1-15.1); White Blood Count 12.24 10^3/uL (3.29-11.43)
[2024-04-30 14:26] LABS: Alanine Aminotransferase 15 U/L (0-41); Albumin Level 4.4 g/dL (3.5-5.2); Alkaline Phosphatase 124 U/L (40-130); Anion Gap 16.4 (5-19); Aspartate Amino Transferase 24 U/L (0-40); Blood Urea Nitrogen 11 mg/dL (6-20); Calcium 9.5 mg/dL (8.5-10.5); Carbon Dioxide 27 mmol/L (22-29); Chloride 99 mmol/L (98-107); Globulin 2.7 g/dL (1.3-4.6); Glomerular Filtration Rate 129.9 mL/min (90-130); Glucose 90 mg/dL (65-115); Lipase 27 U/L (13-60); Osmolality Calculated 287 mOsm/kg (285-295); Potassium 3.4 mmol/L (3.5-5.1); Sodium 139 mmol/L (136-145); Total Protein 7.1 g/dL (6.6-8.7)
--- NOTE | 2024-04-30 14:49 | XR_ITS ---
WS: [id number] Portable AP upright chest, 04/30/2024 Clinical Data: chest heaviness Comparison: Portable chest, 04/02/2024 Findings: No nodules, masses or effusions are seen. The heart is normal. The pulmonary vascularity is not increased. No pneumonia or pneumothorax is seen. There are calcified granulomas in both marva. XR/XR chest 1V portable [id number] Impression: Old granulomatous disease.
[2024-04-30 15:11] LABS: Troponin(5th) Baseline < 6 ng/L (0-15)
[2024-04-30 15:35] VITALS: BP 102/57; PULSE 67; O2SAT 94
[2024-04-30] MEDS: potassium chloride ER 20 mEq Tablet 40 MEQ PO (16:20)
[2024-04-30 16:30] VITALS: BP 109/56; PULSE 83; O2SAT 96
== END 2024-04-30 16:32 | disposition home or self-care (01) ==
PROVIDERS: Family Medicine; Emergency Provider Physician Assistant Medical; PCP Dermatology
DX: G43.909 Migraine, unspecified, not intractable, without status migrainosus (principal); F12.90 Cannabis use, unspecified, uncomplicated; R10.9 Unspecified abdominal pain; F17.210 Nicotine dependence, cigarettes, uncomplicated; Z85.820 Personal history of malignant melanoma of skin; I25.10 Atherosclerotic heart disease of native coronary artery without angina pectoris
CPT/HCPCS: 70450; 71045; 80053; 83690; 84484; 85025; 93005; 96374; 96375; 99285; J0780; J1200; J1885

== ENCOUNTER → 2024-05-20 15:02 | Outpatient (BNVA) | payer MEDICAID, SELFPAY | PROVIDERS: PCP Dermatology; Visit Provider Emergency Medicine | DX: R05.9 Cough, unspecified (principal) | CPT/HCPCS: 71046 ==

== ENCOUNTER 2024-07-27 01:51 | Emergency (ER) | payer MEDICAID, SELFPAY ==
[2024-07-27 01:57] VITALS: BP 167/114; PULSE 70; RESP 16; TEMP 36.4; O2SAT 100; BMI 26.4
--- NOTE | 2024-07-27 02:00 | ED_ITS ---
HPI - Dental/Oral General: Chief complaint: Dental/Oral Stated complaint: Tooth Ache Time Seen by Provider: 07/27/24 01:53 Source: patient Mode of arrival: ambulatory Limitations: no limitations History of Present Illness: 33-year-old male states been having left lower dental pain going on for 2 days states that sharp pain rates it an 8 out of 10 he denies any worsening improving factors. Denies any trismus. Associated symptoms: Denies fever(s) Related Data Previous Rx's ?Medication ?Instructions ?Recorded albuterol sulfate 90 mcg/actuation 2 inh inhalation Q4 H PRN shortness 04/02/24 aerosol inhaler of breath or wheezing #18 gr ams budesonide-formoterol HFA 80 1 inh inhalation BID #10. 2 grams 04/02/24 mcg-4.5 mcg/actuation aerosol inhaler (Symbicort) pantoprazole 40 mg tablet,delayed 40 mg PO BID 6 weeks #84 tabs 04/15/24 release (Protonix) sucralfate 100 mg/mL oral 10 ml PO BID 8 weeks #1,120 mL 04/15/24 suspension promethazine 25 mg tablet 25 mg PO Q6H PRN nausea and 04/30/24 vomiting #20 tabs amoxicillin 875 mg-potassium 1 tab PO BID 10 days #20 tabs 05/20/24 clavulanate 125 mg tablet nbxcqqrgexqfcto-hygszlrfgwcgtfl-KO 7.5 ml PO Q6H PRN c old symptoms 05/20/24 2 mg-30 mg-10 mg/5 mL oral syrup #160 mL (Bromfed DM) dexamethasone 2 mg tablet 6 mg (3 x 2 mg) PO DAILY 8 d ays 05/20/24 #24 tabs guaifenesin 600 mg tablet, 600 mg PO Q12H #20 tabs extended release 12 hr cephalexin 500 mg capsule 500 mg PO TID 7 days #21 cap s 07/27/24 Allergies Allergy/AdvReac Type Severity Reaction Status Date / Time clindamycin Allergy Mild vomiting Verified 05/20/24 14:37 Review of Systems Const: Denies: fever(s), chills, body aches or change in appetite ENMT: Reports: mouth pain; Denies: throat pain or dental pain Card: Denies: chest pain Resp: Denies: dyspnea GI: Denies: abdominal pain, nausea, vomiting or diarrhea Musc: Denies: neck pain or back pain Skin/Breast: Denies: rash Neuro: Denies: headache(s) PFSH ED PFSH: Medical History Dental infection History of seizures Melanoma Rheumatoid arthritis Skin cancer (melanoma) Migraines Hypertension Surgical History History of dental surgery History of neck surgery removal of cyst History of hand surgery History of foot surgery tendon repair History of colonoscopy History of endoscopy Hx of appendectomy Family History Mother Cancer unknown S/P coronary artery stent placement Myocardial infarction Family/Other Cancer Paternal uncle-leukemia Other Bleeding disorder CAD (coronary artery disease) Chronic kidney disease (CKD) Diabetes Hyperlipidemia Hypertension Stroke Social History Smoking and tobacco/nicotine status: current every day tobacco/nicotine user cigarettes Packs smoked per day: 1 Years cigarettes smoked: 20 [ Other cigarette details: 1-2 ppd tries to stay under 1 ppd ] Second hand smoke exposure: Yes Alcohol intake: current Alcohol intake frequency: few times a month Substance/Drug Use: current Substance/Drug use frequency: daily Lives independently: Yes Marital status: Single Current occupational status: unemployed Special zahida needs: No Agree to transfusion: Yes Physical Exam Const: COMMON NORMALS: no acute distress, patient oriented x3 and healthy appearing HENMT: COMMON NORMALS: normocephalic and atraumatic HEAD & SCALP: normocephalic and atraumatic OTHER: tenderness over left lower molar no abscess or trismus Eye: COMMON NORMALS: conjunctivae normal CONJUNCTIVA: Yes conjunctivae normal Neck/C-Spine: COMMON NORMALS: full ROM and supple Chest: COMMONS NORMALS: normal inspection of the chest Resp: COMMON NORMALS: normal respiratory effort Cardio: COMMON NORMALS: regular rate RATE: regular rate Extremity: COMMON NORMALS: normal to inspection and full ROM Neuro: COMMON NORMALS: patient oriented x3, moves all extremities and no focal motor deficits Psych: COMMON NORMALS: mental status grossly normal, Normal thought process present and cooperative THOUGHT PROCESS: Normal thought process present Skin: COMMON NORMALS: no rashes or lesions noted and no wounds GENERAL SKIN EXAM: no rashes or lesions noted Procedures Nerve Block Nerve Block 1: Time out performed: Yes Local Anesthetic: bupivacaine 0.5% Amount of anesthesia used (mL): 6 Side: left Intraoral Nerve Block: inferior alveolar Procedure Successful: Yes Patient Tolerated Procedure: well Complications: none Course Vital Signs: Vital signs: Vital Signs Temperature 97.6 F 07/27/24 01:57 Pulse Rate 74 07/27/24 02:04 Respiratory Rate 16 07/27/24 02:04 Blood Pressure 153/113 07/27/24 02:04 Pulse Oximetry 97 07/27/24 02:04 Oxygen Delivery Me thod Room Air 07/27/24 02:04 MDM - Dental/Oral Medical Decision Making Patient presents for dental pain did do a dental block he feels much improved we will place him on Keflex he is to follow-up with dentist return if worsening. No radiology studies performed this visit Discharge Plan Discharge Patient Disposition: Home Clinical Impression: Pain, dental Condition: Stable Prescriptions: New cephalexin 500 mg capsule 500 mg PO TID 7 Days Qty: 21 0RF No Action pantoprazole [Protonix] 40 mg tablet,delayed release (DR/EC) 40 mg PO BID 42 Days Qty: 84 1RF sucralfate 100 mg/mL suspension 10 ml PO BID 56 Days Qty: 1120 0RF Rx Instructions: swish in mouth and swallow; use after food/drink amoxicillin-pot clavulanate 875-125 mg tablet 1 tab PO BID 10 Days Qty: 20 0RF dexamethasone 2 mg tablet 6 mg PO DAILY 8 Days Qty: 24 0RF guaifenesin 600 mg tablet extended release 12hr 600 mg PO Q12H Qty: 20 0RF xlzietxhdglccli-xagqsxdek-TS [Bromfed DM] 2-30-10 mg/5 mL syrup 7.5 ml PO Q6H PRN (Reason: cold symptoms) Qty: 160 0RF albuterol sulfate 90 mcg/actuation HFA aerosol inhaler 2 inh INHALATION Q4H PRN (Reason: shortness of breath or wheezing) Qty: 18 0RF budesonide-formoterol [Symbicort] 80-4.5 mcg/actuation HFA aerosol inhaler 1 inh inhalation BID Qty: 10.2 0RF promethazine 25 mg tablet 25 mg PO Q6H PRN (Reason: nausea and vomiting) Qty: 20 0RF Discharge Orders: Discharge ED (Routine); Ordered 07/27/24 Ordered By: Chaka Escobar Referrals: Monique Cosby DO [Physician] - Discharge Diet: Advance as tolerated Discharge Activity: Resume usual activity Patient Instructions: Toothache (ED) Print Language: Kazakh Coding Level of Care Code ED Senior Accounting Analyst for Mirza Fleming
[2024-07-27] MEDS: BUPivacaine 0.5% INJ 10 mL INJECTION (02:03)
[2024-07-27 02:04] VITALS: BP 153/113; PULSE 74; RESP 16; O2SAT 97
[2024-07-27] MEDS: naproxen 500 mg Tablet PO (02:26)
--- NOTE | 2024-07-27 02:27 | PC.NURSE ---
PROVIDER MADE AWARE OF PT ELEVATED BP, GAVE VERBAL ORDER FOR D/C TO CONTINUE.
[2024-07-27 02:37] VITALS: BP 176/119; PULSE 86; RESP 14; O2SAT 99
== END 2024-07-27 02:34 | disposition home or self-care (01) ==
PROVIDERS: Emergency Provider Emergency Medicine
DX: K08.89 Other specified disorders of teeth and supporting structures (principal)
CPT/HCPCS: 99284; J3490; J9999

== ENCOUNTER 2025-02-01 22:45 | Emergency (ER) | payer MEDICAID, SELFPAY ==
[2025-02-01 22:50] VITALS: BP 143/76; PULSE 68; RESP 20; TEMP 36.6; O2SAT 96; BMI 27.2
--- NOTE | 2025-02-01 22:53 | ECG_ITS ---
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
--- OUTSIDE RECORDS SUMMARY | 2025-02-01 22:56 | XMS_ITS | Encounter Summary ---
Author Organization [facility] Address [address] [place] [address] Care Team Providers Care Discharge Specialist Name Role Phone Alex Friedman MD Primary Care Provider [phone] Encounter Details Date Type Department Care Team ([facility] Contact Info) Description 01/26/2025 External Device Data [place] ABSTRACTION Provider, Abstract NO ADDRESS ON FILE Social History Tobacco Use Types Packs/Day Years Used Date Smoking Tobacco: Every Day Cigarettes Smokeless Tobacco: Former Alcohol Use Standard Drinks/Week Comments Yes 0 (1 standard drink = 0.6 oz pur e alcohol) occasionally Feeling Safe Answer Date Recorded Are you in a relationship wi th someone who hurts you emotionally and/or physically? 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
--- OUTSIDE RECORDS SUMMARY | 2025-02-01 22:56 | XMS_ITS | Encounter Summary ---
Author Organization [facility] Address 

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
--- OUTSIDE RECORDS SUMMARY | 2025-02-01 22:57 | XMS_ITS | Data Portability ---
Author Organization [facility] Duane Rojas [facility] [place] Nikki Gentile, [facility] Address [address] [phone] Assessment No assessment recorded. Plan of Treatment Reminders Order Date Submit Date Provider Last Modified By Organization Details Last Modified Time Details Appointments None recorded. Lab rapid flu (A+B), PCR 2024 025 [email or web address] 47 [facility] ([facility]), [address] [place] [address], [id number], 22:08:15 Referral None recorded. Procedures None recorded. Surgeries None recorded. Imaging None recorded. Medication Orders prednisone 20 mg tablet 2024 025 [facility], [address], [address], 15:43:32 Patient TargetsNo targets recorded. Patient InstructionsNo instructions recorded. Reason for Referral None Reported. Results Created Date Observation Date Name Description Value Unit Range Abnormal Flag Note LastModifiedBy Organization Detail LastModifiedTime 05/17/1905/17/2024 rapid flu (A+B) , PCR Influenza A positi ve Not Available [facility] ([facility]) [address] [place] [address], [id number], 05/17/2024 15:10:16 05/17/19 25 05/17/2024 rapid flu (A+B) , PCR Influenza B negati ve Not Available [facility] ([facility]) [address] [place] [address], [phone], 05/17/2024 15:10:16 Result Notes None recorded. Medical Equipment None Reported. Allergies Allergen ID Allergen Name Allergen Category Reaction Reaction Severity Criticality Documentation Date Start Date Code Code System Note Provider Name and Address Organization Details Recorded Time 84245 clindamyc in Not available Not available Not available Not available 05/17/2024 2582 RxNorm Guera Tolliver [facility] 15:03:04 Medications Name Sig Start Date Stop Date Status Note LastModified by Organization Details LastModified Time prednisone 20 mg tablet Take 1 tablet every day by oral route for 7 days. 2024 active Not Available Not Available Not Avai lable ProAir HFA 90 mcg/actuatio n aerosol inhaler Inhale 2 puffs every 4 hours by inhalation route. active Not Available Not Available No t Available Vitals Date Recorded Body weight Oxygen saturation Oxygen saturation in Arterial blood by Pulse oximetry Heart rate Body temperature Systolic And Diastolic Provider Name and Address Organization Details Last Updated DateTime 29087.2 9 g 98 % 98 % 88 /min 98.3 [degF] 160/90 mm[Hg] Guera Tolliver [facility] 15:10:00 Social History None recorded. Functional Status None recorded. Mental Status None recorded. Family History Nothing Reported. Medical History No medical history recorded. Past Encounters Encounter ID Performer Location Encounter Start Date Encounter Closed Date Diagnosis/Indication Diagnosis SNOMED-CT Code Diagnosis ICD10 Code Diagnosis IMO Codes Diagnosis Note [id number] Wagner Hall DO [facility] ([facility]) [address] [place] [address] 05/17/2024 14:48:42 05/17/2024 15:49:05 Cough 08563155 R05.9 Influenza caused by Influenza A virus 696591219 J09.X2 I counseled on + rapid flu test today as above. counseled on dx, treatment options, expectatio ns.rest, increase fluids, nsaids prn, daily vitamins. stay home until fever free for 24-48hrs with improved symptoms. Return to office with no improvemen t or any problems. Go to ER with severe worsening or severe problems. Health Concerns Section Related Observation LastModified by Organization Detai ls LastModified Time None Recorded Concern Status LastModified by Organization Details LastModified Time None Recorded Advance Directives Directive None Recorded Payers Insurance Date Sequence Insurance Name Policy Number Policy Correa Covered Member ID Correa Member ID Guarantor Name 05/25/2024 1 [facility] (MEDICAID HMO) Bird Ortiz [id number] Bird Ortiz 05/17/2024 1 [place] Bird Ortiz [id number] Bird Ortiz 05/25/2024 [facility] (MEDICAID HMO) Bird Ortiz [id number] Bird Ortiz Notes Date Note Type Note Provider Name and Address Organization Details Recorded Time 05/17/2024 text/html ROS as noted in the HPI walk inx 3 days cough, nasal congestion, [place], body aches, fever, V/D Wagner Hall, DO [address] [place] [address], [phone], [facility] 05/23/2024 16:18:35
--- OUTSIDE RECORDS SUMMARY | 2025-02-01 22:57 | XMS_ITS | Patient Health Record ---
Author Organization [facility] Address [address] [place] [phone] Support Name Relationship Address Phone Bird Ortiz Guarantor Unknown Allergies No Known Allergies Reason For Referral No Information Medications Medication SIG (Take, Route, Frequency, Duration) Notes Start Date End Date Status Montelukast Sodium 10 MG Tablet Take 1 tablet orally At bedtime Oral At bedtime Active Dicyclomine HCl 20 MG Tablet Take 1 tablet orally once a day Oral once a day Active Omeprazole 20 mg TABLET,DISINTEGRATING, DELAYED RELEASE Take 1 tablet,disintegrat ing, delayed release orally once a day ORAL once a day *Pick strength-form from [facility]STAR for eRX* Active Clotrimazole 1% Cream Apply 1 topically apply to infected area at bedtime External apply to infected area at bedtime Active ProAir HFA 108 (90 Base) MCG/ACT Aerosol Solution Take 2 hfa aerosol with adapter (gram) puff(s) As Needed Inhalation As Needed Active lamoTRIgine 25 MG Tablet Take 2 tablet orally once a day in the morning Oral once a day in the morning Active Levocetirizine Dihydrochloride 5 MG Tablet Take 1 tablet orally hs as needed for ALLERGIES Oral hs as needed for ALLERGIES 02/04/2019 Active Social History Social History Additional Details Category Social Info Options Details Migrated Social History Migrated Social History PTSD, Recovering Alcoholic , SMOKER Problems Problem Type SNOMED Code ICD Code Onset Dates Problem Status W/U Status Risk Notes Problem Chronic migraine without aura, non-refractory (disorder) (165331705834792) Migraine without aura, not intractable, without status migrainosus (G43.009) 12/23/19 19 Active confirmed Problem Refractory migraine (345038244) Migraine, unspecified, intractable, without status migrainosus (G43.919) 01/20/20 19 Active confirmed Problem Allergic rhinitis caused by pollen (disorder) (93819944) Allergic rhinitis due to pollen (J30.1) 08/25/19 Active confirmed Problem Seasonal allergic rhinitis (119605029) Other seasonal allergic rhinitis (J30.2) 08/25/19 Active confirmed Problem Allergic rhinitis caused by animal hair and dander (104505339452842) Allergic rhinitis due to animal (cat) (dog) hair and dander (J30.81) 06/01/19 Active confirmed Problem Allergic rhinitis (59536199) Other allergic rhinitis (J30.89) 06/01/19 Active confirmed Problem Mild intermittent asthma (011517563) Mild intermittent asthma, uncomplicated (J45.20) 08/25/19 Active confirmed Problem Uncomplicated mild persistent asthma (318884759) Mild persistent asthma, uncomplicated (J45.30) 06/01/19 Active confirmed Problem Nasal congestion (16466672) Nasal congestion (R09.81) 08/25/19 Active confirmed Problem Postnasal drip (29347547) Postnasal drip (R09.82) 02/05/20 Active confirmed Plan Of Treatment No Information Insurance Providers Payer Name Payer Address Payer Phone Subscriber Number Group Number Insured Name Patient Relationship to Insured Coverage Start Date Coverage End Date [facility] [address] [address] [place], [place] [id number] Bird Ortiz Self - patient is the insured 4 Medical (General) History Surgical History Surgery Date(Month/Year) Cyst removed from the neck Left Foot surgery
--- NOTE | 2025-02-01 23:16 | XRR_ITS ---
PROCEDURE INFORMATION: Exam: XR Chest Exam date and time: 02/01/2025 11:24 PM Age: 34 years old Clinical indication: Shortness of breath; Additional info: SOB TECHNIQUE: Imaging protocol: Radiologic exam of the chest. Views: 1 view. COMPARISON: CR XR chest 2V* [id number] 05/20/2024 3:04 PM FINDINGS: Lungs: Subtle bibasilar interstitial prominence, which could be artifactual or represent a component of interstitial pneumonia/viral etiology. Correlate with patient history/physical exam. No confluent consolidation. Pleural spaces: Unremarkable. No pleural effusion. No pneumothorax. Heart/Mediastinum: Unremarkable. No cardiomegaly. Bones/joints: Unremarkable. XR/XR chest 1V portable [id number] IMPRESSION: Subtle bibasilar interstitial prominence, which could be artifactual or represent a component of interstitial pneumonia/viral etiology. Correlate with patient history/physical exam.
--- NOTE | 2025-02-01 23:43 | W.ED.SOB ---
HPI - SOB/Dyspnea General: Chief Complaint: Shortness of Breath/Dyspnea Stated Complaint: Body Pain, Mal[place] Cancer Time Seen by Provider: 02/01/25 23:14 Source: patient and family Mode of arrival: ambulatory Limitations: no limitations History of Present Illness: HPI Narrative: Patient is a 34-year-old male who presents to the ED today along with his significant other for main concern of shortness of breath. Significant other states that shortness of breath has been an ongoing and progressive issue over the past 8 or 9 months. Patient states he does smoke cigarettes and marijuana but states he quit today. He has several chronic issues that he mentions including generalized pain and muscle aches-stating my whole body snaps and cracks . He at some point in [place] several years ago had a spot of melanoma removed and he is convinced he has metastatic cancer. Patient has been seen by multiple medical providers. He thinks it could all be related to Lyme Disease, [place] Spotted Fever, and Alpha Gal (states he was diagnosed with all 3 of these at the same time a while ago). He states his shortness of breath is treated with inhalers and steroids but these do not seem to be helping. He states he has an appointment with pulmonology on but could not wait until this appointment. He arrives satting 98% on room air. No hemoptysis. No risk factors for PE. States he does not trust medical providers because they missed his appendicitis for seven years. MD elicited complaint: shortness of breath and cough Onset (ago): month(s) Timing: constant Severity: moderate Exacerbating factors: nothing Relieving factors: nothing Associated symptoms: Reports chest congestion and chest pain; Deny dizziness, palpitations or vomiting Treatment prior to arrival: none Related Data Previous Rx's ?Medication ?Instructions ?Recorded albuterol sulfate 90 mcg/actuation 2 inh inhalation Q4H PRN shortness 04/02/24 aerosol inhaler of breath or wheezing #18 grams budesonide-formoterol HFA 80 1 inh inhalation BID #10.2 grams 04/02/24 mcg-4.5 mcg/actuation aerosol inhaler (Symbicort) pantoprazole 40 mg tablet,delayed 40 mg PO BID 6 weeks #84 tabs 04/15/24 release (Protonix) sucralfate 100 mg/mL oral 10 ml PO BID 8 weeks #1,120 mL 04/15/24 suspension promethazine 25 mg tablet 25 mg PO Q6H PRN nausea and 04/30/24 vomiting #20 tabs amoxicillin 875 mg-potassium 1 tab PO BID 10 days #20 tabs 05/20/24 clavulanate 125 mg tablet uezknmvqobwnfpc-wddwmdwvlevfgjq-CF 7.5 ml PO Q6H PRN cold symptoms 05/20/24 2 mg-30 mg-10 mg/5 mL oral syrup #160 mL (Bromfed DM) dexamethasone 2 mg tablet 6 mg (3 x 2 mg) PO DAILY 8 days 05/20/24 #24 tabs guaifenesin 600 mg tablet, 600 mg PO Q12H #20 tabs 05/20/24 extended release 12 hr Allergies Allergy/AdvReac Type Severity Reaction Status Date / Time clindamycin Allergy Mild vomiting Verified 05/20/24 14:37 Alpha-Gal Allergy ALGY-Anaphy Verified 02/01/25 23:03 (Rfyrxwjxc-Pllss-6,3-Gala laxis Review of Systems Const: Reports: body aches (diffuse), fatigue (chronic) and malaise (chronic) Eyes: Denies: change in vision, blurry vision, photophobia, floaters or seeing flashes ENMT: Reports: throat pain and odynophagia; Denies: nasal discharge, nasal congestion or sinus pain Card: Reports: chest pain; Denies: palpitations, irregular heart rhythm, edema or swelling of feet/ankles Resp: Reports: dyspnea, non-productive cough, wheezing, pain on inspiration and chest congestion; Denies: stridor GI: Denies: vomiting or diarrhea : Denies: flank pain or dysuria Musc: Reports: neck pain, back pain and joint pain Skin/Breast: Denies: rash Neuro: Denies: headache(s), numbness in extremities, weakness in extremities, sensory changes or dizziness PFSH ED PFSH: Medical History Dental infection History of seizures Melanoma Rheumatoid arthritis Skin cancer (melanoma) Migraines Hypertension Surgical History History of dental surgery History of neck surgery removal of cyst History of hand surgery History of foot surgery tendon repair History of colonoscopy History of endoscopy Hx of appendectomy Family History Mother Cancer unknown S/P coronary artery stent placement Myocardial infarction Family/Other Cancer Paternal uncle-leukemia Other Bleeding disorder CAD (coronary artery disease) Chronic kidney disease (CKD) Diabetes Hyperlipidemia Hypertension Stroke Social History Smoking and tobacco/nicotine status: current every day tobacco/nicotine user cigarettes Packs smoked per day: 1 Years cigarettes smoked: 20 [ Other cigarette details: 1-2 ppd tries to stay under 1 ppd ] Second hand smoke exposure: Yes Alcohol intake: current Alcohol intake frequency: few times a month Substance/Drug Use: current Substance/Drug use frequency: daily Lives independently: Yes Marital status: Single Current occupational status: unemployed Special zahida needs: No Agree to transfusion: Yes Physical Exam Const: COMMON NORMALS: patient oriented x3, no limitations, alert and well nourished GENERAL APPEARANCE: cooperative ORIENTATION/CONSCIOUSNESS: Yes awake, Yes oriented to person, Yes oriented to place and Yes oriented to time OTHER: pt seems somewhat exaggerated in his presentation HENMT: COMMON NORMALS: normocephalic and atraumatic HEAD & SCALP: normal to inspection, normocephalic and atraumatic MOUTH: Normal oral and palatal mucosa present, lip normal, tongue normal and Normal salivary glands and ducts present THROAT: posterior oropharynx normal, tonsils normal and uvula midline Eye: GENERAL EYE: appearance normal, both eyes and all related structures Neck/C-Spine: COMMON NORMALS: full ROM, no lymphadenopathy, no meningeal signs, no JVD and No carotid bruits GENERAL: No anterior neck swelling and No submandibular swelling Chest: COMMONS NORMALS: normal inspection of the chest OTHER: diffuse palpation of entire chest wall Resp: COMMON NORMALS: normal respiratory effort and clear to auscultation bilaterally AUSCULTATION: clear to auscultation bilaterally Cardio: COMMON NORMALS: no JVD, regular rate and regular rhythm RATE: regular rate RHYTHM: regular rhythm Extremity: GENERAL: Yes normal exam except as noted Neuro: VIVIANA COMA SCALE: document GCS findings Viviana coma scale eye opening: Spontaneous [place] coma scale verbal response: Orientated Viviana coma scale motor response: Obey commands Viviana coma scale total score: 15 COMMON NORMALS: patient oriented x3, moves all extremities, no focal motor deficits, no sensory deficits noted and gait normal SENSORIUM/ORIENTATION: Yes alert, Yes oriented to person, Yes oriented to place and Yes oriented to time MENINGEAL SIGNS: Yes no meningeal signs Skin: COMMON NORMALS: no rashes or lesions noted GENERAL SKIN EXAM: no rashes or lesions noted Course Vital Signs: Vital signs: Vital Signs Temperature 97.8 F 02/01/25 22:50 Pulse Rate 84 02/02/25 00:04 Respiratory Rate 18 02/02/25 00:04 Blood Pressure 143/76 02/01/25 22:50 Pulse Oximetry 98 02/02/25 00:04 Oxygen Delivery Me thod Room Air 02/02/25 00:04 MDM - SOB/Dyspnea Medical Decision Making Patient appears in absolutely no acute distress. He has absolutely no acute complaints at this time as many of his complaints have been going on for well over a year. He is satting normally on room air. His CXR official read showing subtle bibasilar interstitial prominence which could be artifactual but that they cannot definitively rule out interstitial pneumonia/viral etiology. Patient did have labs performed but would like to get home and not stay for results. I will try to follow-up with these. He is stable to follow-up with pulmonology on . He is agreeable to try to follow-up with primary care for his multiple other medical complaints. Differential Diagnosis Likely acute exacerbation of chronic obstructive airways disease and asthma with exacerbation Medical Records I reviewed the patient's medical records. Lab Data 02/02/25 00:47 02/02/25 00:47 Labs/Radiology: Radiology Impressions Chest X-Ray 02/01/25 23:16 IMPRESSION: Subtle bibasilar interstitial prominence, which could be artifactual or represent a component of interstitial pneumonia/viral etiology. Correlate with patient history/physical exam. Laboratory Results WBC 7.64 10^3/uL (3.29-11.43) 02/02/25 00:47 RBC 4.82 10^6/uL (3.85-5.65) 02/02/25 00:47 Hgb 14.80 g/dL (11.27-16.99) 02/02/25 00:47 Hct 42.1 % (37-53) 02/02/25 00:47 MCV 87.3 fl (82-101) 02/02/25 00:47 MCH 30.7 pg (27-33) 02/02/25 00:47 MCHC 35.2 g/dL (30-55) 02/02/25 00:47 RDW 11.9 % (12.1-15.1) L 02/02/25 00:47 Plt Count 243 10^3/cmm (157-399) 02/02/25 00:47 MPV 10.9 fL (7.4-10.4) H 02/02/25 00:47 Neut % (Auto) 60.1 % 02/02/25 00:47 Lymph % (Auto) 29.3 % 02/02/25 00:47 [place] % (Auto) 8.6 % 02/02/25 00:47 Eos % (Auto) 1.2 % 02/02/25 00:47 Baso % (Auto) 0.7 % 02/02/25 00:47 Neut # (Auto) 4.59 10^3/uL (1.8-7.7) 02/02/25 00:47 Lymph # (Auto) 2.2 10^3/uL (0.8-4.8) 02/02/25 00:47 [place] # (Auto) 0.7 10^3/uL (0.2-0.9) 02/02/25 00:47 Eos # (Auto) 0.1 10^3/uL (0.0-0.8) 02/02/25 00:47 Baso # (Auto) 0.1 10^3/uL (0.0-0.1) 02/02/25 00:47 Nucleated RBC % (auto) 0 % 02/02/25 00:47 Nucleated RBCs # 0.0 /100WBC 02/02/25 00:47 Sodium 144 mmol/L (136-145) 02/02/25 00:47 Potassium 3.7 mmol/L (3.5-5.1) 02/02/25 00:47 Chloride 106 mmol/L (98-107) 02/02/25 00:47 Carbon Dioxide 27 mmol/L (22-29) 02/02/25 00:47 Anion Gap 14.7 (5-19) 02/02/25 00:47 BUN 15 mg/dL (6-20) 02/02/25 00:47 Creatinine 0.8 mg/dL (0.7-1.2) 02/02/25 00:47 GFR Calculation 110.7 mL/min (90-130) 02/02/25 00:47 Glucose 132 mg/dL (65-115) H 02/02/25 00:47 Calculated Osmolality 301 mOsm/kg (285-295) H 02/02/25 00:47 Calcium 9.4 mg/dL (8.5-10.5) 02/02/25 00:47 Total Bilirubin 0.6 mg/dL (0.15-1.2) 02/02/25 00:47 AST 25 U/L (0-40) 02/02/25 00:47 ALT 13 U/L (0-41) 02/02/25 00:47 Alkaline Phosphatase 120 U/L (40-130) 02/02/25 00:47 Total Protein 6.3 g/dL (6.6-8.7) L 02/02/25 00:47 Albumin 4.2 g/dL (3.5-5.2) 02/02/25 00:47 Globulin 2.1 g/dL (1.3-4.6) 02/02/25 00:47 All radiology interpretation(s) finalized by discharge Discharge Plan Discharge Patient Disposition: Home Clinical Impression: Chronic dyspnea Condition: Stable Prescriptions: No Action pantoprazole [Protonix] 40 mg tablet,delayed release (DR/EC) 40 mg PO BID 42 Days Qty: 84 1RF sucralfate 100 mg/mL suspension 10 ml PO BID 56 Days Qty: 1120 0RF Rx Instructions: swish in mouth and swallow; use after food/drink amoxicillin-pot clavulanate 875-125 mg tablet 1 tab PO BID 10 Days Qty: 20 0RF dexamethasone 2 mg tablet 6 mg PO DAILY 8 Days Qty: 24 0RF guaifenesin 600 mg tablet extended release 12hr 600 mg PO Q12H Qty: 20 0RF iezkwkdjqklckzv-ydhunryan-OV [Bromfed DM] 2-30-10 mg/5 mL syrup 7.5 ml PO Q6H PRN (Reason: cold symptoms) Qty: 160 0RF albuterol sulfate 90 mcg/actuation HFA aerosol inhaler 2 inh INHALATION Q4H PRN (Reason: shortness of breath or wheezing) Qty: 18 0RF budesonide-formoterol [Symbicort] 80-4.5 mcg/actuation HFA aerosol inhaler 1 inh inhalation BID Qty: 10.2 0RF promethazine 25 mg tablet 25 mg PO Q6H PRN (Reason: nausea and vomiting) Qty: 20 0RF Discharge Orders: Discharge ED (Routine); Ordered 02/02/25 Ordered By: Brigette Tovar Patient Instructions: Patient Portal & Adrienne Instructions Activity Restrictions/Additional Instructions: As we discussed, continue plan to follow-up with pulmonology on as directed. We discussed following up with primary care for evaluation of your other medical complaints. Print Language: Upper Sorbian Coding Level of Care Code ED President/[employer] for Mirza Fleming
[2025-02-01] MEDS: methylPREDNISolone sod succ 125 mg/2 mL INJ IM (23:49)
[2025-02-02 00:04] VITALS: PULSE 84; RESP 18; O2SAT 98
[2025-02-02 00:53] LABS: Hematocrit 42.1 % (37-53); Hemoglobin 14.80 g/dL (11.27-16.99); Mean Corpuscular HGB Conc 35.2 g/dL (30-55); Mean Corpuscular Hemoglobin 30.7 pg (27-33); Mean Corpuscular Volume 87.3 fl (82-101); Nucleated Red Blood Cells % 0 %; Platelet Count 243 10^3/cmm (157-399); Red Blood Count 4.82 10^6/uL (3.85-5.65); White Blood Count 7.64 10^3/uL (3.29-11.43)
[2025-02-02 01:15] LABS: Alanine Aminotransferase 13 U/L (0-41); Albumin Level 4.2 g/dL (3.5-5.2); Alkaline Phosphatase 120 U/L (40-130); Anion Gap 14.7 (5-19); Aspartate Amino Transferase 25 U/L (0-40); Blood Urea Nitrogen 15 mg/dL (6-20); Calcium 9.4 mg/dL (8.5-10.5); Carbon Dioxide 27 mmol/L (22-29); Chloride 106 mmol/L (98-107); Creatinine Clr Calc Pharmacy 148.4199; Globulin 2.1 g/dL (1.3-4.6); Glucose 132 mg/dL (65-115); Osmolality Calculated 301 mOsm/kg (285-295); Potassium 3.7 mmol/L (3.5-5.1); Sodium 144 mmol/L (136-145); Total Protein 6.3 g/dL (6.6-8.7)
== END 2025-02-02 01:05 | disposition home or self-care (01) ==
PROVIDERS: Emergency Provider Physician Assistant
DX: R06.09 Other forms of dyspnea (principal); F17.210 Nicotine dependence, cigarettes, uncomplicated; I10 Essential (primary) hypertension; Z85.820 Personal history of malignant melanoma of skin
CPT/HCPCS: 36415; 71045; 80053; 85025; 93005; 94640; 96372; 99284; J2919; J7613